=== PATIENT | female | born 2000 | race Caucasian/White ===

== ENCOUNTER 2025-01-04 09:16 | Emergency (ER) | payer OTHER, SELFPAY ==
[2025-01-04 09:16] VITALS: BP 127/82; PULSE 81; RESP 18; TEMP 36.8; O2SAT 100; BMI 16.7
--- NOTE | 2025-01-04 10:25 | EX.ED.DYSGE1 ---
HPI History of Present Illness Chief Complaint: Anxiety Narrative Narrative: Chief complaint and HPI: 24-year-old female with past medical history of depression and anxiety presents for evaluation of anxiety. Patient states since September her psychiatrist has been weaning down her sertraline. States she was on 50 mg daily and is now on 25 mg daily. Since decreasing her sertraline she feels that her anxiety is worsening. She recently lost her health insurance and gained it back and therefore she did not follow-up with her psychiatrist. Patient states earlier today she developed a panic attack and states she is still anxious. Associated symptom is nausea. She denies any visual or auditory hallucinations. Denies any homicidal or suicidal ideation. Review of systems: See HPI Medications: As listed on the chart Allergies: As listed on the chart PFSH: Per chart Vital signs: As listed on the chart. Reviewed. Physical exam: Gen: A&O x3, NAD but mildly anxious Head: Normocephalic, atraumatic Eyes: No sclera icterus, conjunctiva clear ENT: Moist mucous membranes CV: RRR, no murmurs Resp: Lungs CTA BL, no w/r/c Musc: Full ROM, no deformity Skin: Warm, dry Psych: Cooperative, mildly anxious [facility] Medical History (Updated 01/04/25 @ 09:42 by Fartun Martinez) Anxiety Home Medications ?Medication ?Instructions ?Recorded ?Last Taken ?Type sertraline 25 mg tablet 25 mg PO DAILY 01/04/25 Unknown History Allergy/AdvReac Type Severity Reaction Status Date / Time amoxicillin AdvReac Upset Verified 01/04/25 09:17 Stomach Social History Smoking Status: Light Smoker (<10/day) EXAM Physical Exam Const Vital Signs: 01/04/25 09:16 Temperature 98.2 F Temperature Source Oral Pulse Rate 81 Respiratory Rate 18 Blood Pressure 127/82 H Blood Pressure Mean 97 Pulse Ox 100 Oxygen Delivery Method Room Air MDM MDM MDM Narrative Medical decision making narrative: 24-year-old female with past medical history of depression and anxiety presents for evaluation of anxiety. Patient states since September her psychiatrist has been weaning down her sertraline. States she was on 50 mg daily and is now on 25 mg daily. Since decreasing her sertraline she feels that her anxiety is worsening. Patient states earlier today she developed a panic attack and states she is still anxious. Associated symptom is nausea. She denies any visual or auditory hallucinations. Denies any homicidal or suicidal ideation. On presentation, patient no acute distress but mildly anxious. Her vitals are stable. She does have a ride home to the emergency department. P.o. Ativan and Adria ordered. Will monitor. Differential diagnosis includes but is not limited to anxiety, panic attack. On reevaluation, patient states her anxiety has improved. She has remained in no acute distress here in the emergency department. Patient stable to discharge home. Recommend following up with psychiatrist. Return precautions explained. She confirmed understand the plan. Impression: 1. Anxiety reaction 2. History of anxiety Discharge Plan Triage Chief Complaint: Anxiety ED Provider: Manav Mayorga Dx/Rx/DC Orders Prescriptions: No Action sertraline 25 mg tablet 25 mg PO DAILY Primary Care Provider: Care Physician,Bianka Primary Referrals: NOT,DEFINED [Non-Staff, None] Print Language: Lithuanian
--- OUTSIDE RECORDS SUMMARY | 2025-01-04 10:42 | XMS RPT_ITS | CCD ---
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 automated imaging and review system which assists the laboratory in evaluating cells on ThinPrep tests. Following automated imaging selected caal from every slide are reviewed by a clinical rn liaison. Specimen processing and Primary Screening performed at: [facility] - [address] [place] [address] 03/19/23 Yes Normal [facility] Comment on above: Performed By: #### [id number] #### [facility] [address] [place] [address] Rory Rueda M.D. [id number] CULTURE, URINE, ROUTINEon CULTURE, URINE, ROUTINE SEE NOTE Normal [facility] Comment on above: Result Comment: CULTURE, URINE, ROUTINE Micro Number: [id number] Test Status: Final Specimen Source: Urine, clean catch Specimen Quality: Adequate Result: Less than 10,000 CFU/mL of single Gram positive organism isolated. No further testing will be performed. If clinically indicated, recollection using a method to minimize contamination, with prompt transfer to Urine Culture Transport Tube, is recommended. Performed By: #### 3 [id number] #### [facility] [address], [address] [place] [address] Powerhouse Electrician: Ernie Solis MD Laboratory - Chemistry and C hemistry - challengeOrdered By: Mabel Valdivia on 02-26-2024 Bilirubin Ql (U) Negative Negative [facility] Glucose Ql (U) Negative Normal, Negative mg/dL [facility] Ketones Ql (U) Negative Negative mg/dL [facility] pH (U) 5.5 [pH] 5.0 - 7.0 [facility] Specific gravity (U) [Rel density] 1.025 1.005 - 1.025 [facility] Urobilinogen Qn (U) 0.2 mg/dL <2.0, 0. 2, Normal, Negative, 1.0, 2.0, <1.0 [facility] Laboratory - Hematology and Cell countsOrdered By: Mabel Valdivia on 02-26-2024 Hemoglobin Ql (U) Negative Negative [facility] Laboratory - Specimen inform ationOrdered By: Mabel Valdivia on 02-26-2024 Color (U) Yellow Yellow, Light Yellow, Dark Yellow [facility] Laboratory - UrinalysisOrder ed By: Mabel Valdivia on 02-26-2024 Leukocyte esterase Test strip Ql (U) Negative Negative [facility] Nitrite Ql (U) Negative Negative [facility] Protein Ql (U) 100 mg/dL Abnormal Negative [facility] No Panel InformationOrdered By: Mabel Valdivia on 02-26-2024 Clarity, UA Clear Clear [facility] Interpretation and review of laboratory results Abnormal [facility] URINE AEROBIC CULTUREon 02-16 URINE AEROBIC CULTURE EXT JANI - CULTURE, URINE, ROUTINE SEE NOTE CULTURE, URINE, ROUTINE Micro Number: [id number] Test Status: Final Specimen Source: Urine, clean catch Specimen Quality: Adequate Result: Less than 10,000 CFU/mL of single Gram positive organism isolated. No further testing will be performed. If clinically indicated, recollection using a method to minimize contamination, with prompt transfer to Urine Culture Transport Tube, is recommended. Normal [facility] T-SPOT TB SCREENon [place] - T-SPOT TB Negative Normal [facility] Comment on above: Order Comment: Darcie leong see scanned result for additional information Performed By: #### [id number] #### [facility] [address] [address] TSPOT URINALYSIS, CULTURE IFon BACTERIA FEW Normal Few [facility] Comment on above: Performed By: #### Soy Burgess UCNT1 #### [facility] [address] [place] [address] #### UC-R #### Main Laboratory [address] [place], [place] EPITHELIAL 0 -2 Normal 0 -2 [facility] Comment on above: Performed By: #### Soy Burgess UCNT1 #### [facility] [address] [place] [address] #### UC-R #### Main Laboratory [facility] [address] [place], [place] RBC 0 -2 Normal 0 -2 [facility] Comment on above: Performed By: #### Soy Burgess UCNT1 #### [facility] [address] [place] [address] #### UC-R #### Main Laboratory [address] [place], [place] WBC 11 -20 Abnormal 0 -2 [facility] Comment on above: Performed By: #### Soy Burgess UCNT1 #### [facility] [address] [place] [address] #### UC-R #### Main Laboratory [address] [place], [place] Appearance (U) SLCLOUDY Abnormal Clear [facility] Comment on above: Performed By: #### Soy Burgess UCNT1 #### [facility] [address] [place] [address] #### UC-R #### Main Laboratory [facility] [place], [place] Bilirubin Ql (U) Negative Normal NEGATIVE [facility] Comment on above: Performed By: #### U A, UCNT1 #### [facility] [address] [place] [address] #### UC-R #### Main Laboratory [address] [place] [address] [address] [place], [place] Color (U) Yellow Normal YELLOW [facility] Comment on above: Performed By: #### U A, UCNT1 #### [facility] [address] [place] [address] #### UC-R #### Main Laboratory [address] [place] [address] [address] [place], [place] Glucose Ql (U) Negative Normal NEGATIVE [facility] Comment on above: Performed By: #### U A, UCNT1 #### [facility] [address] [place] [address] #### UC-R #### Main Laboratory [address] [place] [address] [address] [place], [place] Hemoglobin Ql (U) Trace-intact Abnormal NEGATIVE [facility] Comment on above: Performed By: #### U A UCNT1 #### [facility] [address] [place] [address] #### UC-R #### Main Laboratory [address] [place] [address], [place] Ketones Ql (U) Negative Normal NEGATIVE [facility] Comment on above: Performed By: #### U A, UCNT1 #### [facility] [address] [place] [address] 68[address] #### UC-R #### Main Laboratory [address] [place] [address] [address] [place], [place] LEUK. ESTERASE Small Abnormal NEGATIVE [facility] Comment on above: Performed By: #### U A, UCNT1 #### [facility] [address] [place] [address] #### UC-R #### Main Laboratory [facility] [address] Nitrite Ql (U) Negative Normal NEGATIVE [facility] Comment on above: Performed By: #### Soy Burgess UCNT1 #### [facility] [address] [place] [address] 9[address] #### UC-R #### Main Laboratory [address] [place] [address] pH (U) 7.0 [pH] Normal 5.0-7.0 [facility] Comment on above: Performed By: #### Soy Burgess UCNT1 #### [facility] [address] [place] [address] #### UC-R #### Main Laboratory [address] [place] [address] Protein Ql (U) Negative Normal NE[facility]IVE [facility] Comment on above: Performed By: #### Soy Burgess UCNT1 #### [facility] [address] [place] [address] 186[address] #### UC-R #### Main Laboratory [address] [place] [address] SP. GRAV. 1.015 Normal 1.002-1.030 [facility] Comment on above: Performed By: #### Soy Burgess UCNT1 #### [facility] [address] [place] [address] #### UC-R #### Main Laboratory [address] [place] [address] Urobilinogen (U) [Mass/Vol] 0.2 mg/dL Normal <1.0 [facility] Comment on above: Performed By: #### Soy Burgess UCNT1 #### [facility] [address] [place] [address] 74555 #### UC-R #### Main Laboratory [address] [place] [address] URINE CULTURE - REFLEXEDon 0 09-15-2023 URINE CULTURE - REFLEXED [facility] Department of Laboratory Medicine PATIENT: WILLOW VALDEZ LOCATION: [facility] IKala#: : [id number] AGE: 22 SEX: F DISCHARGED: // M I C R O B I O L O G Y ORDER #: [id number] ORDERED BY: ALEIDA RAMIREZ SOURCE: Urine COLLECTED: 09/15/2023 13:55 URINE CULTURE - REFLEXED - F 09/18/2023 09:31 No Growth. S = Sensitive R = Resisitant I = Intermediate LAB: [facility] [address] ATT.PHYS.: ALEIDA RAMIREZ LOCATION: [facility] Comment on above: Performed By: #### Soy Burgess UCNT1 #### [facility] [address] [place] [address] #### UC-R #### Main Laboratory [address] [place], [place] URINE CULTURE NOTEon 024 URINE CULTURE NOTE see below Abnormal [facility] Comment on above: Result Comment: Urin alysis results meet accepted criteria for reflexed urine culture to be performed. Urine culture results to follow. Performed By: #### U A, UCNT1 #### [facility] [address] [place] [address] #### UC-R #### Main Laboratory [address] [place] [address] Laboratory - Microbiology an d Antimicrobial susceptibilityOrdered By: Roxanne Bourne on 07-03-2023 S. pyogenes Ag Ql (Throat) Negative Negative [facility] No Panel InformationOrdered By: Roxanne Bourne on 07-03-2023 [facility] URINALYSIS, CULTURE IFon BACTERIA FEW Normal Few [facility] Comment on above: Performed By: #### U C-R #### Main Laboratory [address] [place] [address] #### UCNT1, UA #### [facility] [address] [place] [address] RBC 0 -2 Normal 0 -2 [facility] Comment on above: Performed By: #### U C-R #### Main Laboratory [address] [place] [address] #### UCNT1, UA #### [facility] [address] [place] [address] WBC 10 -20 Abnormal 0 -2 [facility] Comment on above: Performed By: #### U C-R #### Main Laboratory [address] [place] [address] #### UCNT1, UA #### [facility] [address] [place] [address] Appearance (U) Clear Normal Clear [facility] Comment on above: Performed By: #### U C-R #### Main Laboratory [address] [place] [address] #### UCNT1, UA #### [facility] [address] [place] [address] Bilirubin Ql (U) Negative Normal NEGATIVE [facility] Comment on above: Performed By: #### U C-R #### Main Laboratory [address] [place] [address] #### UCNT1, UA #### [facility] [address] [place] [address] Color (U) Yellow Normal YELLOW [facility] Comment on above: Performed By: #### U C-R #### Main Laboratory [address] [place] [address] #### UCNT1, UA #### [facility] [address] [place] [address] Glucose Ql (U) Negative Normal NEGATIVE [facility] Comment on above: Performed By: #### U C-R #### Main Laboratory [address] [place] [address] #### UCNT1, UA #### [facility] [address] [place] [address] Hemoglobin Ql (U) Trace-intact Abnormal NEGATIVE [facility] Comment on above: Performed By: #### U C-R #### Main Laboratory [address] [place] [address] #### UCNT1, UA #### [facility] [address] [place] [address] Ketones Ql (U) Negative Normal NEGATIVE [facility] Comment on above: Performed By: #### U C-R #### Main Laboratory [address] [place] [address] #### UCNT1, UA #### [facility] [address] [place] [address] LEUK. ESTERASE Trace Abnormal NEGATIVE [facility] Comment on above: Performed By: #### U C-R #### Main Laboratory [address] [place] [address] #### UCNT1, UA #### [facility] [address] [place] [address] Nitrite Ql (U) Negative Normal NEGATIVE [facility] Comment on above: Performed By: #### U C-R #### Main Laboratory [address] [place] [address] #### UCNT1, UA #### [facility] [address] [place] [address] pH (U) 6.5 [pH] Normal 5.0-7.0 [facility] Comment on above: Performed By: #### U C-R #### Main Laboratory [address] [place] [address] #### UCNT1, UA #### [facility] [address] [place] [address] Protein Ql (U) 100 mg/dL Abnormal NEGATIVE [facility] Comment on above: Performed By: #### U C-R #### Main Laboratory [address] [place] [address] #### UCNT1, UA #### [facility] [address] [place] [address] SP. GRAV. >=1.030 Abnormal 1.002-1.030 [facility] Comment on above: Performed By: #### U C-R #### Main Laboratory [address] [place] [address] #### UCNT1, UA #### [facility] [address] [place] [address] Urobilinogen (U) [Mass/Vol] 0.2 mg/dL Normal <1.0 [facility] Comment on above: Performed By: #### U C-R #### Main Laboratory [address] [place], [place] #### UCNT1, #### [facility] [place] [address] URINE CULTURE - REFLEXEDon 0 12-16-2022 URINE CULTURE - REFLEXED [facility] Department of Laboratory Medicine PATIENT: WILLOW VALDEZ LOCATION: [facility]#: : [id number] AGE: 22 SEX: F DISCHARGED: // M I C R O B I O L O G Y ORDER #: [id number] ORDERED BY: LINO BLANCHARD SOURCE: Urine COLLECTED: 12/16/2022 15:44 URINE CULTURE - REFLEXED - F 12/20/2022 08:43 Organism #1 - Staphylococcus saprophyticus >100,000cfu/mL Rifampin should not be used alone for antimicrobial therapy. Inducible Clindamycin Resistance Negative. ISOLATE !ORG# 01! ANTIBIOTIC ! Ciprofloxacin ! S ! Clindamycin ! R ! Erythromycin ! R ! Gentamicin ! S ! Levofloxacin ! S ! Linezolid ! S ! Moxifloxacin ! S ! Nitrofurantoin ! S ! Oxacillin THU ! R ! Penicillin-G ! R ! Quinupristin/Dalfo prist ! S ! Rifampin ! S ! Tetracycline ! S ! Trimethoprim/Sulfa ! S ! Vancomycin ! S ! S = Sensitive R = Resisitant I = Intermediate LAB: [facility] [address] ATT.PHYS.: LINO BLANCHARD LOCATION: [facility] Comment on above: Performed By: #### U C-R #### Main Laboratory [address] [place], [place] #### UCNT1, UA #### [facility] [phone] [address] [place] [address] URINE CULTURE NOTEon 023 URINE CULTURE NOTE see below Abnormal [facility] Comment on above: Result Comment: Urin alysis results meet accepted criteria for reflexed urine culture to be performed. Urine culture results to follow. Performed By: #### U C-R #### Main Laboratory [address] [place], [place] #### UCNT1, UA #### [facility] [address] [place] [address] Basic metabolic 2000 panelon 09-21-2022 Anion gap [Moles/Vol] 14 mmol/L 10 - 2 0 mmol/L [facility] Calcium [Mass/Vol] 9.6 mg/dL 8.4 - 10. 2 mg/dL [facility] Chloride [Moles/Vol] 104 mmol/L 98 - 10 8 mmol/L [facility] Creatinine [Mass/Vol] 0.82 mg/dL 0.40 - 1.10 mg/dL [facility] GFR/1.73 sq M.predicted CKD-EPI (S/P/Bld) [Vol rate/Area] 105 - PINF [facility] Comment on above: Estimated GFR was ca lculated using the 2020 CKD-EPI creatinine equation. Glucose [Mass/Vol] 97 mg/dL 65 - 99 mg/dL [facility] HCO3 [Moles/Vol] 26 mmol/L 21 - 32 mmol/L [facility] Potassium [Moles/Vol] 4.5 mmol/L 3.5 - 5.1 mmol/L [facility] Sodium [Moles/Vol] 139 mmol/L 135 - 145 mmol/L [facility] Urea nitrogen [Mass/Vol] 8 mg/dL 8 - 25 mg/d L [facility] Urea nitrogen/Creatinine [Mass ratio] 9.8 mg/mg Low 10.0 - 20.0 [facility] has implemented the eGFR calculation approach that does not have a coefficient for race that conforms to the NKF-ASN Task Force Recommendations. [facility] CBC Auto Differentialon 07-0 Basophils (Bld) [#/Vol] 0.03 10*3/uL [facility] Basophils/100 WBC (Bld) 0.5 % [facility] Eosinophils (Bld) [#/Vol] 0.05 10*3/uL [facility] Eosinophils/100 WBC (Bld) 0.9 % [facility] Erythrocyte distribution width (RBC) [Entitic vol] 11.8 % 11.6 - 14.8 % [facility] Hematocrit (Bld) [Volume fraction] 39.9 % 36.0 - 46.0 % [facility] Hemoglobin (Bld) [Mass/Vol] 12.9 g/dL 12.0 - 16.0 g/dL [facility] Immature granulocytes (Bld) [#/Vol] 0.01 10*3/uL [facility] Immature granulocytes/100 WBC (Bld) 0.20 % [facility] Comment on above: The IG parameter is the percentage of metamyelocytes, myelocytes and promyelocytes. An immature granulocyte count (IG) of 1% or more suggests the possibility of infection, an IG count of 3% is very likely related to an infection. Lymphocytes (Bld) [#/Vol] 1.58 10*3/uL [facility] Lymphocytes/100 WBC (Bld) 28.9 % [facility] MCH (RBC) [Entitic mass] 30.0 pg 26. 0 - 34.0 pg [facility] MCHC (RBC) [Mass/Vol] 32.3 g/dL 31.0 - 37.0 g/dL [facility] MCV (RBC) [Entitic vol] 92.8 fL 80.0 - 100.0 fL [facility] Monocytes (Bld) [#/Vol] 0.43 10*3/uL [facility] Monocytes/100 WBC (Bld) 7.9 % [facility] Neutrophils (Bld) [#/Vol] 3.37 10*3/uL [facility] Neutrophils/100 WBC (Bld) 61.6 % [facility] Nucleated RBC (Bld) [#/Vol] 0.00 10*3/uL [facility] Nucleated RBC/100 WBC (Bld) [Ratio] 0.0 % [facility] Platelet mean volume (Bld) [Entitic vol] 11.8 fL 9.4 - 12.4 fL [facility] Platelets (Bld) [#/Vol] 256 10*3/uL [facility] RBC (Bld) [#/Vol] 4.30 10*6/uL [facility] ealth WBC (Bld) [#/Vol] 5.47 10*3/uL [facility] Ferritin [Mass/Vol]on 2022 Interpretation and review of laboratory results Normal [facility] Laboratory - Chemistry and C hemistry - challengeon 09-21-2022 Ferritin [Mass/Vol] 25 ng/mL 13 - 150 ng/mL [facility] No Panel Informationon 09-21 Interpretation and review of laboratory results Abnormal [facility] TSH DL <= 0.005 mIU/L Qnon 0 09-21-2022 TSH Qn 5.19 m[IU]/L [facility] No Panel Informationon 09-15 Interpretation and review of laboratory results Normal [facility] TB Skin Test Negative Negative [facility] Urinalysis macro (dipstick) panel (U)on 06-22-2022 Appearance (U) [facility] bilirubin dept urine Negative [facility] blood dept urine SMALL [facility] Color (U) YELLOW [facility] glucose dept urine Negative [facility] ketones dept urine Negative [facility] leukocyte dept urine SMALL [facility] nitrites dept urine Positive [facility] pH urine dept 7.0 [facility] protein dept urine Negative [facility] specific gravity dept urine 1.020 [facility] urobiliinogen dept urine 0.2 [facility] COVID-19, Molecularon 2021 SARS-CoV-2 (COVID-19) RdRp gene MACKENZIE+probe Ql (Resp) Not detected Not Detected [facility] Comment on above: This test was perfor med under the FDA's Emergency Use Authorization (EUA). Testing was performed using the Patel ID NOW COVID-19 assay on the ID NOW platform. This test has not been approved for use in asymptomatic patients and its performance in this patient population has not been evaluated. Negative results do not rule out the presence of SARS-CoV-2/COVID-19. Fact sheets for the EUA can be found at the following links: For Healthcare Providers: https://www.fda.gov/media/456667/download For Patients: https://www.fda.gov/media/527168/download SARS-CoV-2 (COVID-19) RdRp g johana MACKENZIE+probe Ql (Resp)on 06-29-2021 Interpretation and review of laboratory results Normal [facility] FLUAV+FLUBV Ag Ql (Nose)on 0 06-28-2021 influenza A Negative [facility] influenza B Negative [facility] CT ABDOMEN PELVIS WITH IV CO NTRAST ONLYon 07-31-2018 CT ABDOMEN PELVIS WITH IV CONTRAST ONLY EXAMINATION: CT ABDOMEN PELVIS WITH IV CONTRAST ONLY HISTORY: ORDERING SYSTEM PROVIDED HISTORY: rlq pain ro appy, TECHNOLOGIST PROVIDED HISTORY: Reason for exam: Patient has had LRQ pain for about 1 week, has had a UTI and mono recently. Illness/Other Encounter Type: Initial Additional signs and symptoms: None ORDERING SYSTEM PROVIDED DIAGNOSIS CODES: COMPARISON: None TECHNIQUE: CT examination of the abdomen and pelvis following the administration of intravenous contrast. Coronal and sagittal reformations were performed. Dose reduction techniques were achieved by using automated exposure control and/or adjustment of mA and/or kV according to patient size and/or use of iterative reconstruction technique. CONTRAST: IOPAMIDOL 76 % INTRAVENOUS SOLUTION - 75 mL, FINDINGS: CT SCAN OF THE ABDOMEN: The lung bases are clear. There is elongation of the left lobe of the liver. No hepatic masses or biliary ductal dilatation is seen. Spleen, pancreas, adrenal glands, and kidneys are normal. Proximal bowel is normal. No free fluid or inflammatory changes are seen. CT SCAN OF THE PELVIS: The distal ureters and bladder are normal. Uterus is normal with a small fibroid posteriorly in the fundus measuring 9 mm. Small cyst in the right ovary. Distal bowel and appendix are normal. No evidence for free fluid or inflammatory changes. IMPRESSION: 1. No acute process identified. No evidence for appendicitis. 2. Small physiologic cyst, right ovary. Small uterine fibroid suspected, measuring 8 mm. MA/ads Workstation ID: [id number] Dictated by: IVONNE RILEY on SunJuly 31, 2018 1:43:18 PM EDT Transcribed by: AFRICA BERNARD IN [employer] on SunJuly 31, 2018 1:48:19 PM EDT Finalized by: IVONNE RILEY on SunJuly 31, 2018 2:16:23 PM EDT Dictated by: IVONNE RILEY on SunJuly 31, 2018 1:43:18 PM EDT Transcribed by: AFRICA BERNARD IN [employer] on SunJuly 31, 2018 1:48:19 PM EDT Finalized by: IVONNE RILEY on SunJuly 31, 2018 2:16:[address] [facility] Comment on above: Order Comment: Reaso n for exam?:Patient has had LRQ pain for about 1 week, has had a UTI and mono recently. Injury/Trauma or Illness?:Illness/Other How long have you had these symptoms (acute/chronic)?:Acute Type of Exam?:Initial Additional signs and symptoms?:None CT Abdomen Pelvis With IV Co ntrast Onlyon 07-31-2018 EXAMINATION: CT ABDOMEN PELVIS WITH IV CONTRAST ONLY HISTORY: ORDERING SYSTEM PROVIDED HISTORY: rlq pain ro appy, TECHNOLOGIST PROVIDED HISTORY: Reason for exam: Patient has had LRQ pain for about 1 week, has had a UTI and mono recently. Illness/Other Encounter Type: Initial Additional signs and symptoms: None ORDERING SYSTEM PROVIDED DIAGNOSIS CODES: COMPARISON: None TECHNIQUE: CT examination of the abdomen and pelvis following the administration of intravenous contrast. Coronal and sagittal reformations were performed. Dose reduction techniques were achieved by using automated exposure control and/or adjustment of mA and/or kV according to patient size and/or use of iterative reconstruction technique. CONTRAST: IOPAMIDOL 76 % INTRAVENOUS SOLUTION - 75 mL, FINDINGS: CT SCAN OF THE ABDOMEN: The lung bases are clear. There is elongation of the left lobe of the liver. No hepatic masses or biliary ductal dilatation is seen. Spleen, pancreas, adrenal glands, and kidneys are normal. Proximal bowel is normal. No free fluid or inflammatory changes are seen. CT SCAN OF THE PELVIS: The distal ureters and bladder are normal. Uterus is normal with a small fibroid posteriorly in the fundus measuring 9 mm. Small cyst in the right ovary. Distal bowel and appendix are normal. No evidence for free fluid or inflammatory changes. [facility] 1. No acute process identified. No evidence for appendicitis. 2. Small physiologic cyst, right ovary. Small uterine fibroid suspected, measuring 8 mm. MA/ads Workstation ID: [id number] [employer] - 07/31/2018 2:18 PM EDT EXAMINATION: CT ABDOMEN PELVIS WITH IV CONTRAST ONLY HISTORY: ORDERING SYSTEM PROVIDED HISTORY: rlq pain ro appy, TECHNOLOGIST PROVIDED HISTORY: Reason for exam: Patient has had LRQ pain for about 1 week, has had a UTI and mono recently. Illness/Other Encounter Type: Initial Additional signs and symptoms: None ORDERING SYSTEM PROVIDED DIAGNOSIS CODES: COMPARISON: None TECHNIQUE: CT examination of the abdomen and pelvis following the administration of intravenous contrast. Coronal and sagittal reformations were performed. Dose reduction techniques were achieved by using automated exposure control and/or adjustment of mA and/or kV according to patient size and/or use of iterative reconstruction technique. CONTRAST: IOPAMIDOL 76 % INTRAVENOUS SOLUTION - 75 mL, FINDINGS: CT SCAN OF THE ABDOMEN: The lung bases are clear. There is elongation of the left lobe of the liver. No hepatic masses or biliary ductal dilatation is seen. Spleen, pancreas, adrenal glands, and kidneys are normal. Proximal bowel is normal. No free fluid or inflammatory changes are seen. CT SCAN OF THE PELVIS: The distal ureters and bladder are normal. Uterus is normal with a small fibroid posteriorly in the fundus measuring 9 mm. Small cyst in the right ovary. Distal bowel and appendix are normal. No evidence for free fluid or inflammatory changes. IMPRESSION: 1. No acute process identified. No evidence for appendicitis. 2. Small physiologic cyst, right ovary. Small uterine fibroid suspected, measuring 8 mm. MA/ads Workstation ID: [id number] [facility] POC CBC and Differentialon 0 - Basophils (Bld) [#/Vol] 0.02 10*3/uL [facility] Basophils/100 WBC (Bld) 0.2 % [facility] Eosinophils (Bld) [#/Vol] 0.03 10*3/uL [facility] Eosinophils/100 WBC (Bld) 0.3 % [facility] Erythrocyte distribution width (RBC) [Entitic vol] 11.5 % Low 11.6 - 14.8 % [facility] Hematocrit (Bld) [Volume fraction] 43.0 % 36 - 46 % [facility] Hemoglobin (Bld) [Mass/Vol] 14.1 g/dL 12 - 16 g/dL [facility] Immature granulocytes (Bld) [#/Vol] 0.01 10*3/uL [facility] Immature granulocytes/100 WBC (Bld) 0.10 % [facility] Comment on above: The IG parameter is the percentage of metamyelocytes, myelocytes, and promyelocytes. Interpretation and review of laboratory results Abnormal [facility] Lymphocytes (Bld) [#/Vol] 1.06 10*3/uL Low [facility] Lymphocytes/100 WBC (Bld) 10.5 % [facility] MCH (RBC) [Entitic mass] 30.2 pg 25 - 35 pg [facility] MCHC (RBC) [Mass/Vol] 32.8 g/dL 31 - 37 g/dL [facility] MCV (RBC) [Entitic vol] 92.1 fL 78 - 102 fL [facility] Monocytes (Bld) [#/Vol] 1.12 10*3/uL [facility] Monocytes/100 WBC (Bld) 11.1 % [facility] Neutrophils (Bld) [#/Vol] 7.88 10*3/uL [facility] Neutrophils/100 WBC (Bld) 77.8 % [facility] Platelet mean volume (Bld) [Entitic vol] 10.7 fL 9 - 15.5 fL [facility] Platelets (Bld) [#/Vol] 272 10*3/uL [facility] RBC (Bld) [#/Vol] 4.67 10*6/uL [facility] WBC (Bld) [#/Vol] 10.12 10*3/uL [facility] POC Liver Panel Pluson 07-31 Albumin [Mass/Vol] 3.9 g/dL 3.2 - 4.5 g/dL [facility] ALP [Catalytic activity/Vol] 81 U/L Low 110 - 630 U/L [facility] ALT [Catalytic activity/Vol] 11 U/L 0 - 40 U/L [facility] Amylase [Catalytic activity/Vol] 58 U/L 25 - 115 U/L [facility] AST [Catalytic activity/Vol] 18 U/L 0 - 45 U/L [facility] Bilirubin [Mass/Vol] 0.7 mg/dL 0 - 1.3 mg/dL [facility] Gamma glutamyl transferase [Catalytic activity/Vol] 9 U/L 7 - 33 U/L [facility] Interpretation and review of laboratory results Abnormal [facility] Protein [Mass/Vol] 7.5 g/dL 6 - 8 g/dL [facility] POC , Urineon 07-31 Beta HCG ( test) Ql (U) Dilute urine specimens, as indicated by a low specific gravity (<1.010) may not contain traffic workforce representative levels of hCG. If is still suspected, a serum test or repeat urine test using a first morning urine specimen should be considered. [facility] HCG ( test) Ql (U) Negative Negative [facility] Interpretation and review of laboratory results Normal [facility] POC Urinalysis Dipstick, Aut oon 07-31-2018 Bilirubin Ql (U) Negative Negative [facility] Glucose Ql (U) 100 Abnormal Negative mg/dL [facility] Hemoglobin Ql (U) Large Abnormal Negative [facility] Interpretation and review of laboratory results Abnormal [facility] Ketones Ql (U) 40 Abnormal Negative mg/dL [facility] Leukocyte esterase Test strip Ql (U) Small Abnormal Negative [facility] Nitrite Ql (U) Negative Negative [facility] pH (U) 6.5 [pH] [facility] Protein Ql (U) >=300 Abnormal Negative mg/dL [facility] Specific gravity (U) [Rel density] 1.020 [facility] Urobilinogen Qn (U) 0.2 mg/dL <2.0 [facility] POC Venous Blood Gases with Full Panelon 07-31-2018 Base excess Calc (BldV) [Moles/Vol] 2.6 mmol/L [facility] Calcium.ionized [Mass/Vol] 5.1 mg/dL 4.5 - 5.3 mg/dL [facility] Chloride [Moles/Vol] 105 mmol/L 98 - 10 8 mmol/L [facility] CO2 (BldV) [Partial pressure] 49.4 mm[Hg] [facility] Creatinine [Mass/Vol] 0.98 mg/dL 0.5 - 1 mg/dL [facility] GFR/1.73 sq M predicted among non-blacks MDRD (S/P/Bld) [Vol rate/Area] The eGFR should be used for monitoring renal function only and not for medication dosing. Specimens collected in a lithium heparin tube may show erroneous pO2, pCO2 and related calculations due to aerobic handling. If the most accurate venous blood gas results are needed, use a heparinized blood gas syringe. [facility] Glucose [Mass/Vol] 107 mg/dL High 65 - 99 mg/dL [facility] HCO3 (Bld) [Moles/Vol] 29.0 mmol/L High 24 - 28 mmol/L [facility] Hematocrit (Bld) [Volume fraction] 49 % High 36 - 46 % [facility] Hemoglobin (Bld) [Mass/Vol] 16.8 g/dL High 12 - 16 g/dL [facility] Interpretation and review of laboratory results Abnormal [facility] Lactate [Moles/Vol] 0.8 mmol/L 0.6 - 2 mmol/L [facility] Oxygen (BldV) [Partial pressure] 19 mm[Hg] Low [facility] Oxygen saturation in Venous blood 26.3 % [facility] pH (BldV) 7.38 [pH] [facility] Potassium [Moles/Vol] 3.7 mmol/L 3.5 - 5.1 mmol/L [facility] Sodium [Moles/Vol] 140 mmol/L 135 - 145 mmol/L [facility] POC Urinalysis Dipstickon Bilirubin Ql (U) Negative Negative [facility] Glucose Ql (U) Negative Normal, Negative mg/dL [facility] Hemoglobin Ql (U) Moderate Abnormal Negative [facility] Interpretation and review of laboratory results Abnormal [facility] Ketones Ql (U) Negative Negative mg/dL [facility] Leukocyte esterase Test strip Ql (U) Small Abnormal Negative [facility] Nitrite Ql (U) Positive Abnormal Negative [facility] pH (U) 6.5 [pH] [facility] Protein Ql (U) 300 Abnormal Negative mg/dL [facility] Specific gravity (U) [Rel density] 1.025 [facility] Urobilinogen Qn (U) 0.2 mg/dL <2.0, 0. 2, Normal, Negative, 1.0, 2.0, <1.0 [facility] POC RAPID STREP Aon 07-26-19 19 S. pyogenes Ag Ql (Throat) Negative Negative [facility] POC CBC and Differentialon 0 06-01-2018 Basophils #/vol (Bld) 0.03 10*3/uL [facility] Basophils/100 WBC (Bld) 0.5 % [facility] Eosinophils #/vol (Bld) 0.02 10*3/uL [facility] Eosinophils/100 WBC (Bld) 0.3 % [facility] Erythrocyte distribution width Entitic volume (RBC) 11.6 % 11.6 - 14.8 % [facility] Hematocrit Volume Fraction (Bld) 42.5 % 36 - 46 % [facility] Hemoglobin mass conc (Bld) 13.9 g/dL 12 - 16 g/dL [facility] Immature granulocytes #/vol (Bld) 0.00 10*3/uL [facility] Immature granulocytes/100 WBC (Bld) 0.00 % [facility] Comment on above: The IG parameter is the percentage of metamyelocytes, myelocytes, and promyelocytes. Interpretation and review of laboratory results Abnormal [facility] Lymphocytes #/vol (Bld) 0.38 10*3/uL [facility] Lymphocytes/100 WBC (Bld) 6.0 % [facility] MCH Entitic mass (RBC) 30.1 pg 25 - 35 pg [facility] MCHC mass conc (RBC) 32.7 g/dL 31 - 37 g/dL [facility] MCV Entitic volume (RBC) 92.0 fL 78 - 102 fL [facility] Monocytes #/vol (Bld) 0.59 10*3/uL [facility] Monocytes/100 WBC (Bld) 9.3 % [facility] Neutrophils #/vol (Bld) 5.34 10*3/uL [facility] Neutrophils/100 WBC (Bld) 83.9 % [facility] Platelet mean volume Entitic volume (Bld) 10.9 fL 9 - 15.5 fL [facility] Platelets #/vol (Bld) 272 10*3/uL [facility] RBC #/vol (Bld) 4.62 10*6[facility]L [facility] #/vol (Bld) 6.36 10*3/uL [facility] POC Influenza A/Bon 06-02-19 19 Interpretation and review of laboratory results Abnormal [facility] POC Influenza B Ag Not Detected Not Detected [facility] POC Rapid Influenza A Ag Detected Abnormal Not Detecte d [facility] POC Mononucleosis Antibodyon 06-01-2018 Infectious [place] Positive Abnormal Negative [facility] h Internal Control Pass [facility] Interpretation and review of laboratory results Abnormal [facility] POC , Urineon 06-01 HCG ( test) Ql (U) Negative Negative [facility] HCG.beta subunit ( test) Ql (U) Dilute urine specimens, as indicated by a low specific gravity (<1.010) may not contain traffic workforce representative levels of hCG. If is still suspected, a serum test or repeat urine test using a first morning urine specimen should be considered. [facility] Interpretation and review of laboratory results Normal [facility] Urinalysis Dipstick, Aut oon 06-01-2018 Bilirubin Ql (U) Negative Negative [facility] Glucose Ql (U) Negative Negative mg/dL [facility] Hemoglobin Ql (U) Negative Negative [facility] Interpretation and review of laboratory results Abnormal [facility] Ketones Ql (U) Trace Abnormal Negative mg/dL [facility] Leukocyte esterase Test strip Ql (U) Small Abnormal Negative [facility] Nitrite Ql (U) Negative Negative [facility] pH (U) 7.0 [pH] [facility] Protein Ql (U) 100 Abnormal Negative mg/dL [facility] Specific gravity Relative Density (U) 1.030 [facility] Urobilinogen Qn (U) 0.2 mg/dL <2.0 [facility] POC RAPID STREP Aon 01-16-20 Interpretation and review of laboratory results Abnormal Invalid Interpretation Code [facility] S. pyogenes Ag Ql (Throat) Positive Abnormal Negative [facility] POC , Urineon 12-05 HCG ( test) Ql (U) Negative Invalid Interpretation Code Negative [facility] Internal Control Pass Invalid Interpretation Code [facility] Interpretation and review of laboratory results Normal Invalid Interpretation Code [facility] Specific gravity Relative Density (U) Invalid Interpretation Code [facility] XR CHEST - PA AND LATERALon 02-17-2017 XR CHEST - PA AND LATERAL REASON FOR EXAM: chest painPROCEDURE: XR CHEST - PA AND LATERALTECHNIQUE: Frontal and lateral chest radiographsCOMPARI SON: None.FINDINGS:TUBE S/LINES: None.LUNGS: The lung volumes are normal. No alveolar or interstitial opacities.PLEURA: No pneumothorax or pleural effusion.HEART AND MEDIASTINUM: The heart and mediastinal contours are normal. Theaortic arch and cardiac apex are left-sided.BONES AND SOFT TISSUES: Normal.UPPER ABDOMEN: No pneumoperitoneum. No gross abnormality.IMPRES SAMARA:Normal chest radiographs.Interp reted by:Melody Sharpe MDSigned by: Melody Sharpe MD on 02/17/2017 6:08 PM Normal [facility] XR Thoracic Spine 3 Views (S tandard)on 12-09-2016 LDL Cholesterol Mild levoconvex curvature but otherwise unremarkable. This may reflect muscle spasm. Workstation ID: [id number] Invalid Interpretation Code [employer] [facility] XR Thoracic Spine 3 Views (Standard) EXAMINATION: XR THORACIC SPINE 3 VIEWS (STANDARD) HISTORY: ORDERING SYSTEM PROVIDED HISTORY: mid thoracic pain after back handspring, TECHNOLOGIST PROVIDED HISTORY: Reason for exam: pain in mid back Injury/Trauma Cancer History: no Surgery, RadiationHistory: no Encounter Type: Initial Mechanism of injury: Hurt mid back while tumbling today. ORDERING SYSTEM PROVIDED DIAGNOSIS CODES: M62.830 Back spasm COMPARISON: None FINDINGS: Mild levoconvex curvature. No compression fracture. No subluxation. Disc spaces are maintained. Invalid Interpretation Code [employer] [facility] XR Thoracic Spine 3 Views (Standard) Interface, [facility]/2016 1:15 PM EDT EXAMINATION: XR THORACIC SPINE 3 VIEWS (STANDARD) HISTORY: ORDERING SYSTEM PROVIDED HISTORY: mid thoracic pain after back handspring, TECHNOLOGIST PROVIDED HISTORY: Reason for exam: pain in mid back Injury/Trauma Cancer History: no Surgery, RadiationHistory: no Encounter Type: Initial Mechanism of injury: Hurt mid back while tumbling today. ORDERING SYSTEM PROVIDED DIAGNOSIS CODES: M62.830 Back spasm COMPARISON: None FINDINGS: Mild levoconvex curvature. No compression fracture. No subluxation. Disc spaces are maintained. IMPRESSION: Mild levoconvex curvature but otherwise unremarkable. This may reflect muscle spasm. Workstation ID: [id number] Invalid Interpretation Code MICHELLE CRUZ [facility] XR ANKLE 3 VIEWS - RIGHTon 0 11-29-2016 XR ANKLE 3 VIEWS - RIGHT REASON FOR EXAM : lateral ankle pain. landed on foot when doing back flipTECHNIQUE: XR ANKLE 3 VIEWS - RIGHTCOMPARISON: None.FINDINGS:DIST AL TIBIA and FIBULA: No acute abnormality.TALAR DOME and 5th METATARSAL: Normal.SOFT TISSUES: Normal. No radio-opaque foreign body.ANKLE JOINT EFFUSION: None.IMPRESSION:No rmal right ankle radiographs.Interp reted by:Melody Sharpe MDSigned by: Melody Sharpe MD on 11/29/2016 4:32 PM Normal [facility] Vital Signs Date Time Vital Sign Value Performing Clinician Faci lity 06-23-2024 10:59-0400 Body height 171.5 cm Irene George DO Work Phone: [facility] 06-23-2024 10:59-0400 Body mass index (BMI) [Ratio] 17.81 kg/m2 Irene George DO Work Phone: [facility] 06-23-2024 10:59-0400 Body temperature 98.4 [degF] Irene George DO Work Phone: [facility] 06-23-2024 10:59-0400 Body weight 52.34 kg Irene George DO Work Phone: [facility] 06-23-2024 10:59-0400 Diastolic blood pressure 71 mm[Hg] Irene George DO Work Phone: [facility] 06-23-2024 10:59-0400 Heart rate 79 /min Irene George DO Work Phone: [facility] 06-23-2024 10:59-0400 Respiratory rate 16 /min Irene George DO Work Phone: [facility] 06-23-2024 10:59-0400 SaO2% (BldA) [Mass fraction] 98 % Irene Wake DO Work Phone: [facility] 06-23-2024 10:59-0400 Systolic blood pressure 119 mm[Hg] Irene George DO Work Phone: [facility] 02-26-2024 16:20-0500 Body temperature 98.6 [degF] Livia Ashart LINE LE[employer] Work Phone: [facility] 02-26-2024 16:20-0500 Diastolic blood pressure 73 mm[Hg] Livia Lydia [employer] LE[employer] Work Phone: [facility] 02-26-2024 16:20-0500 Heart rate 94 /min Livia Ashart [employer] Work Phone: [facility] 02-26-2024 16:20-0500 SaO2% (BldA) [Mass fraction] 99 % Livia Ashart [employer] Work Phone: [facility] 02-26-2024 16:20-0500 Systolic blood pressure 110 mm[Hg] Livia Sachse LINE LE[employer] Work Phone: [facility] 02-13-2024 12:49-0500 Body height 171.5 cm Irene Wake DO Work Phone: [facility] 02-13-2024 12:49-0500 Body mass index (BMI) [Ratio] 18.15 kg/m2 Irene George DO Work Phone: [facility] 02-13-2024 12:49-0500 Body temperature 99.81 [degF] Irene Wake DO Work Phone: [facility] 02-13-2024 12:49-0500 Body weight 53.34 kg Irene Wake DO Work Phone: [facility] 02-13-2024 12:49-0500 Diastolic blood pressure 77 mm[Hg] Irene Wake DO Work Phone: [facility] 02-13-2024 12:49-0500 Heart rate 90 /min Irene George DO Work Phone: [facility] 02-13-2024 12:49-0500 Respiratory rate 16 /min Irene Wake DO Work Phone: [facility] 02-13-2024 12:49-0500 SaO2% (BldA) [Mass fraction] 97 % Irene George DO Work Phone: [facility] 02-13-2024 12:49-0500 Systolic blood pressure 120 mm[Hg] Irene George DO Work Phone: [facility] 11-22-2023 10:55-0400 Body temperature 98.01 [degF] Cassandra Ley LINE LEAD Work Phone: [facility] 11-22-2023 10:55-0400 Diastolic blood pressure 86 mm[Hg] Cassandra Ley LINE LEAD Work Phone: [facility] 11-22-2023 10:55-0400 Heart rate 100 /min Cassandra Ley LINE LE[employer] Work Phone: [facility] 11-22-2023 10:55-0400 SaO2% (BldA) [Mass fraction] 96 % Cassandra Ley LINE LE[employer] Work Phone: [facility] 11-22-2023 10:55-0400 Systolic blood pressure 126 mm[Hg] Cassandra Ley LINE LE[employer] Work Phone: [facility] 11-05-2023 12:30-0400 Diastolic blood pressure 73 mm[Hg] Cassandra Ley LINE LEAD Work Phone: [facility] 11-05-2023 12:30-0400 Systolic blood pressure 121 mm[Hg] Cassandra Ley LINE LEAD Work Phone: [facility] 11-05-2023 12:28-0400 Body temperature 98.01 [degF] Cassandra Ley LINE LEAD Work Phone: [facility] 11-05-2023 12:28-0400 Heart rate 84 /min Cassandra Ley LINE LEAD Work Phone: [facility] 11-05-2023 12:28-0400 SaO2% (BldA) [Mass fraction] 100 % Cassandra Ley CNP Work Phone: [facility] 09-15-2023 01:00-0400 Body height 175.26 cm Aleida Azar [employer] 09-15-2023 01:00-0400 Body temperature 98.3 [degF] Stream Mediarman [facility] 09-15-2023 01:00-0400 Diastolic blood pressure 80 mm[Hg] Stream Mediarman [facility] 09-15-2023 01:00-0400 Heart rate 82 /min Stream [employer] [facility] 09-15-2023 01:00-0400 Respiratory rate 16 /min Stream [employer] [facility] 09-15-2023 01:00-0400 Systolic blood pressure 118 mm[Hg] Stream Mediar[employer] [facility] 07-24-2023 10:52-0400 Body height 171.5 cm Irene Wake DO Work Phone: [facility] 07-24-2023 10:52-0400 Body mass index (BMI) [Ratio] 18.61 kg/m2 Irene Wake DO Work Phone: [facility] 07-24-2023 10:52-0400 Body temperature 98.6 [degF] Irene George DO Work Phone: [facility] 07-24-2023 10:52-0400 Body weight 54.7 kg Irene Wake DO Work Phone: [facility] 07-24-2023 10:52-0400 Diastolic blood pressure 75 mm[Hg] Irene Wake DO Work Phone: [facility] 07-24-2023 10:52-0400 Heart rate 73 /min Irene Wake DO Work Phone: [facility] 07-24-2023 10:52-0400 SaO2% (BldA) [Mass fraction] 98 % Irene George DO Work Phone: [facility] 07-24-2023 10:52-0400 Systolic blood pressure 121 mm[Hg] Irene Wake DO Work Phone: [facility] 07-03-2023 08:39-0400 Body temperature 98.1 [degF] Livia Freeman LINE LEAD Work Phone: [facility] 07-03-2023 08:39-0400 Diastolic blood pressure 83 mm[Hg] Livia Freeman LINE LEAD Work Phone: [facility] 07-03-2023 08:39-0400 Heart rate 73 /min Livia Freeman LINE LEAD Work Phone: [facility] 07-03-2023 08:39-0400 SaO2% (BldA) [Mass fraction] 98 % Livia Freeman LINE LE[employer] Work Phone: [facility] 07-03-2023 08:39-0400 Systolic blood pressure 129 mm[Hg] Livia Freeman LINE LEAD Work Phone: [facility] 04-21-2023 00:00-0500 Body height 175.26 cm [employer] 04-21-2023 00:00-0500 Body mass index (BMI) [Ratio] 17.4 kg/m2 [employer] [facility] 04-21-2023 00:00-0500 Body surface area Derived from formula 1.61 m2 [employer] [facility] 04-21-2023 00:00-0500 Body temperature 98 [degF] [employer] 04-21-2023 00:00-0500 Body weight 53.43 kg [employer] [facility] 04-21-2023 00:00-0500 Diastolic blood pressure 85 mm[Hg] [employer] 04-21-2023 00:00-0500 Heart rate 79 /min [employer] [facility] 04-21-2023 00:00-0500 Respiratory rate 18 /min [employer] [facility] 04-21-2023 00:00-0500 Systolic blood pressure 123 mm[Hg] [employer] 04-11-2023 14:28-0500 Body height 171.5 cm Irene George [employer] Work Phone: [facility] 04-11-2023 14:28-0500 Body mass index (BMI) [Ratio] 18.33 kg/m2 Irene George [employer] Work Phone: [facility] 04-11-2023 14:28-0500 Body temperature 98.29 [degF] Irene Wake [employer] Work Phone: [facility] 04-11-2023 14:28-0500 Body weight 53.89 kg Irene Wake DO Work Phone: [facility] 04-11-2023 14:28-0500 Diastolic blood pressure 77 mm[Hg] Irene Wake DO Work Phone: [facility] 04-11-2023 14:28-0500 Heart rate 70 /min Irene Wake DO Work Phone: [facility] 04-11-2023 14:28-0500 Respiratory rate 16 /min Irene Wake DO Work Phone: [facility] 04-11-2023 14:28-0500 SaO2% (BldA) [Mass fraction] 100 % Irene George DO Work Phone: [facility] 04-11-2023 14:28-0500 Systolic blood pressure 107 mm[Hg] Irene George DO Work Phone: [facility] 12-16-2022 01:00-0400 Body height 175.26 cm [employer] [facility] 12-16-2022 01:00-0400 Body mass index (BMI) [Ratio] 17.9 kg/m2 [employer] [facility] 12-16-2022 01:00-0400 Body surface area Derived from formula 1.63 m2 [employer] 12-16-2022 01:00-0400 Body temperature 97.1 [degF] [employer] [facility] 12-16-2022 01:00-0400 Body weight 54.88 kg Lino ROBAUTO [facility] 12-16-2022 01:00-0400 Diastolic blood pressure 64 mm[Hg] Lino Blanchard [employer] 12-16-2022 01:00-0400 Heart rate 81 /min Linowilliam Mittaly [employer] 12-16-2022 01:00-0400 Respiratory rate 16 /min Lino Blanchard [employer] 12-16-2022 01:00-0400 Systolic blood pressure 103 mm[Hg] Lino Blanchard [employer] 12-06-2022 12:21-0400 Body height 171.5 cm Irene Wake DO Work Phone: [facility] 12-06-2022 12:21-0400 Body mass index (BMI) [Ratio] 18.21 kg/m2 Irene Wake DO Work Phone: [facility] 12-06-2022 12:21-0400 Body temperature 98.4 [degF] Irene Wake DO Work Phone: [facility] 12-06-2022 12:21-0400 Body weight 53.52 kg Irene George DO Work Phone: [facility] 12-06-2022 12:21-0400 Diastolic blood pressure 79 mm[Hg] Irene George DO Work Phone: [facility] 12-06-2022 12:21-0400 Heart rate 79 /min Irene George DO Work Phone: [facility] 12-06-2022 12:21-0400 Respiratory rate 14 /min Irene Wake DO Work Phone: [facility] 12-06-2022 12:21-0400 SaO2% (BldA) [Mass fraction] 99 % Irene George DO Work Phone: [facility] 12-06-2022 12:21-0400 Systolic blood pressure 125 mm[Hg] Irene Wake DO Work Phone: [facility] 11-29-2022 01:00-0400 Body temperature 97.4 [degF] Lino ROBAUTO [employer] 11-29-2022 01:00-0400 Body weight 54.88 kg Lino ROBAUTO [facility] 11-29-2022 01:00-0400 Diastolic blood pressure 82 mm[Hg] Lino ROBAUTO [employer] 11-29-2022 01:00-0400 Heart rate 76 /min [employer] [facility] 11-29-2022 01:00-0400 Respiratory rate 16 /min Lino ROBAUTO [facility] 11-29-2022 01:00-0400 Systolic blood pressure 142 mm[Hg] Linowilliam Mittaly [employer] 09-21-2022 14:34-0400 Body height 171.5 cm Irene Wake DO Work Phone: [facility] 09-21-2022 14:34-0400 Body mass index (BMI) [Ratio] 18.64 kg/m2 Irene Wake DO Work Phone: [facility] 09-21-2022 14:34-0400 Body temperature 98.6 [degF] Irene George DO Work Phone: [facility] 09-21-2022 14:34-0400 Body weight 54.8 kg Irene Wake DO Work Phone: [facility] 09-21-2022 14:34-0400 Diastolic blood pressure 71 mm[Hg] Irene Wake DO Work Phone: [facility] 09-21-2022 14:34-0400 Heart rate 90 /min Irene George DO Work Phone: [facility] 09-21-2022 14:34-0400 Respiratory rate 16 /min Irene George DO Work Phone: [facility] 09-21-2022 14:34-0400 SaO2% (BldA) [Mass fraction] 100 % Irene Wake DO Work Phone: [facility] 09-21-2022 14:34-0400 Systolic blood pressure 107 mm[Hg] Irene George DO Work Phone: [facility] 06-22-2022 01:00-0400 Body temperature 98.4 [degF] Aishwarya Cecille [employer] 06-22-2022 01:00-0400 Body weight 54.43 kg Aishwarya Cecille [employer] 06-22-2022 01:00-0400 Diastolic blood pressure 76 mm[Hg] Aishwarya Cecille [employer] 06-22-2022 01:00-0400 Heart rate 96 /min Aishwarya Cecille [employer] 06-22-2022 01:00-0400 Respiratory rate 20 /min Aishwarya Cecille [employer] 06-22-2022 01:00-0400 SaO2% (BldA) [Mass fraction] 99 % Aishwarya Oden [employer] 06-22-2022 01:00-0400 Systolic blood pressure 128 mm[Hg] Aishwarya Oden [employer] 12-22-2021 14:31-0400 Body temperature 98.49 [degF] Jennifer Bernens PA-C Work Phone: [facility] 12-22-2021 14:31-0400 Diastolic blood pressure 85 mm[Hg] Jennifer Bernens PA-C Work Phone: [facility] 12-22-2021 14:31-0400 Heart rate 53 /min Jennifer Bernens PA-C Work Phone: [facility] 12-22-2021 14:31-0400 SaO2% (BldA) [Mass fraction] 99 % Jennifer Bernens PA-C Work Phone: [facility] 12-22-2021 14:31-0400 Systolic blood pressure 124 mm[Hg] Jennifer Bernens PA-C Work Phone: [facility] 06-29-2021 16:29-0400 Body temperature 99 [degF] Jennifer Bernens PA-C Work Phone: [facility] 06-29-2021 16:29-0400 Diastolic blood pressure 83 mm[Hg] Jennifer Bernens PA-C Work Phone: [facility] 06-29-2021 16:29-0400 Heart rate 65 /min Jennifer Bernens PA-C Work Phone: [facility] 06-29-2021 16:29-0400 SaO2% (BldA) [Mass fraction] 98 % Jennifer Thompson PA-C Work Phone: [facility] 06-29-2021 16:29-0400 Systolic blood pressure 118 mm[Hg] Jennifer Thompson PA-C Work Phone: [facility] 06-28-2021 01:00-0400 Body mass index (BMI) [Ratio] Not Performed BMI Sirintra Parnichyakorn amSTATZ 06-28-2021 01:00-0400 Body temperature 98.6 [degF] Sirintra Parnichyakorn amSTATZ 06-28-2021 01:00-0400 Body weight Not Performed Sirintra Parnichyakorn amSTATZ 06-28-2021 01:00-0400 Diastolic blood pressure 78 mm[Hg] Sirintra Parnichyakorn amSTATZ 06-28-2021 01:00-0400 Heart rate 100 /min Sirintra Parnichyakorn amSTATZ 06-28-2021 01:00-0400 Respiratory rate 18 /min Sirintra Parnichyakorn amSTATZ 06-28-2021 01:00-0400 SaO2% (BldA) [Mass fraction] 98 % Sirintra Parnichyakorn amSTATZ 06-28-2021 01:00-0400 Systolic blood pressure 122 mm[Hg] Ahsan Hernandezjulia [facility] 04-15-2020 11:01-0500 Body weight 47.63 kg [facility] Comment on above: patient reported 09-17-2019 08:55-0400 BMI (Body Mass Index) 17.88 kg/m2 [facility] 09-17-2019 08:55-0400 Body Temperature 96.91 [degF] [facility] 09-17-2019 08:55-0400 Body weight 53.34 kg [facility]aura [facility] 09-17-2019 08:55-0400 BP Diastolic 77 mm[Hg] [facility] 09-17-2019 08:55-0400 BP Systolic 115 mm[Hg] [facility] 09-17-2019 08:55-0400 Height 172.7 cm [facility] 09-17-2019 08:55-0400 Pulse (Heart Rate) 56 /min [facility] 09-17-2019 08:55-0400 Pulse Oximetry 98 % [facility] 01-15-2019 14:09-0400 BMI (Body Mass Index) 17.7 kg/m2 [facility] 01-15-2019 14:09-0400 Body Temperature 98.29 [degF] [facility] 01-15-2019 14:09-0400 Body weight 52.98 kg [facility]idalaura [facility] 01-15-2019 14:09-0400 BP Diastolic 71 mm[Hg] [facility] 01-15-2019 14:09-0400 BP Systolic 107 mm[Hg] [facility] 01-15-2019 14:09-0400 Height 173 cm [facility] 01-15-2019 14:09-0400 [facility] ([facility] Rate) 79 /[facility] 01-15-2019 14:09-0400 Pulse Oximetry 99 % Aleidavance [facility] 01-15-2019 14:09-0400 Respiratory Rate 18 /min Aleidavance Saenz [facility] 07-31-2018 12:47-0400 BMI (Body Mass Index) 17.28 kg/m2 Sofi [facility] 07-31-2018 12:47-0400 Body Temperature 99.19 [degF] Sofi [facility] 07-31-2018 12:47-0400 [facility].07 [facility] 07-31-2018 12:47-0400 BP Diastolic 77 mm[Hg] [facility] 07-31-2018 12:47-0400 BP Systolic 107 mm[Hg] Sofi [facility] 07-31-2018 12:47-0400 Height 175.3 cm [facility] 07-31-2018 12:47-0400 Pulse (Heart Rate) 87 /min [facility] 07-31-2018 12:47-0400 Pulse Oximetry 98 % [facility] 07-31-2018 12:47-0400 Respiratory Rate 16 /min [facility] 07-31-2018 12:13-0400 BMI (Body Mass Index) 17.4 kg/m2 [facility] 07-31-2018 12:13-0400 Body Temperature 97.9 [degF] Aleida [facility] 07-31-2018 12:13-0400 BP Diastolic 76 mm[Hg] [facility] 07-31-2018 12:13-0400 BP Systolic 107 mm[Hg] [facility] 07-31-2018 12:13-0400 Height 175.3 cm [facility] 07-31-2018 12:13-0400 Pulse (Heart Rate) 89 /min [facility] 07-31-2018 12:13-0400 Pulse Oximetry 96 % [facility] 07-31-2018 12:13-0400 Weight 53.43 kg [facility] 07-30-2018 13:26-0400 BMI (Body Mass Index) 17.72 kg/m2 [facility] 07-30-2018 13:26-0400 Body Temperature 98.8 [degF] [facility] 07-30-2018 13:26-0400 Body weight 54.43 kg [facility]aura [facility] 07-30-2018 13:26-0400 BP Diastolic 65 mm[Hg] [facility]ida [facility] 07-30-2018 13:26-0400 BP Systolic 93 mm[Hg] [facility]ida [facility] 07-30-2018 13:26-0400 Height 175.3 cm [facility] 07-30-2018 13:26-0400 Pulse (Heart Rate) 84 /min [facility] 07-30-2018 13:26-0400 Pulse Oximetry 97 % [facility] 07-30-2018 13:26-0400 Respiratory Rate 14 /min [facility] 07-25-2018 11:39-0400 BMI (Body Mass Index) 17.63 kg/m2 [facility] 07-25-2018 11:39-0400 Body Temperature 98.29 [degF] [facility] 07-25-2018 11:39-0400 Body weight 54.16 kg [facility] 07-25-2018 11:39-0400 BP Diastolic 78 mm[Hg] [facility]ida [facility] 07-25-2018 11:39-0400 BP Systolic 113 mm[Hg] [facility] 07-25-2018 11:39-0400 Height 175.3 cm [facility] 07-25-2018 11:39-0400 Pulse (Heart Rate) 73 /min [facility] 07-25-2018 11:39-0400 Pulse Oximetry 97 % [facility] 06-01-2018 13:17-0400 Body Temperature 99 [degF] Gino [facility] 06-01-2018 13:17-0400 BP Diastolic 73 mm[Hg] [facility] 06-01-2018 13:17-0400 BP Systolic 113 mm[Hg] [facility]ino [facility] 06-01-2018 13:17-0400 Pulse (Heart Rate) 63 /min Gino [facility] 06-01-2018 13:17-0400 Pulse Oximetry 100 % Gino [facility] 06-01-2018 13:17-0400 Respiratory Rate 18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 Routine Fatigue, unspecified type Missed menses 1 Occurrences starting 01/15/2019 until 01/16/2020 [facility] Comment on above: 1 Occurrences starti ng 01/15/2019 until 01/16/2020 End: 07-26-2019 Heterophile Ab Ql (S) Mononucleosis Screen Routine Sore throat Fatigue, unspecified type 1 Occurrences starting 07/25/2018 until 07/26/2019 [facility] Comment on above: 1 Occurrences starti ng 07/25/2018 until 07/26/2019 Heterophile Ab Ql (S) Mononucleo sis Screen Routine Sore throat Fatigue, unspecified type 07/25/2018 12:16 PM EDT [facility] End: 12-07-2023 Iron and Iron binding capacity panel - Serum or Plasma Iron and TIBC Lab Routine Low iron 1 Occurrences starting 12/06/2022 until 12/07/2023 [facility] Comment on above: 1 Occurrences starti ng 12/06/2022 until 12/07/2023 Iron and Iron bindin g capacity panel - Serum or Plasma Iron and TIBC Lab Routine Low iron 12/06/2022 1:19 PM EDT [facility] End: 01-23-2019 Measurement of thyroperoxidase antibody Thyroid peroxidase antibody (TPO) Routine Fatigue, unspecified type Abnormal menses Family history of thyroid disease 1 Occurrences starting 01/23/2018 until 01/23/2019 [facility] Comment on above: 1 Occurrences starti ng 01/23/2018 until 01/23/2019 Measurement of thyroperoxidase antibody Thyroid peroxidase antibody (TPO) Routine Fatigue, unspecified type Abnormal menses Family history of thyroid disease 01/23/2018 9:52 AM EST [facility] Microscopic examinat ion of vaginal Papanicolaou smear Thinprep Pap Smear Pathology and Cytology Routine Screening for malignant neoplasm of cervix Ordered: 04/11/2023 [facility] Work Phone: Comment on above: Ordered: 04/11/2023 Microscopic examinat ion of vaginal Papanicolaou smear Thinprep Pap Smear Pathology and Cytology Routine Screening for malignant neoplasm of cervix Ordered: 06/23/2024 [facility] Work Phone: Comment on above: Ordered: 06/23/2024 Neisseria gonorrhoea e nucleic acid detection Chlamydia/Gonorrhoeae Amplified RNA Microbiology Routine Screening for STD (sexually transmitted disease) Ordered: 04/11/2023 [facility] Comment on above: Ordered: 04/11/2023 Neisseria gonorrhoea e nucleic acid detection Chlamydia/Gonorrhoeae Amplified RNA Microbiology Routine Screening for STD (sexually transmitted disease) Ordered: 06/23/2024 [facility] Comment on above: Ordered: 06/23/2024 Patient Education [facility] End: 07-02-2024 Streptococcus pyogenes [Presence] in Throat by Organism specific culture Strep A Culture, Throat Microbiology Routine Sore throat 1 Occurrences starting 07/03/2023 until 07/02/2024 [facility] Work Phone: Comment on above: 1 Occurrences starti ng 07/03/2023 until 07/02/2024 Streptococcus pyogen es [Presence] in Throat by Organism specific culture Strep A Culture, Throat Microbiology Routine Sore throat 07/03/2023 9:11 AM EDT [facility] End: 11-04-2024 T-Spot TB Screen T-Spot TB Screen Lab Routine Immunity status testing 1 Occurrences starting 11/05/2023 until 11/04/2024 [facility] Work Phone: Comment on above: 1 Occurrences starti ng 11/05/2023 until 11/04/2024 T-Spot TB Screen T-Spot TB Scree n Lab Routine Immunity status testing 11/05/2023 12:54 PM EDT [facility] End: 01-23-2019 Thyroid Stimulating Immunoglobulin Thyroid Stimulating Immunoglobulin Routine Fatigue, unspecified type Abnormal menses Family history of thyroid disease 1 Occurrences starting 01/23/2018 until 01/23/2019 [facility] Comment on above: 1 Occurrences starti ng 01/23/2018 until 01/23/2019 Thyroid Stimulating Immunoglobulin Thyroid Stimulating Immunoglobulin Routine Fatigue, unspecified type Abnormal menses Family history of thyroid disease 01/23/2018 9:52 AM EST [facility] End: 01-23-2019 Thyrotropin Qn TSH with Reflex Free T4 Routine Fatigue, unspecified type Abnormal menses 1 Occurrences starting 01/23/2018 until 01/23/2019 [facility] Comment on above: 1 Occurrences starti ng 01/23/2018 until 01/23/2019 Thyrotropin Qn [facility] End: 01-16-2020 TSH Qn TSH with Reflex Free T4 Lab Routine Fatigue, unspecified type Missed menses 1 Occurrences starting 01/15/2019 until 01/16/2020 [facility] Comment on above: 1 Occurrences starti ng 01/15/2019 until 01/16/2020 End: 04-15-2021 TSH Qn TSH with Reflex Free T4 Lab Routine Fatigue, unspecified type 1 Occurrences starting 04/15/2020 until 04/15/2021 [facility] Comment on above: 1 Occurrences starti ng 04/15/2020 until 04/15/2021 End: 07-25-2019 TSH Qn TSH with Reflex Free T4 Routine Sore throat Fatigue, unspecified type 1 Occurrences starting 07/25/2018 until 07/25/2019 [facility] Comment on above: 1 Occurrences starti ng 07/25/2018 until 07/25/2019 End: 07-31-2019 US scan of upper abdomen US Abdomen Limited Study Routine Infectious mononucleosis without complication, infectious mononucleosis due to unspecified organism 1 Occurrences starting 07/30/2018 until 07/31/2019 [facility] Comment on above: 1 Occurrences starti ng 07/30/2018 until 07/31/2019 End: 04-15-2021 Vitamin D, 25-hydroxy measurement Vitamin D, Total, 25-OH Lab Routine Fatigue, unspecified type 1 Occurrences starting 04/15/2020 until 04/15/2021 [facility] Comment on above: 1 Occurrences starti ng 04/15/2020 until 04/15/2021 End: 07-25-2019 Vitamin D, 25-hydroxy measurement Vitamin D, Total, 25-OH Routine Sore throat Fatigue, unspecified type 1 Occurrences starting 07/25/2018 until 07/25/2019 [facility] Comment on above: 1 Occurrences starti ng 07/25/2018 until 07/25/2019 Vitamin D, 25-hydrox y measurement Vitamin D, Total, 25-OH Routine Sore throat Fatigue, unspecified type 07/25/2018 12:16 PM EDT [facility] Immunizations Immunization Date Immunization Notes Care Provider Fa reba 01-08-2023 tetanus and diphther ia toxoids, adsorbed, preservative free, for adult use (2 Lf of tetanus toxoid and 2 Lf of diphtheria toxoid) Irene George DO Work Phone: [facility] 01-08-2023 tetanus toxoid, redu bia diphtheria toxoid, and acellular pertussis vaccine, adsorbed Irene George DO Work Phone: [facility] 12-27-2022 influenza virus vacc ine, unspecified formulation Irene George DO Work Phone: [facility] 09-12-2022 Acousticeye-BIONTAlfred COVI D-19 VACCINE BIVALENT BOOSTER (12+) Anabel Zuspan [employer] [facility] 09-12-2022 tuberculin skin test ; purified protein derivative solution, intradermal Anabel Zuspan [facility] 09-12-2022 COVID-19 vac, bv, Pfizer,,PF, (PFIZER COVID-10 BIVALENT VACCINE) injection Anabel Zuspan [employer] [facility] 12-29-2020 influenza, injectabl e, madin francia canine kidney, preservative free Irene Wake DO Work Phone: [facility] 12-29-2020 Influenza, injectabl e, Madin [place] Canine Kidney, preservative free, quadrivalent Irene Wake DO Work Phone: [facility] 10-18-2020 tuberculin skin test ; purified protein derivative solution, intradermal Irene George DO Work Phone: [facility] 10-11-2020 tuberculin skin test ; purified protein derivative solution, intradermal Irene George DO Work Phone: [facility] 03-15-2020 influenza virus vacc ine, unspecified formulation Aleida Dany [facility] 02-04-2020 influenza virus vacc ine, unspecified formulation Irene George DO Work Phone: [facility] 02-04-2020 influenza, injectabl e, quadrivalent, preservative free Irene Wake DO Work Phone: [facility] 12-31-2018 influenza virus vacc ine, unspecified formulation Irene George DO Work Phone: [facility] 12-31-2018 influenza, injectabl e, quadrivalent, preservative free Aleida Dany [facility] 01-23-2018 meningococcal polysa ccharide (groups A, C, Y and W-135) diphtheria toxoid conjugate vaccine (MCV4P); Translations: [MENINGOCOCCAL CONJUGATE (MENACTRA)] [facility] 01-23-2018 meningococcal vaccin e of unknown formulation and unknown serogroups; Translations: [Meningoc Vac A,C,Y,W-135 Dip (Pf) 4 McG/0.5 Ml Intramuscular Solution] [facility] 12-[facility]2017 influenza, injectabl e, madin francia canine kidney, preservative free Irene Wake DO Work Phone: [facility] 12-11-2017 Influenza, injectabl e, Madin Francia Canine Kidney, preservative free, quadrivalent Aleida Dany [facility] 05-02-2017 influenza, injectabl e, quadrivalent, preservative free Aleida Dany [facility] 01-16-2016 influenza virus vacc ine, unspecified formulation Irene George DO Work Phone: [facility] 01-16-2016 influenza, seasonal, injectable Aleida Dany [facility] 12-28-2014 influenza, live, int ranasal, quadrivalent [facility] 11-18-2014 human papilloma viru s vaccine, quadrivalent [facility] 02-23-2014 [facility] papill[facility] vir[facility] s [facility] influenza virus vacc ine, unspecified formulation Irene George DO Work Phone: [facility] 12-30-2013 influenza, seasonal, injectable, preservative free Aleida Dany [facility] 12-12-2013 human papilloma viru s vaccine, quadrivalent [facility] 12-12-2013 influenza virus vacc ine, unspecified formulation Irene George DO Work Phone: [facility] 12-12-2013 influenza, seasonal, injectable [facility] 12-25-2012 influenza, live, int ranasal, quadrivalent [facility] 12-25-2012 meningococcal polysa ccharide (groups A, C, Y and W-135) diphtheria toxoid conjugate vaccine (MCV4P) [facility] 12-25-2012 tetanus toxoid, redu bia diphtheria toxoid, and acellular pertussis vaccine, adsorbed [facility] 12-25-2012 meningococcal vaccin e of unknown formulation and unknown serogroups [facility] 01-28-2012 influenza, live, int ranasal, [facility]riv[facility] 02-23-2011 influenza, live, int ranasal, quadrivalent [facility] 12-07-2009 hepatitis A vaccine, pediatric/adolescent dosage, 2 dose schedule [facility] 12-17-2008 influenza, live, int ranasal, quadrivalent [facility] 01-25-2008 influenza, live, int ranasal, quadrivalent [facility] 04-09-2007 hepatitis A vaccine, pediatric/adolescent dosage, 2 dose schedule [facility] 10-12-2006 diphtheria, tetanus toxoids and acellular pertussis vaccine [facility] 10-12-2006 measles, mumps and r ubella virus vaccine [facility] 10-12-2006 poliovirus vaccine, inactivated [facility] 10-12-2006 poliovirus vaccine, unspecified formulation [facility] 10-12-2006 varicella virus vaccine [facility]ar [facility] 12-22-2003 influenza, live, int ranasal, quadrivalent [facility] 05-05-2003 diphtheria, tetanus toxoids and acellular pertussis vaccine [facility] 02-26-2003 influenza, live, int ranasal, quadrivalent [facility] 02-04-2003 haemophilus influenz ae type b vaccine, conjugate unspecified formulation [facility] 02-04-2003 haemophilus influenz ae type b vaccine, HbOC conjugate [facility] 02-04-2003 measles, mumps and r ubella virus vaccine [facility] 11-19-2002 poliovirus vaccine, inactivated [facility] 11-19-2002 varicella virus vaccine Ammy [facility] 11-05-2002 haemophilus influenz ae type b vaccine, conjugate unspecified formulation [facility] 08-01-2002 haemophilus influenz ae type b vaccine, conjugate unspecified formulation [facility] 08-01-2002 hepatitis B vaccine, pediatric or pediatric/adolescent dosage [facility] 06-05-2002 diphtheria, tetanus toxoids and acellular pertussis vaccine [facility] 06-05-2002 pneumococcal conjuga te vaccine, 13 valent [facility] 05-08-2002 diphtheria, tetanus toxoids and acellular pertussis vaccine, unspecified formulation [facility] 05-08-2002 haemophilus influenz ae type b vaccine, conjugate unspecified formulation [facility] 05-08-2002 pneumococcal conjuga te vaccine, 7 valent [facility] 05-08-2002 pneumococcal Conjuga te, unspecified formulation [facility] 03-03-2002 diphtheria, tetanus toxoids and acellular pertussis vaccine [facility] 03-03-2002 diphtheria, tetanus toxoids and acellular pertussis vaccine, 5 pertussis antigens [facility] 03-03-2002 haemophilus influenz ae type b conjugate and Hepatitis B vaccine [facility] 03-03-2002 haemophilus influenz ae type b vaccine, conjugate unspecified formulation [facility] 03-03-2002 hepatitis B vaccine, pediatric or pediatric/adolescent dosage [facility] 03-03-2002 pneumococcal conjuga te vaccine, 13 valent [facility] 03-03-2002 pneumococcal conjuga te vaccine, 7 valent Aleida Saenz [facility] 03-03-2002 pneumococcal Conjuga te, unspecified formulation Aleida Saenz [facility] 03-03-2002 poliovirus vaccine, inactivated [facility] 01-01-2002 diphtheria, tetanus toxoids and acellular pertussis vaccine [facility] 01-01-2002 haemophilus influenz ae type b vaccine, conjugate unspecified formulation [facility] 01-01-2002 hepatitis B vaccine, pediatric or pediatric/adolescent dosage [facility]ar [facility] 01-01-2002 pneumococcal conjuga te vaccine, 13 valent [facility] 01-01-2002 poliovirus vaccine, inactivated [facility] Payers Date Payer Category Payer Managed Care (unspecified) [id number] 2015 [facility] BRODERICK OlivierE/PREF/HMO/PPO [id number] 2015 Unknown BRODERICK GUERRIER/PREF/HMO/PPO xxxxxxxxxxxx 2015-Present [id number] 2015 Unknown [id number] 2015 Unknown [id number] 2015 Unknown [id number] 2001 Unknown [id number] 2.16.840.1.342406.3.579.2. 516 2001 Unknown [id number] 2.16.840.1.072107.3.579.2. 903 2001 Unknown [id number] 2.16.840.1.133362.3.579.2. 903 2001 Unknown [id number] 2.16.840.1.153146.3.579.2. 903 2001 Unknown [id number] 2.16.840.1.078742.3.579.2. 903 2001 Unknown [id number] 2.16.840.1.136092.3.579.2. 903 2001 Unknown [id number] 2.16.840.1.958904.3.579.2. 903 2001 Unknown [id number] 2.16.840.1.324032.3.579.2. 903 1958 Unknown [id number] 2.16.840.1.387517.3.579.2. 902 1958 Unknown [id number] 2.16.840.1.668088.3.579.2. 902 1958 Unknown [id number] 2.16.840.1.055346.3.579.2. 900 Self-pay [id number] Social History Date Type Detail Facility Start: 12-09-2016 Tobacco smoking status [facility] Unknown if ever smoked [facility] Work Phone: Start: 2000 Sex Assigned At Not on file [facility] Work Phone: Start: 12-05-2017 End: 12-06-2022 Tobacco smoking status NHIS Never smoker [facility] Start: 01-15-2019 End: 03-10-2022 Alcohol intake Current non-drinker of alcohol (finding) [facility] Exposure to SARS-CoV -2 (event) Not sure [facility] Start: 04-15-2020 End: 12-06-2022 Tobacco use and exposure Never used [facility] Start: 04-15-2020 History SDOH Social Connections Get Together 2 [facility] Start: 04-15-2020 History SDOH Financial 5 [facility] Start: 04-15-2020 History SDOH Food Worry 1 [facility] Tobacco Smoking Stat NHIS Current Some Day Smoker [facility] Start: 04-15-2020 End: 02-13-2024 History of Social function [facility] Start: 04-15-2020 End: 02-13-2024 Social connection and isolation panel [facility] Frequency of Communication with Friends and Family Not on file [facility] (I/We) worried wheth er (my/our) food would run out before (I/we) got money to buy more. Never true [facility] Start: 12-05-2017 Gender identity Identifies as female gender (finding) [facility] Start: 12-05-2017 Sexual orientation Heterosexual (finding) [facility] Start: 11-16-2017 Tobacco smoking status NHIS Smokes tobacco daily [facility] Start: 11-16-2017 History of tobacco use Cigarette Smoker [facility] Start: 09-21-2022 End: 06-23-2024 Alcohol intake Current drinker of alcohol (finding) [facility] Start: 09-21-2022 Alcohol Comment weekly [facility] Medical Equipment Procedure Code Equipment Code Equipment Original Text Equi pment Identifier Dates Procedure Implant ([id number]) Clinical Notes 11-18-2020 to 06-23-2024 Irene Vazquez DO - 06/23/2024 10:33 AM Livia Noble CNP - 02/26/2024 4:22 PM Irene Pierre - 02/13/2024 12:55 PM Katia HollinsskALEC burgess - 12/06/2022 1:19 PM EDT Note Date & Type Note Facility 06-23-2024 Note [facility] [address] [place] [address] [id number] Date: 06/23/24 Legal Name: Willow Valdez : 2000 Chief Complaint: The patient presents for Annual Exam (Here for annual well visit. Last Pap performed 04/11/23. Results were abnormal. Reports history of abnormal Pap. Would like to continue current control method. Intake form is in the chart. Denies concerns. // // ) LMP Dates from Last 1 Encounters: LMP: 03/19/2023 HPI: Here for annual exam and to discuss contraception. Likes current form of contraception. Using OCPs without irregular bleeding, worsening of depression or headaches. Takes pill consistently. No periods. No history of migraine with aura. No personal history of HTN, liver problems, blood clots. No vaginal discharge, itching, odor, pain with urination. No breast changes including changes in skin, nipple discharge or breast lumps. Recently found out that maternal aunt had terminal colon cancer. spring 2023. Doesn't know if anyone else in family has had colon cancer. at age ~75. Had hysterectomy in 40s due to uterine cancer. Had breast cancer that was surgically removed and had not spread anywhere else. No one in family has had genetic testing that she is aware of. Mom has undiagnosed schizoaffective disorder, so doesn't tend to routine medical care. Willow tries to avoid talking about these things with her. 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 No rashes, new moles or changes in skin. Has been taking sertraline consistently. Finds it helpful and would like to continue. Notices some emotional blunting but feels like it's a trade off to not be staying in bed all day. Eventually would like to decrease dose but not know when about to graduate. Higher anxiety right now due to that but otherwise has been doing pretty well. Not sure what is next. Boyfriend in [place]. May go there or [place]. Not sure. No suicidal ideation. [facility] Pattern Grader Supervisor Medical History Questionnaire 06/23/2024 9:58 AM EDT - Filed by Patient PATIENT PERSONAL INFORMATION Preferred name Is this your first gynecological examination? No Date of Last Pap Test Do you have abnormal Pap test? Yes Do you have recurrent vaginal infections? No Do you have unusual discharge/odor? No Do you have bleeding after intercourse? No Do you have pain with intercourse? No When was the first day of your most recent period? Over a year ago What form(s) of contraception do you use? mini pill and male condoms Over the past 2 weeks, how often have you been bothered by the following problems? Little interest or pleasure in doing things Not at all Feeling down, depressed or hopeless Several Days Feeling nervous, anxious or an edge Several Days Not able to stop or control worrying Not at All Is there anything specific would like to discuss with your provider today? Nope! MENSTRUAL AND CONTRACEPTION HISTORY QUESTIONS Age at onset of periods 15 How often do you get your period? Variable How many days does your period last? 2-5 How often do you need to change your pad/tampon/cup on heavy days? 2x Do you spot or bleed between periods? No Do you have pain with periods? No Do you miss school or work due to your period? No Have you had any skipped or missed periods? No Have your periods changed in the last year? No If you currently use contraception, why? Regulate Periods What forms of contraception have you used in the past? combo pill Have you used emergency contraception (Plan B, the morning after pill) in the past year? No SEXUALLY TRANSMITTED INFECTION HISTORY QUESTIONS Have you ever had herpes? No Have you ever had genital warts? No Have you ever had chlamydia/gonorrhea? No Have you ever had syphilis/hepatitis? No Have you ever had HIV (AIDS Virus)? No Have you ever had a partner who has/had an STD? No SEXUAL HISTORY QUESTIONS Have you ever been sexually involved with another person? Yes If yes, age at first encounter? 17 Who are you interested in? Both Have you ever been ? No Do you have questions or wish to discuss issues related to sexual orientation or gender identity? No Do you have questions or wish to discuss issues related to orgasm, masturbation, or how things work? No SOCIAL HISTORY QUESTIONS Have you ever been sexually abused or raped? No Have you ever felt afraid of your partner? No Has anyone ever hit, injured, threatened or tried to control you? No Do you wish to discuss issues related to rape, incest, sexual abuse, or coercion? No PAST MEDICAL HISTORY QUESTIONS Migraine Headaches No High Blood Pressure No Epilepsy/Seizures No Blood Clots No Hepatitis or Liver Problems No Diabetes No Breast Lumps/Nipple Discharge No Eating Disorder No Depression/Mood Swings Yes Asthma No Thyroid Disorder No Weight change of 10 lb. in las (more content not included)... [facility] 06-23-2024 History of Presen t illness Narrative [address] CARE AT [address] [address] Date: 06/23/24 Legal Name: Willow Valdez : 2000 Chief Complaint: The patient presents for Annual Exam (Here for annual well visit. Last Pap performed 04/11/23. Results were abnormal. Reports history of abnormal Pap. Would like to continue current control method. Intake form is in the chart. Denies concerns. // // ) LMP Dates from Last 1 Encounters: LMP: 03/19/2023 HPI: Here for annual exam and to discuss contraception. Likes current form of contraception. Using OCPs without irregular bleeding, worsening of depression or headaches. Takes pill consistently. No periods. No history of migraine with aura. No personal history of HTN, liver problems, blood clots. No vaginal discharge, itching, odor, pain with urination. No breast changes including changes in skin, nipple discharge or breast lumps. Recently found out that maternal aunt had terminal colon cancer. spring 2023. Doesn't know if anyone else in family has had colon cancer. at age ~75. Had hysterectomy in 40s due to uterine cancer. Had breast cancer that was surgically removed and had not spread anywhere else. No one in family has had genetic testing that she is aware of. Mom has undiagnosed schizoaffective disorder, so doesn't tend to routine medical care. Willow tries to avoid talking about these things with her. 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 No rashes, new moles or changes in skin. Has been taking sertraline consistently. Finds it helpful and would like to continue. Notices some emotional blunting but feels like it's a trade off to not be staying in bed all day. Eventually would like to decrease dose but not know when about to graduate. Higher anxiety right now due to that but otherwise has been doing pretty well. Not sure what is next. Boyfriend in [place]. May go there or [place]. Not sure. No suicidal ideation. [facility] Pattern Grader Supervisor Medical History Questionnaire 06/23/2024 9:58 AM EDT - Filed by Patient PATIENT PERSONAL INFORMATION Preferred name Is this your first gynecological examination? No Date of Last Pap Test Do you have abnormal Pap test? Yes Do you have recurrent vaginal infections? No Do you have unusual discharge/odor? No Do you have bleeding after intercourse? No Do you have pain with intercourse? No When was the first day of your most recent period? Over a year ago What form(s) of contraception do you use? mini pill and male condoms Over the past 2 weeks, how often have you been bothered by the following problems? Little interest or pleasure in doing things Not at all Feeling down, depressed or hopeless Several Days Feeling nervous, anxious or an edge Several Days Not able to stop or control worrying Not at All Is there anything specific would like to discuss with your provider today? Nope! MENSTRUAL AND CONTRACEPTION HISTORY QUESTIONS Age at onset of periods 15 How often do you get your period? Variable How many days does your period last? 2-5 How often do you need to change your pad/tampon/cup on heavy days? 2x Do you spot or bleed between periods? No Do you have pain with periods? No Do you miss school or work due to your period? No Have you had any skipped or missed periods? No Have your periods changed in the last year? No If you currently use contraception, why? Regulate Periods What forms of contraception have you used in the past? combo pill Have you used emergency contraception (Plan B, the morning after pill) in the past year? No SEXUALLY TRANSMITTED INFECTION HISTORY QUESTIONS Have you ever had herpes? No Have you ever had genital warts? No Have you ever had chlamydia/gonorrhea? No Have you ever had syphilis/hepatitis? No Have you ever had HIV (AIDS Virus)? No Have you ever had a partner who has/had an STD? No SEXUAL HISTORY QUESTIONS Have you ever been sexually involved with another person? Yes If yes, age at first encounter? 17 Who are you interested in? Both Have you ever been ? No Do you have questions or wish to discuss issues related to sexual orientation or gender identity? No Do you have questions or wish to discuss issues related to orgasm, masturbation, or how things work? No SOCIAL HISTORY QUESTIONS Have you ever been sexually abused or raped? No Have you ever felt afraid of your partner? No Has anyone ever hit, injured, threatened or tried to control you? No Do you wish to discuss issues related to rape, incest, sexual abuse, or coercion? No PAST MEDICAL HISTORY QUESTIONS Migraine Headaches No High Blood Pressure No Epilepsy/Seizures No Blood Clots No Hepatitis or Liver Problems No Diabetes No Breast Lumps/Nipple Discharge No Eating Disorder No Depression/Mood Swings Yes Asthma No Thyroid Disorder No Weight change of 10 lb. in last year No Painful Urination/Urinary Tract Infection (UTI) Recently Do you have any medical problems not listed above? No Has any close relative (parent, sibling, grandparent) had Blood Clots No Stroke Yes Please specify relation to you grandmother; not confirmed Autoimmune disease (Crohn's, Lupus, Rheumatoid Arthritis) No Breast, Colon, Uterine, or Ovarian Cancer Yes Please specify which type and who in your family breast, colon, uterine - maternal aunt; cervical - mom Sexual and social history updated. Medical intake form reviewed with patient. The following portions of the patient's history were reviewed and updated as appropriate: allergies, current medications, past family history, past medical history, past social history, past surgical history and problem list. Outpatient Medications as of 06/23/2024 Medication Sig cetirizine (ZYRTEC) 10 MG tablet Take 1 (one) tablet (10 mg total) by mouth daily . clindamycin (CLEOCIN T) 1 % lotion APPLY TO AFFECTED AREA ON THE BACK ONCE DAILY multivitamin capsule Take 1 (one) capsule by mouth . norethindrone (MICRONOR) 0.35 mg tablet Take 1 (one) tablet (0.35 mg total) by mouth daily . sertraline (ZOLOFT) 50 MG tablet Take 1 (one) tablet (50 mg total) by mouth daily ; Diagnosis code f41.9 . [DISCONTINUED] fluconazole (DIFLUCAN) 150 MG tablet Take 1 tab po x 1, may repeat in 3 days if needed . Objective: BP 119/71 (BP Location: Left arm, Patient Position: Sitting, BP Cuff Size: Youth) Pulse 79 Temp 98.4 F (36.9 C) (Infrared) Resp 16 Ht 5' 7.5 Wt 52.3 kg (115 lb 6.4 oz) LMP (LMP Unknown) Comment: takes ocp continuously SpO2 98% BMI 17.81 kg/m Physical Exam Vitals reviewed. Exam conducted with a tire design engineer present. Constitutional: General: She is awake. Appearance: Normal appearance. She is well-developed. HENT: Head: Normocephalic and atraumatic. Eyes: General: No scleral icterus. Right eye: No discharge. Left eye: No discharge. Conjunctiva/sclera: Conjunctivae normal. Right eye: Right conjunctiva is not injected. Left eye: Left conjunctiva is not injected. Pulmonary: Effort: Pulmonary effort is normal. Abdominal: Palpations: Abdomen is soft. There is no hepatomegaly, splenomegaly or mass. Tenderness: There is no abdominal tenderness. Genitourinary: General: Normal vulva. Exam position: Lithotomy position. Pubic Area: No rash. Labia: Right: No rash or lesion. Left: No rash or lesion. Vagina: No vaginal discharge, erythema or lesions. Cervix: No cervical motion tenderness, discharge, friability or lesion. Uterus: Not tender. Adnexa: Right: No mass or tenderness. Left: No mass or tenderness. Musculoskeletal: Right lower leg: No edema. Left lower leg: No edema. Skin: General: Skin is warm and dry. Neurological: General: No focal deficit present. Mental Status: She is alert and oriented to person, place, and time. Psychiatric: Mood and Affect: Mood normal. Behavior: Behavior normal. Behavior is cooperative. Assessment/Plan: 1. Annual physical exam (Primary) 2. Screening for malignant neoplasm of cervix - Thinprep Pap Smear 3. Screening for STD (sexually transmitted disease) - Chlamydia/Gonorrhoeae Amplified RNA 4. Contraceptive education - norethindrone (MICRONOR) 0.35 mg tablet; Take 1 (one) tablet (0.35 mg total) by mouth daily . Dispense: 84 tablet; Refill: 4 5. Family history of colon cancer - Ambulatory referral to Genetics-Adult; Future 6. Family history of breast cancer - Ambulatory referral to Genetics-Adult; Future 7. Family history of uterine cancer - Ambulatory referral to Genetics-Adult; Future 8. Anxiety - sertraline (ZOLOFT) 50 MG tablet; Take 1 (one) tablet (50 mg total) by mouth daily ; Diagnosis code F41.9 . Dispense: 90 tablet; Refill: 1 9. LGSIL on Pap smear of cervix Patient Instructions: Continue current control pills. Refilled sertraline to last for 6 months while she is figuring out where she will be living next and getting established with a new provider. She is aware that if she is interested in decreasing the dose in the future she could cut the pill in half. Discussed STI testing recommendations based on age and practices. Discussed option for consultation with genetic counselor based on aunts history of uterine, breast, and colon cancer over the span of approximately 30 years. Will establish with new provider for annual exam in 1 year. Irene Vazquez DO documented in this encounter [facility] 02-26-2024 Note PATIENT NAME: Macrina Valdez [facility] [address] [place] [id number] : 2000 DATE OF VISIT: 02/26/2024 #: [id number] PROVIDER: Livia Freeman CNP Chief Complaint Patient presents with Dysuria Pt c/o discomfort with urination, bladder pressure, and cloudy urine x 2 days. No meds taken. SUBJECTIVE 23 y.o. female presents Dysuria (Pt c/o discomfort with urination, bladder pressure, and cloudy urine x 2 days. No meds taken.) discomfort with urination, bladder pressure, and cloudy urine x 2 days. No meds taken Dysuria This is a recurrent problem. The problem occurs every urination. The quality of the pain is described as burning. The pain is at a severity of 0/10. The pain is moderate. There has been no fever. There is A history of pyelonephritis. Associated symptoms include frequency. Pertinent negatives include no chills, discharge, flank pain, hematuria, hesitancy, nausea, possible , sweats, urgency or vomiting. She has tried nothing for the symptoms. Her past medical history is significant for recurrent UTIs. MEDICAL ISSUES Past Medical History: Diagnosis Date Allergic Anxiety Concussion Depression Fibroids History of MRSA infection 04/2023 UTI (urinary tract infection) Patient Active Problem List Diagnosis Family history of thyroid disease Anxiety Depression Uterine leiomyoma SOCIAL HISTORY Social History Socioeconomic History Marital status: Single Tobacco Use Smoking status: Never Smokeless tobacco: Never Vaping Use Vaping status: Some Days Substances: Nicotine, Flavoring Devices: Disposable Substance and Sexual Activity Alcohol use: Yes Alcohol/week: 4.0 standard drinks of alcohol Types: 4 Shots of liquor per week Comment: weekly Drug use: Yes Types: Marijuana Comment: occassionally Sexual activity: Not Currently Partners: Male control/protection: Condom, OCP Social Drivers of Health Financial Resource Strain: Low Risk (04/15/2020) Overall Financial Resource Strain (CARDIA) Difficulty of Paying Living Expenses: Not hard at all Food Insecurity: No Food Insecurity (04/15/2020) Hunger Vital Sign Worried About Running Out of Food in the Last Year: Never true Ran Out of Food in the Last Year: Never true Transportation Needs: No Transportation Needs (04/15/2020) PRAPARE - Transportation Lack of Transportation (Medical): No Lack of Transportation (Non-Medical): No Social Connections: Unknown (04/15/2020) Social Connection and Isolation Panel [NHANES] Frequency of Social Gatherings with Friends and Family: Once a week FAMILY HISTORY Family History Problem Relation Age of Onset Cancer Mother cervical Fibroids Mother Depression Mother Heart attack Father 57 Thyroid disease Father hypothyroidism Arrhythmia Father bundle branch block Depression Father Fibroids Maternal Grandmother Alzheimer's disease Maternal Grandmother Atrial fibrillation Maternal Grandmother Cancer Maternal Grandfather pancreatic Heart disease Maternal Grandfather Prostate cancer Maternal Grandfather Heart failure Paternal Grandmother Cancer Paternal Grandfather Prostate cancer Paternal Grandfather Thyroid disease Brother hyperthryoidism Asthma Brother (adolescent) in remission Breast cancer Other Colon cancer Other REVIEW OF SYSTEMS Review of Systems Constitutional: Negative for activity change, appetite change, chills, diaphoresis, fatigue, fever and unexpected weight change. HENT: Negative for sore throat. Respiratory: Negative for cough. Cardiovascular: Negative for chest pain. Gastrointestinal: Negative for abdominal pain, diarrhea, nausea and vomiting. Genitourinary: Positive for dysuria and frequency. Negative for enuresis, flank pain, genital sores, hematuria, hesitancy, menstrual problem, pelvic pain, urgency, vaginal bleeding, vaginal discharge and vaginal pain. Musculoskeletal: Negative for back pain, myalgias, neck pain and neck stiffness. Skin: Negative for rash. Neurological: Negative for headaches. All other systems reviewed and are negative. MEDICATIONS PRIOR TO VISIT Current Outpatient Medications on File Prior to Visit Medication Sig Dispense Refill cetirizine (ZYRTEC) 10 MG tablet Take 1 (one) tablet (10 mg total) by mouth daily . 30 tablet 2 clindamycin (CLEOCIN T) 1 % lotion APPLY TO AFFECTED AREA ON THE BACK ONCE DAILY multivitamin capsule Take 1 (one) capsule by mouth . norethindrone (MICRONOR) 0.35 mg tablet Take 1 (one) tablet (0.35 mg total) by mouth daily . 84 tablet 4 sertraline (ZOLOFT) 50 MG tablet Take 1 (one) tablet (50 mg total) by mouth daily . 90 tablet 1 No current facility-administered medications on file prior to visit. ALLERGIES/INTOLERANCES Allergies Allergen Reactions Amoxicillin Diarrhea Augmentin [Amoxicillin-Pot Clavulanate] GI Intolerance OBJECTIVE BP 110/73 (BP (more content not included)... [facility] 02-26-2024 History of Presen t illness Narrative PATIENT NAME: Willow Valdez [facility] [address] [id number] : 2000 DATE OF VISIT: 02/26/2024 #: [id number] PROVIDER: Livia Freeman CNP Chief Complaint Patient presents with Dysuria Pt c/o discomfort with urination, bladder pressure, and cloudy urine x 2 days. No meds taken. SUBJECTIVE 23 y.o. female presents Dysuria (Pt c/o discomfort with urination, bladder pressure, and cloudy urine x 2 days. No meds taken.) discomfort with urination, bladder pressure, and cloudy urine x 2 days. No meds taken Dysuria This is a recurrent problem. The problem occurs every urination. The quality of the pain is described as burning. The pain is at a severity of 0/10. The pain is moderate. There has been no fever. There is A history of pyelonephritis. Associated symptoms include frequency. Pertinent negatives include no chills, discharge, flank pain, hematuria, hesitancy, nausea, possible , sweats, urgency or vomiting. She has tried nothing for the symptoms. Her past medical history is significant for recurrent UTIs. MEDICAL ISSUES Past Medical History: Diagnosis Date Allergic Anxiety Concussion Depression Fibroids History of MRSA infection 04/2023 UTI (urinary tract infection) Patient Active Problem List Diagnosis Family history of thyroid disease Anxiety Depression Uterine leiomyoma SOCIAL HISTORY Social History Socioeconomic History Marital status: Single Tobacco Use Smoking status: Never Smokeless tobacco: Never Vaping Use Vaping status: Some Days Substances: Nicotine, Flavoring Devices: Disposable Substance and Sexual Activity Alcohol use: Yes Alcohol/week: 4.0 standard drinks of alcohol Types: 4 Shots of liquor per week Comment: weekly Drug use: Yes Types: Marijuana Comment: occassionally Sexual activity: Not Currently Partners: Male control/protection: Condom, OCP Social Drivers of Health Financial Resource Strain: Low Risk (04/15/2020) Overall Financial Resource Strain (CARDIA) Difficulty of Paying Living Expenses: Not hard at all Food Insecurity: No Food Insecurity (04/15/2020) Hunger Vital Sign Worried About Running Out of Food in the Last Year: Never true Ran Out of Food in the Last Year: Never true Transportation Needs: No Transportation Needs (04/15/2020) PRAPARE - Transportation Lack of Transportation (Medical): No Lack of Transportation (Non-Medical): No Social Connections: Unknown (04/15/2020) Social Connection and Isolation Panel [NHANES] Frequency of Social Gatherings with Friends and Family: Once a week FAMILY HISTORY Family History Problem Relation Age of Onset Cancer Mother cervical Fibroids Mother Depression Mother Heart attack Father 57 Thyroid disease Father hypothyroidism Arrhythmia Father bundle branch block Depression Father Fibroids Maternal Grandmother Alzheimer's disease Maternal Grandmother Atrial fibrillation Maternal Grandmother Cancer Maternal Grandfather pancreatic Heart disease Maternal Grandfather Prostate cancer Maternal Grandfather Heart failure Paternal Grandmother Cancer Paternal Grandfather Prostate cancer Paternal Grandfather Thyroid disease Brother hyperthryoidism Asthma Brother (adolescent) in remission Breast cancer Other Colon cancer Other REVIEW OF SYSTEMS Review of Systems Constitutional: Negative for activity change, appetite change, chills, diaphoresis, fatigue, fever and unexpected weight change. HENT: Negative for sore throat. Respiratory: Negative for cough. Cardiovascular: Negative for chest pain. Gastrointestinal: Negative for abdominal pain, diarrhea, nausea and vomiting. Genitourinary: Positive for dysuria and frequency. Negative for enuresis, flank pain, genital sores, hematuria, hesitancy, menstrual problem, pelvic pain, urgency, vaginal bleeding, vaginal discharge and vaginal pain. Musculoskeletal: Negative for back pain, myalgias, neck pain and neck stiffness. Skin: Negative for rash. Neurological: Negative for headaches. All other systems reviewed and are negative. MEDICATIONS PRIOR TO VISIT Current Outpatient Medications on File Prior to Visit Medication Sig Dispense Refill cetirizine (ZYRTEC) 10 MG tablet Take 1 (one) tablet (10 mg total) by mouth daily . 30 tablet 2 clindamycin (CLEOCIN T) 1 % lotion APPLY TO AFFECTED AREA ON THE BACK ONCE DAILY multivitamin capsule Take 1 (one) capsule by mouth . norethindrone (MICRONOR) 0.35 mg tablet Take 1 (one) tablet (0.35 mg total) by mouth daily . 84 tablet 4 sertraline (ZOLOFT) 50 MG tablet Take 1 (one) tablet (50 mg total) by mouth daily . 90 tablet 1 No current facility-administered medications on file prior to visit. ALLERGIES/INTOLERANCES Allergies Allergen Reactions Amoxicillin Diarrhea Augmentin [Amoxicillin-Pot Clavulanate] GI Intolerance OBJECTIVE BP 110/73 (BP Location: Right arm, Patient Position: Sitting, BP Cuff Size: Adult) Pulse 94 Temp 98.6 F (37 C) (Oral) LMP (LMP Unknown) Comment: takes ocp continuously SpO2 99% Physical Exam Vitals and nursing note reviewed. Constitutional: General: She is not in acute distress. Appearance: Normal appearance. She is normal weight. She is not ill-appearing, toxic-appearing or diaphoretic. HENT: Head: Normocephalic and atraumatic. Pulmonary: Effort: Pulmonary effort is normal. Abdominal: General: Abdomen is flat. Bowel sounds are normal. There is no distension. Palpations: Abdomen is soft. Tenderness: There is no abdominal tenderness. There is no right CVA tenderness, left CVA tenderness, guarding or rebound. Musculoskeletal: Cervical back: Normal range of motion and neck supple. Skin: General: Skin is warm and dry. Neurological: General: No focal deficit present. Mental Status: She is alert and oriented to person, place, and time. Cranial Nerves: No cranial nerve deficit. Motor: No weakness. Gait: Gait normal. Psychiatric: Mood and Affect: Mood normal. Behavior: Behavior normal. PROCEDURE Procedures Results Recent Results (from the past week) POC Urinalysis Dipstick,Auto UC Collection Time: 02/26/24 4:32 PM Result Value Ref Range POC Color, Urine Yellow Yellow, Light Yellow, Dark Yellow Clarity, UA Clear Clear Glucose, UA Negative Normal, Negative mg/dL Bilirubin, UA Negative Negative Ketones, UA Negative Negative mg/dL Spec Grav, UA 1.025 1.005 - 1.025 Blood, UA Negative Negative pH, UA 5.5 5.0 - 7.0 Protein, UA 100 (A) Negative mg/dL Urobilinogen, UA 0.2 <2.0, 0.2, Normal, Negative, 1.0, 2.0, <1.0 mg/dL Nitrite, UA Negative Negative Leukocyte Esterase, UA Negative Negative ASSESSMENT/PLAN (expressed as patient instructions): 1. Dysuria-frequency syndrome nitrofurantoin, macrocrystal-monohydrate, (Macrobid) 100 MG capsule fluconazole (DIFLUCAN) 150 MG tablet 2. Dysuria POC Urinalysis Dipstick,Auto UC Urine culture No follow-ups on file. MDM Section ORDERS PLACED THIS VISIT Orders Placed This Encounter Procedures Urine culture POC Urinalysis Dipstick,Auto UC MEDICATION LIST AT END OF VISIT Current Outpatient Medications Medication Sig Dispense Refill cetirizine (ZYRTEC) 10 MG tablet Take 1 (one) tablet (10 mg total) by mouth daily . 30 tablet 2 clindamycin (CLEOCIN T) 1 % lotion APPLY TO AFFECTED AREA ON THE BACK ONCE DAILY multivitamin capsule Take 1 (one) capsule by mouth . norethindrone (MICRONOR) 0.35 mg tablet Take 1 (one) tablet (0.35 mg total) by mouth daily . 84 tablet 4 sertraline (ZOLOFT) 50 MG tablet Take 1 (one) tablet (50 mg total) by mouth daily . 90 tablet 1 fluconazole (DIFLUCAN) 150 MG tablet Take 1 tab po x 1, may repeat in 3 days if needed . 2 tablet 1 nitrofurantoin, macrocrystal-monohydrate, (Macrobid) 100 MG capsule Take 1 (one) capsule (100 mg total) by mouth 2 (two) times a day for 7 days . 14 capsule 0 No current facility-administered medications for this visit. documented in this encounter [facility] 02-13-2024 Note [facility] [address] [place] [address] [id number] DATE OF ENCOUNTER: 02/13/24 Legal Name: Willow Valdez Date of : 2000 (23 y.o. female) Chief Complaint: The patient presents for Follow-up (Here to follow-up on anxiety. Last seen regarding this problem on 07/24/23. Medication(s) continued at that time. Currently taking sertraline 50 mg daily. Denies concerns. ) HPI: Things have been going pretty well. Finally done with clinicals forever. Just has preceptorship. Has not been stressed. Not much to report. Anxiety is pretty manageable. Still feels it in social situations mostly. Going to the grocery for example. Just gets a little nervous but can still go. Same with depressive symptoms. Fine for a month and then symptoms only for a few days. Usually clearly related to something such as doing poorly on a test, for example. Sleep is fine. Not napping as much. On consistent schedule this year because she's had to be for clinicals. Appetite is pretty good. Eating 3 meals a day. Snacks between. Sometimes forgets if studying a bunch but then feels hungry and goes to eat. The following portions of the patient's history were reviewed and updated as appropriate: allergies, current medications, past family history, past medical history, past social history, past surgical history and problem list. Outpatient Medications as of 02/13/2024 Medication Sig cetirizine (ZYRTEC) 10 MG tablet Take 1 (one) tablet (10 mg total) by mouth daily . clindamycin (CLEOCIN T) 1 % lotion APPLY TO AFFECTED AREA ON THE BACK ONCE DAILY multivitamin capsule Take 1 (one) capsule by mouth . norethindrone (MICRONOR) 0.35 mg tablet Take 1 (one) tablet (0.35 mg total) by mouth daily . sertraline (ZOLOFT) 50 MG tablet Take 1 (one) tablet (50 mg total) by mouth daily . Objective: BP 120/77 (BP Location: Right arm, Patient Position: Sitting, BP Cuff Size: Youth) Pulse 90 Temp 99.8 degrees F (37.7 degrees C) (Infrared) Resp 16 Ht 5' 7.5 Wt 53.3 kg (117 lb 9.6 oz) LMP (LMP Unknown) Comment: takes ocp continuously SpO2 97% BMI 18.15 kg/m Physical Exam Constitutional: Oriented to person, place, and time and well-developed, well-nourished, and in no distress. Head: Normocephalic and atraumatic. Eyes: No scleral icterus. No periorbital edema. No discharge. Respiratory: No respiratory distress. No use of accessory muscles. Neurological: Cranial nerves 2-12 grossly intact. Normal gross movement of extremities. Normal gait. Psychiatric: Mood and affect normal. Assessment/Plan: 1. Anxiety - sertraline (ZOLOFT) 50 MG tablet; Take 1 (one) tablet (50 mg total) by mouth daily . Dispense: 90 tablet; Refill: 1 Patient Instructions: Graduating in July. Follow up prior to leaving [place] so she has refills to last while she is establishing with new provider. Due for annual exam Mar 2024. My ongoing relationship with this patient requires continued responsibility and cognitive effort of being the focal point for all services related to chronic condition(s). Irene Vazquez DO AUTHENTICATED BY IRENE VAZQUEZ, ON 02/13/2024 13:03:06 [facility] 02-13-2024 History of Presen t illness Narrative [address] CARE AT [address] [id number] DATE OF ENCOUNTER: 02/13/24 Legal Name: Willow Valdez Date of : 2000 (23 y.o. female) Chief Complaint: The patient presents for Follow-up (Here to follow-up on anxiety. Last seen regarding this problem on 07/24/23. Medication(s) continued at that time. Currently taking sertraline 50 mg daily. Denies concerns. ) HPI: Things have been going pretty well. Finally done with clinicals forever. Just has preceptorship. Has not been stressed. Not much to report. Anxiety is pretty manageable. Still feels it in social situations mostly. Going to the grocery for example. Just gets a little nervous but can still go. Same with depressive symptoms. Fine for a month and then symptoms only for a few days. Usually clearly related to something such as doing poorly on a test, for example. Sleep is fine. Not napping as much. On consistent schedule this year because she's had to be for clinicals. Appetite is pretty good. Eating 3 meals a day. Snacks between. Sometimes forgets if studying a bunch but then feels hungry and goes to eat. The following portions of the patient's history were reviewed and updated as appropriate: allergies, current medications, past family history, past medical history, past social history, past surgical history and problem list. Outpatient Medications as of 02/13/2024 Medication Sig cetirizine (ZYRTEC) 10 MG tablet Take 1 (one) tablet (10 mg total) by mouth daily . clindamycin (CLEOCIN T) 1 % lotion APPLY TO AFFECTED AREA ON THE BACK ONCE DAILY multivitamin capsule Take 1 (one) capsule by mouth . norethindrone (MICRONOR) 0.35 mg tablet Take 1 (one) tablet (0.35 mg total) by mouth daily . sertraline (ZOLOFT) 50 MG tablet Take 1 (one) tablet (50 mg total) by mouth daily . Objective: BP 120/77 (BP Location: Right arm, Patient Position: Sitting, BP Cuff Size: Youth) Pulse 90 Temp 99.8 F (37.7 C) (Infrared) Resp 16 Ht 5' 7.5 Wt 53.3 kg (117 lb 9.6 oz) LMP (LMP Unknown) Comment: takes ocp continuously SpO2 97% BMI 18.15 kg/m Physical Exam Constitutional: Oriented to person, place, and time and well-developed, well-nourished, and in no distress. Head: Normocephalic and atraumatic. Eyes: No scleral icterus. No periorbital edema. No discharge. Respiratory: No respiratory distress. No use of accessory muscles. Neurological: Cranial nerves 2-12 grossly intact. Normal gross movement of extremities. Normal gait. Psychiatric: Mood and affect normal. Assessment/Plan: 1. Anxiety - sertraline (ZOLOFT) 50 MG tablet; Take 1 (one) tablet (50 mg total) by mouth daily . Dispense: 90 tablet; Refill: 1 Patient Instructions: Graduating in July. Follow up prior to leaving [place] so she has refills to last while she is establishing with new provider. Due for annual exam Mar 2024. My ongoing relationship with this patient requires continued responsibility and cognitive effort of being the focal point for all services related to chronic condition(s). Irene Vazquez DO documented in this encounter [facility] 11-22-2023 Note PATIENT NAME: Macrina Valdez [facility] Care [address] [place] [address] [facility] [id number] : 2000 DATE OF VISIT: 11/22/2023 #: [id number] PROVIDER: Cassandra Ley CNP Chief Complaint Patient presents with Nasal Congestion Pt c/o nasal congestion x 2 days, chills. She took a pos covid test last night. 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 She took a mucinex DM last night. SUBJECTIVE 23 y.o. female presents Nasal Congestion (Pt c/o nasal congestion x 2 days, chills. She took a pos covid test last night. 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 She took a mucinex DM last night. 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 The current episode started in the past 7 days. The problem has been waxing and waning. Maximum temperature: unmeasured. Associated symptoms include congestion, headaches, nausea, a plugged ear sensation, sinus pain and a sore throat. Pertinent negatives include no abdominal pain, chest pain, coughing, diarrhea, dysuria, ear pain, joint pain, joint swelling, neck pain, rash, rhinorrhea, sneezing, swollen glands, vomiting or wheezing. She has tried decongestant for the symptoms. The treatment provided mild relief. MEDICAL ISSUES Past Medical History: Diagnosis Date Allergic Anxiety Concussion Depression Fibroids History of MRSA infection 04/2023 UTI (urinary tract infection) Patient Active Problem List Diagnosis Family history of thyroid disease Anxiety Depression Uterine leiomyoma SOCIAL HISTORY Social History Socioeconomic History Marital status: Single Tobacco Use Smoking status: Never Smokeless tobacco: Never Vaping Use Vaping status: Some Days Substances: Nicotine, Flavoring Devices: Disposable Substance and Sexual Activity Alcohol use: Yes Alcohol/week: 4.0 standard drinks of alcohol Types: 4 Shots of liquor per week Comment: weekly Drug use: Yes Types: Marijuana Comment: occassionally Sexual activity: Not Currently Partners: Male control/protection: Condom, OCP Social Determinants of Health Financial Resource Strain: Low Risk (04/15/2020) Overall Financial Resource Strain (CARDIA) Difficulty of Paying Living Expenses: Not hard at all Food Insecurity: No Food Insecurity (04/15/2020) Hunger Vital Sign Worried About Running Out of Food in the Last Year: Never true Ran Out of Food in the Last Year: Never true Transportation Needs: No Transportation Needs (04/15/2020) PRAPARE - Transportation Lack of Transportation (Medical): No Lack of Transportation (Non-Medical): No Social Connections: Unknown (04/15/2020) Social Connection and Isolation Panel [NHANES] Frequency of Social Gatherings with Friends and Family: Once a week FAMILY HISTORY Family History Problem Relation Age of Onset Cancer Mother cervical Fibroids Mother Depression Mother Heart attack Father 57 Thyroid disease Father hypothyroidism Arrhythmia Father bundle branch block Depression Father Fibroids Maternal Grandmother Alzheimer's disease Maternal Grandmother Atrial fibrillation Maternal Grandmother Cancer Maternal Grandfather pancreatic Heart disease Maternal Grandfather Prostate cancer Maternal Grandfather Heart failure Paternal Grandmother Cancer Paternal Grandfather Prostate cancer Paternal Grandfather Thyroid disease Brother hyperthryoidism Asthma Brother (adolescent) in remission Breast cancer Other Colon cancer Other REVIEW OF SYSTEMS Review of Systems Constitutional: Negative for chills, fatigue and fever. HENT: Positive for congestion, sinus pain and sore throat. Negative for ear pain, rhinorrhea and sneezing. Respiratory: Negative for cough, shortness of breath and wheezing. Cardiovascular: Negative for chest pain and palpitations. Gastrointestinal: Positive for nausea. Negative for abdominal pain, constipation, diarrhea and vomiting. Genitourinary: Negative for dysuria. Musculoskeletal: Negative for arthralgias, joint pain, myalgias and neck pain. Skin: Negative for rash. Neurological: Positive for headaches. Negative for dizziness. Psychiatric/Behavioral: Negative for confusion. MEDICATIONS PRIOR TO VISIT Current Outpatient Medications on File Prior to Visit Medication Sig Dispense Refill cetirizine (ZYRTEC) 10 MG tablet Take 1 (one) tablet (10 mg total) by mouth daily . 30 tablet 2 multivitamin capsule Take 1 (one) capsule by mouth . norethindrone (MICRONOR) 0.35 mg tablet Take 1 (one) tablet (0.35 mg total) by mouth daily . 84 tablet 4 sertraline (ZOLOFT) 50 MG tablet Take 1 (one) tablet (50 mg total) by mouth daily . 90 tablet 1 clindamycin (CLEOCIN T) 1 % lotion APPLY TO AFFECTED AREA ON THE BACK ONCE DAILY [DISCONTINUED] albuterol 90 mcg/actuat (more content not included)... [facility] 11-22-2023 History of Presen t illness Narrative PATIENT NAME: Willow Valdez [facility] [address] [address] : 2000 DATE OF VISIT: 11/22/2023 #: [id number] PROVIDER: Cassandra Ley CNP Chief Complaint Patient presents with Nasal Congestion Pt c/o nasal congestion x 2 days, chills. She took a pos covid test last night. 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 She took a mucinex DM last night. SUBJECTIVE 23 y.o. female presents Nasal Congestion (Pt c/o nasal congestion x 2 days, chills. She took a pos covid test last night. 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 She took a mucinex DM last night. 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 The current episode started in the past 7 days. The problem has been waxing and waning. Maximum temperature: unmeasured. Associated symptoms include congestion, headaches, nausea, a plugged ear sensation, sinus pain and a sore throat. Pertinent negatives include no abdominal pain, chest pain, coughing, diarrhea, dysuria, ear pain, joint pain, joint swelling, neck pain, rash, rhinorrhea, sneezing, swollen glands, vomiting or wheezing. She has tried decongestant for the symptoms. The treatment provided mild relief. MEDICAL ISSUES Past Medical History: Diagnosis Date Allergic Anxiety Concussion Depression Fibroids History of MRSA infection 04/2023 UTI (urinary tract infection) Patient Active Problem List Diagnosis Family history of thyroid disease Anxiety Depression Uterine leiomyoma SOCIAL HISTORY Social History Socioeconomic History Marital status: Single Tobacco Use Smoking status: Never Smokeless tobacco: Never Vaping Use Vaping status: Some Days Substances: Nicotine, Flavoring Devices: Disposable Substance and Sexual Activity Alcohol use: Yes Alcohol/week: 4.0 standard drinks of alcohol Types: 4 Shots of liquor per week Comment: weekly Drug use: Yes Types: Marijuana Comment: occassionally Sexual activity: Not Currently Partners: Male control/protection: Condom, OCP Social Determinants of Health Financial Resource Strain: Low Risk (04/15/2020) Overall Financial Resource Strain (CARDIA) Difficulty of Paying Living Expenses: Not hard at all Food Insecurity: No Food Insecurity (04/15/2020) Hunger Vital Sign Worried About Running Out of Food in the Last Year: Never true Ran Out of Food in the Last Year: Never true Transportation Needs: No Transportation Needs (04/15/2020) PRAPARE - Transportation Lack of Transportation (Medical): No Lack of Transportation (Non-Medical): No Social Connections: Unknown (04/15/2020) Social Connection and Isolation Panel [NHANES] Frequency of Social Gatherings with Friends and Family: Once a week FAMILY HISTORY Family History Problem Relation Age of Onset Cancer Mother cervical Fibroids Mother Depression Mother Heart attack Father 57 Thyroid disease Father hypothyroidism Arrhythmia Father bundle branch block Depression Father Fibroids Maternal Grandmother Alzheimer's disease Maternal Grandmother Atrial fibrillation Maternal Grandmother Cancer Maternal Grandfather pancreatic Heart disease Maternal Grandfather Prostate cancer Maternal Grandfather Heart failure Paternal Grandmother Cancer Paternal Grandfather Prostate cancer Paternal Grandfather Thyroid disease Brother hyperthryoidism Asthma Brother (adolescent) in remission Breast cancer Other Colon cancer Other REVIEW OF SYSTEMS Review of Systems Constitutional: Negative for chills, fatigue and fever. HENT: Positive for congestion, sinus pain and sore throat. Negative for ear pain, rhinorrhea and sneezing. Respiratory: Negative for cough, shortness of breath and wheezing. Cardiovascular: Negative for chest pain and palpitations. Gastrointestinal: Positive for nausea. Negative for abdominal pain, constipation, diarrhea and vomiting. Genitourinary: Negative for dysuria. Musculoskeletal: Negative for arthralgias, joint pain, myalgias and neck pain. Skin: Negative for rash. Neurological: Positive for headaches. Negative for dizziness. Psychiatric/Behavioral: Negative for confusion. MEDICATIONS PRIOR TO VISIT Current Outpatient Medications on File Prior to Visit Medication Sig Dispense Refill cetirizine (ZYRTEC) 10 MG tablet Take 1 (one) tablet (10 mg total) by mouth daily . 30 tablet 2 multivitamin capsule Take 1 (one) capsule by mouth . norethindrone (MICRONOR) 0.35 mg tablet Take 1 (one) tablet (0.35 mg total) by mouth daily . 84 tablet 4 sertraline (ZOLOFT) 50 MG tablet Take 1 (one) tablet (50 mg total) by mouth daily . 90 tablet 1 clindamycin (CLEOCIN T) 1 % lotion APPLY TO AFFECTED AREA ON THE BACK ONCE DAILY [DISCONTINUED] albuterol 90 mcg/actuation inhaler Inhale 2 (two) puffs every 4 to 6 hours as needed for cough . 8 g 0 No current facility-administered medications on file prior to visit. ALLERGIES/INTOLERANCES Allergies Allergen Reactions Amoxicillin Diarrhea Augmentin [Amoxicillin-Pot Clavulanate] GI Intolerance OBJECTIVE BP 126/86 (BP Location: Left arm, Patient Position: Sitting, BP Cuff Size: Adult) Pulse (!) 100 Temp 98 F (36.7 C) (Oral) SpO2 96% Physical Exam Vitals and nursing note reviewed. Constitutional: Appearance: She is well-developed. HENT: Head: Normocephalic and atraumatic. Right Ear: Tympanic membrane normal. Left Ear: Tympanic membrane normal. Nose: Congestion present. Mouth/Throat: Mouth: Mucous membranes are moist. Pharynx: Oropharynx is clear. Posterior oropharyngeal erythema present. No pharyngeal swelling, oropharyngeal exudate or uvula swelling. Tonsils: No tonsillar exudate or tonsillar abscesses. 1+ on the right. 1+ on the left. Eyes: Conjunctiva/sclera: Conjunctivae normal. Pupils: Pupils are equal, round, and reactive to light. Cardiovascular: Rate and Rhythm: Normal rate and regular rhythm. Pulses: Normal pulses. Heart sounds: Normal heart sounds. Pulmonary: Effort: Pulmonary effort is normal. Breath sounds: Normal breath sounds. Abdominal: General: Bowel sounds are normal. Palpations: Abdomen is soft. Musculoskeletal: General: Normal range of motion. Cervical back: Normal range of motion. Skin: General: Skin is warm. Capillary Refill: Capillary refill takes less than 2 seconds. Findings: No rash. Neurological: Mental Status: She is alert and oriented to person, place, and time. Psychiatric: Mood and Affect: Mood normal. PROCEDURE Procedures Results No results found for this or any previous visit (from the past 168 hour(s)). ASSESSMENT/PLAN (expressed as patient instructions): 1. Positive self-administered antigen test for COVID-19 Return if symptoms worsen or fail to improve. MDM Section [facility] AT [address] [id number] Today's Date: 11/22/23 Chosen Name: Willow Valdez Legal Name: Willow Valdez : 2000 You tested POSITIVE for COVID. We discussed results these results on the phone. Based on your symptoms and other risk factors, treatment with monoclonal antibodies are not indicated for you. Here is a list of the other things we discussed during our conversation: 1) Regardless of vaccination status, isolate (stay home and away from others in the household) using the the CDC isolation and quarantine calculator- https://www.cdc.gov/coronavirus /2019-ncov/your-health/quaranti ne-isolation.html In summary, isolate until you meet ALL criteria listed below: 5 days have passed since the onset of symptoms (or 5 days from positive test if asymptomatic) AND You have gone 24 without a fever without the use of fever-reducing medication AND Your symptoms have completely resolved or have been consistently improving for several days AND *If your symptoms improve and then return, contact us for more information. If your symptoms worsen or you required steroids, supplemental oxygen or hospitalization due to your illness, contact [facility] for updated guidance on when to end isolation. 2) You must continue to wear a mask around others for a total of 10 days after the start of symptoms. 4) Notify close contacts beginning 48 hours prior to the onset of your symptoms. They should follow the CDC guidelines for quarantine (link above to calculator). 5) Follow up if you have questions or if your symptoms change or worsen at any time. Cassandra Ley CNP ORDERS PLACED THIS VISIT No orders of the defined types were placed in this encounter. MEDICATION LIST AT END OF VISIT Current Outpatient Medications Medication Sig Dispense Refill cetirizine (ZYRTEC) 10 MG tablet Take 1 (one) tablet (10 mg total) by mouth daily . 30 tablet 2 multivitamin capsule Take 1 (one) capsule by mouth . norethindrone (MICRONOR) 0.35 mg tablet Take 1 (one) tablet (0.35 mg total) by mouth daily . 84 tablet 4 sertraline (ZOLOFT) 50 MG tablet Take 1 (one) tablet (50 mg total) by mouth daily . 90 tablet 1 clindamycin (CLEOCIN T) 1 % lotion APPLY TO AFFECTED AREA ON THE BACK ONCE DAILY No current facility-administered medications for this visit. documented in this encounter [facility] 11[facility]05[facility]23 History of Presen t illness Narrative Blood draw to LT AC x1 attempt, successful. 2 green top tubes collected for send out. Patient stated she was feeling nauseous and lightheaded after the blood draw so we laid her down in the chair and provided her ice water, crackers, and a cool towel. Patient was then monitored until she felt better and could ambulate safely. PATIENT NAME: Willow Valdez [facility] [address] [place] [id number] : 2000 DATE OF VISIT: 11/05/2023 #: [id number] PROVIDER: Cassandra Ley CNP Chief Complaint Patient presents with T-spot order Needs T-spot for nursing . SUBJECTIVE 23 y.o. female presents T-spot order (Needs T-spot for nursing .) Arrived to office requesting T-Spot lab testing for nursing program Denies previous positive TB testing Has never lived outside of the [place] MEDICAL ISSUES Past Medical History: Diagnosis Date Allergic Anxiety Concussion Depression Fibroids History of MRSA infection 04/2023 UTI (urinary tract infection) Patient Active Problem List Diagnosis Family history of thyroid disease Anxiety Depression Uterine leiomyoma SOCIAL HISTORY Social History Socioeconomic History Marital status: Single Tobacco Use Smoking status: Never Smokeless tobacco: Never Vaping Use Vaping status: Some Days Substances: Nicotine, Flavoring Devices: Disposable Substance and Sexual Activity Alcohol use: Yes Alcohol/week: 4.0 standard drinks of alcohol Types: 4 Shots of liquor per week Comment: weekly Drug use: Yes Types: Marijuana Comment: occassionally Sexual activity: Not Currently Partners: Male control/protection: Condom, OCP Social Determinants of Health Financial Resource Strain: Low Risk (04/15/2020) Overall Financial Resource Strain (CARDIA) Difficulty of Paying Living Expenses: Not hard at all Food Insecurity: No Food Insecurity (04/15/2020) Hunger Vital Sign Worried About Running Out of Food in the Last Year: Never true Ran Out of Food in the Last Year: Never true Transportation Needs: No Transportation Needs (04/15/2020) PRAPARE - Transportation Lack of Transportation (Medical): No Lack of Transportation (Non-Medical): No Social Connections: Unknown (04/15/2020) Social Connection and Isolation Panel [NHANES] Frequency of Social Gatherings with Friends and Family: Once a week FAMILY HISTORY Family History Problem Relation Age of Onset Cancer Mother cervical Fibroids Mother Depression Mother Heart attack Father 57 Thyroid disease Father hypothyroidism Arrhythmia Father bundle branch block Depression Father Fibroids Maternal Grandmother Alzheimer's disease Maternal Grandmother Atrial fibrillation Maternal Grandmother Cancer Maternal Grandfather pancreatic Heart disease Maternal Grandfather Prostate cancer Maternal Grandfather Heart failure Paternal Grandmother Cancer Paternal Grandfather Prostate cancer Paternal Grandfather Thyroid disease Brother hyperthryoidism Asthma Brother (adolescent) in remission Breast cancer Other Colon cancer Other REVIEW OF SYSTEMS Review of Systems Constitutional: Negative for chills, fatigue and fever. HENT: Negative for congestion and sinus pain. Respiratory: Negative for cough and shortness of breath. Cardiovascular: Negative for chest pain and palpitations. Gastrointestinal: Negative for abdominal pain, constipation, diarrhea, nausea and vomiting. Musculoskeletal: Negative for arthralgias and myalgias. Skin: Negative for rash. Neurological: Negative for dizziness and headaches. Psychiatric/Behavioral: Negative for confusion. MEDICATIONS PRIOR TO VISIT Current Outpatient Medications on File Prior to Visit Medication Sig Dispense Refill albuterol 90 mcg/actuation inhaler Inhale 2 (two) puffs every 4 to 6 hours as needed for cough . 8 g 0 cetirizine (ZYRTEC) 10 MG tablet Take 1 (one) tablet (10 mg total) by mouth daily . 30 tablet 2 clindamycin (CLEOCIN T) 1 % lotion APPLY TO AFFECTED AREA ON THE BACK ONCE DAILY multivitamin capsule Take 1 (one) capsule by mouth . norethindrone (MICRONOR) 0.35 mg tablet Take 1 (one) tablet (0.35 mg total) by mouth daily . 84 tablet 4 sertraline (ZOLOFT) 50 MG tablet Take 1 (one) tablet (50 mg total) by mouth daily . 90 tablet 1 No current facility-administered medications on file prior to visit. ALLERGIES/INTOLERANCES Allergies Allergen Reactions Amoxicillin Diarrhea Augmentin [Amoxicillin-Pot Clavulanate] GI Intolerance OBJECTIVE BP 121/73 (BP Location: Right arm, Patient Position: Sitting, BP Cuff Size: Adult) Pulse 84 Temp 98 F (36.7 C) (Oral) SpO2 100% Physical Exam Vitals and nursing note reviewed. Constitutional: Appearance: She is well-developed. HENT: Head: Normocephalic and atraumatic. Cardiovascular: Rate and Rhythm: Normal rate and regular rhythm. Pulses: Normal pulses. Heart sounds: Normal heart sounds. Pulmonary: Effort: Pulmonary effort is normal. Breath sounds: Normal breath sounds. Musculoskeletal: General: Normal range of motion. Cervical back: Normal range of motion. Skin: General: Skin is warm. Capillary Refill: Capillary refill takes less than 2 seconds. Findings: No rash. Neurological: Mental Status: She is alert and oriented to person, place, and time. Psychiatric: Mood and Affect: Mood normal. PROCEDURE Procedures Results No results found for this or any previous visit (from the past 168 hour(s)). ASSESSMENT/PLAN (expressed as patient instructions): 1. Immunity status testing T-Spot TB Screen T-Spot TB Screen Return if symptoms worsen or fail to improve. MDM [facility] as needed ORDERS PLACED THIS VISIT Orders Placed This Encounter Procedures T-Spot TB Screen MEDICATION LIST AT END OF VISIT Current Outpatient Medications Medication Sig Dispense Refill albuterol 90 mcg/actuation inhaler Inhale 2 (two) puffs every 4 to 6 hours as needed for cough . 8 g 0 cetirizine (ZYRTEC) 10 MG tablet Take 1 (one) tablet (10 mg total) by mouth daily . 30 tablet 2 clindamycin (CLEOCIN T) 1 % lotion APPLY TO AFFECTED AREA ON THE BACK ONCE DAILY multivitamin capsule Take 1 (one) capsule by mouth . norethindrone (MICRONOR) 0.35 mg tablet Take 1 (one) tablet (0.35 mg total) by mouth daily . 84 tablet 4 sertraline (ZOLOFT) 50 MG tablet Take 1 (one) tablet (50 mg total) by mouth daily . 90 tablet 1 No current facility-administered medications for this visit. documented in [facility] 11[facility]05[facility]23 Note PATIENT NAME: Macrina Valdez [facility] [address] [place] [id number] : 2000 DATE OF VISIT: 11/05/2023 SS#: [id number] PROVIDER: Cassandra Ley CNP Chief Complaint Patient presents with T-spot order Needs T-spot for nursing . SUBJECTIVE 23 y.o. female presents T-spot order (Needs T-spot for nursing .) Arrived to office requesting T-Spot lab testing for nursing program Denies previous positive TB testing Has never lived outside of the [place] MEDICAL ISSUES Past Medical History: Diagnosis Date Allergic Anxiety Concussion Depression Fibroids History of MRSA infection 04/2023 UTI (urinary tract infection) Patient Active Problem List Diagnosis Family history of thyroid disease Anxiety Depression Uterine leiomyoma SOCIAL HISTORY Social History Socioeconomic History Marital status: Single Tobacco Use Smoking status: Never Smokeless tobacco: Never Vaping Use Vaping status: Some Days Substances: Nicotine, Flavoring Devices: Disposable Substance and Sexual Activity Alcohol use: Yes Alcohol/week: 4.0 standard drinks of alcohol Types: 4 Shots of liquor per week Comment: weekly Drug use: Yes Types: Marijuana Comment: occassionally Sexual activity: Not Currently Partners: Male control/protection: Condom, OCP Social Determinants of Health Financial Resource Strain: Low Risk (04/15/2020) Overall Financial Resource Strain (CARDIA) Difficulty of Paying Living Expenses: Not hard at all Food Insecurity: No Food Insecurity (04/15/2020) Hunger Vital Sign Worried About Running Out of Food in the Last Year: Never true Ran Out of Food in the Last Year: Never true Transportation Needs: No Transportation Needs (04/15/2020) PRAPARE - Transportation Lack of Transportation (Medical): No Lack of Transportation (Non-Medical): No Social Connections: Unknown (04/15/2020) Social Connection and Isolation Panel [NHANES] Frequency of Social Gatherings with Friends and Family: Once a week FAMILY HISTORY Family History Problem Relation Age of Onset Cancer Mother cervical Fibroids Mother Depression Mother Heart attack Father 57 Thyroid disease Father hypothyroidism Arrhythmia Father bundle branch block Depression Father Fibroids Maternal Grandmother Alzheimer's disease Maternal Grandmother Atrial fibrillation Maternal Grandmother Cancer Maternal Grandfather pancreatic Heart disease Maternal Grandfather Prostate cancer Maternal Grandfather Heart failure Paternal Grandmother Cancer Paternal Grandfather Prostate cancer Paternal Grandfather Thyroid disease Brother hyperthryoidism Asthma Brother (adolescent) in remission Breast cancer Other Colon cancer Other REVIEW OF SYSTEMS Review of Systems Constitutional: Negative for chills, fatigue and fever. HENT: Negative for congestion and sinus pain. Respiratory: Negative for cough and shortness of breath. Cardiovascular: Negative for chest pain and palpitations. Gastrointestinal: Negative for abdominal pain, constipation, diarrhea, nausea and vomiting. Musculoskeletal: Negative for arthralgias and myalgias. Skin: Negative for rash. Neurological: Negative for dizziness and headaches. Psychiatric/Behavioral: Negative for confusion. MEDICATIONS PRIOR TO VISIT Current Outpatient Medications on File Prior to Visit Medication Sig Dispense Refill albuterol 90 mcg/actuation inhaler Inhale 2 (two) puffs every 4 to 6 hours as needed for cough . 8 g 0 cetirizine (ZYRTEC) 10 MG tablet Take 1 (one) tablet (10 mg total) by mouth daily . 30 tablet 2 clindamycin (CLEOCIN T) 1 % lotion APPLY TO AFFECTED AREA ON THE BACK ONCE DAILY multivitamin capsule Take 1 (one) capsule by mouth . norethindrone (MICRONOR) 0.35 mg tablet Take 1 (one) tablet (0.35 mg total) by mouth daily . 84 tablet 4 sertraline (ZOLOFT) 50 MG tablet Take 1 (one) tablet (50 mg total) by mouth daily . 90 tablet 1 No current facility-administered medications on file prior to visit. ALLERGIES/INTOLERANCES Allergies Allergen Reactions Amoxicillin Diarrhea Augmentin [Amoxicillin-Pot Clavulanate] GI Intolerance OBJECTIVE BP 121/73 (BP Location: Right arm, Patient Position: Sitting, BP Cuff Size: Adult) Pulse 84 Temp 98 degrees F (36.7 degrees C) (Oral) SpO2 100% Physical Exam Vitals and nursing note reviewed. Constitutional: Appearance: She is well-developed. HENT: Head: Normocephalic and atraumatic. Cardiovascular: Rate and Rhythm: Normal rate and regular rhythm. Pulses: Normal pulses. Heart sounds: Normal heart sounds. Pulmonary: Effort: Pulmonary effort is normal. Breath sounds: Normal breath sounds. Musculoskeletal: General: Normal range of motion. Cervical back: Normal range of motion. Skin: General: Skin is warm. Capillary Refill: Capillary refill takes less than 2 seconds. Findings: No rash. Neur (more content not included)... [facility] 09-15-2023 History general Narrative - Reported No medical history recorded. Gynecological HistoryNo gynecological history recorded. Obstetrics History GPAL:G 0 P 0 0 0 0 [facility] 07-24-2023 Note [facility] [address] [place] [address] [phone] DATE OF ENCOUNTER: 07/24/23 Legal Name: Willow Valdez Date of : 2000 (22 y.o. female) Chief Complaint: The patient presents for Follow-up (Here to follow-up on anxiety. Last seen regarding this problem on 04/11/23. Medication(s) continued at that time. Currently taking sertraline 50mg daily. Denies concerns. ) HPI: Taking 2 classes this summer. Feeling fine. All good. Anxiety is much lower now that school is done. Things have been pretty manageable in general, made schedule for class work and got it done . No big freak outs which is first time in 5 years. End of semester is usually pretty hard for her. In past would get overwhelmed and cry a lot but that didn't happen this year. Appetite is good. Eating 3 meals and snacks between. Thinks she's gained a couple pounds which is good. Sleep is perfectly fine. The following portions of the patient's history were reviewed and updated as appropriate: allergies, current medications, past family history, past medical history, past social history, past surgical history and problem list. Outpatient Medications as of 07/24/2023 Medication Sig albuterol 90 mcg/actuation inhaler Inhale 2 (two) puffs every 4 to 6 hours as needed for cough . cetirizine (ZYRTEC) 10 MG tablet Take 1 (one) tablet (10 mg total) by mouth daily . clindamycin (CLEOCIN T) 1 % lotion APPLY TO AFFECTED AREA ON THE BACK ONCE DAILY multivitamin capsule Take 1 (one) capsule by mouth . norethindrone (MICRONOR) 0.35 mg tablet Take 1 (one) tablet (0.35 mg total) by mouth daily . sertraline (ZOLOFT) 50 MG tablet Take 1 (one) tablet (50 mg total) by mouth daily . predniSONE (DELTASONE) 10 MG tablet Take 4 tabs po for 3 days then 3 tabs po for 3 days then 2 tabs for 2 days then take 1 tab po and stop . (Patient not taking: Reported on 07/24/2023 .) Objective: BP 121/75 (BP Location: Left arm, Patient Position: Sitting, BP Cuff Size: Adult) Pulse 73 Temp 98.6 degrees F (37 degrees C) (Infrared) Ht 5' 7.5 Wt 54.7 kg (120 lb 9.6 oz) LMP 03/19/2023 (Within Weeks) Comment: LMP d/t takes OCP continuously, skipping placebo pill SpO2 98% BMI 18.61 kg/m Physical Exam Constitutional: Oriented to person, place, and time and well-developed, well-nourished, and in no distress. Head: Normocephalic and atraumatic. Eyes: No scleral icterus. No periorbital edema. No discharge. Respiratory: No respiratory distress. No use of accessory muscles. Neurological: Cranial nerves 2-12 grossly intact. Normal gross movement of extremities. Normal gait. Psychiatric: Mood and affect normal. Assessment/Plan: 1. Anxiety - sertraline (ZOLOFT) 50 MG tablet; Take 1 (one) tablet (50 mg total) by mouth daily . Dispense: 90 tablet; Refill: 1 Patient Instructions: Continue current medication. Follow up in 6 months. Can go back to every 3 months if she'd like after summer. Insurance requires 90 day prescriptions. My ongoing relationship with this patient requires continued responsibility and cognitive effort of being the focal point for all services related to chronic condition(s). Irene Vazquez DO AUTHENTICATED BY IRENE VAZQUEZ, ON 07/24/2023 11:09:10 [facility] 07-24-2023 History of Presen t illness Narrative [address] CARE AT [address] [phone] DATE OF ENCOUNTER: 07/24/23 Legal Name: iWllow Valdez Date of : 2000 (22 y.o. female) Chief Complaint: The patient presents for Follow-up (Here to follow-up on anxiety. Last seen regarding this problem on 04/11/23. Medication(s) continued at that time. Currently taking sertraline 50mg daily. Denies concerns. ) HPI: Taking 2 classes this summer. Feeling fine. All good. Anxiety is much lower now that school is done. Things have been pretty manageable in general, made schedule for class work and got it done . No big freak outs which is first time in 5 years. End of semester is usually pretty hard for her. In past would get overwhelmed and cry a lot but that didn't happen this year. Appetite is good. Eating 3 meals and snacks between. Thinks she's gained a couple pounds which is good. Sleep is perfectly fine. The following portions of the patient's history were reviewed and updated as appropriate: allergies, current medications, past family history, past medical history, past social history, past surgical history and problem list. Outpatient Medications as of 07/24/2023 Medication Sig albuterol 90 mcg/actuation inhaler Inhale 2 (two) puffs every 4 to 6 hours as needed for cough . cetirizine (ZYRTEC) 10 MG tablet Take 1 (one) tablet (10 mg total) by mouth daily . clindamycin (CLEOCIN T) 1 % lotion APPLY TO AFFECTED AREA ON THE BACK ONCE DAILY multivitamin capsule Take 1 (one) capsule by mouth . norethindrone (MICRONOR) 0.35 mg tablet Take 1 (one) tablet (0.35 mg total) by mouth daily . sertraline (ZOLOFT) 50 MG tablet Take 1 (one) tablet (50 mg total) by mouth daily . predniSONE (DELTASONE) 10 MG tablet Take 4 tabs po for 3 days then 3 tabs po for 3 days then 2 tabs for 2 days then take 1 tab po and stop . (Patient not taking: Reported on 07/24/2023 .) Objective: BP 121/75 (BP Location: Left arm, Patient Position: Sitting, BP Cuff Size: Adult) Pulse 73 Temp 98.6 F (37 C) (Infrared) Ht 5' 7.5 Wt 54.7 kg (120 lb 9.6 oz) LMP 03/19/2023 (Within Weeks) Comment: LMP d/t takes OCP continuously, skipping placebo pill SpO2 98% BMI 18.61 kg/m Physical Exam Constitutional: Oriented to person, place, and time and well-developed, well-nourished, and in no distress. Head: Normocephalic and atraumatic. Eyes: No scleral icterus. No periorbital edema. No discharge. Respiratory: No respiratory distress. No use of accessory muscles. Neurological: Cranial nerves 2-12 grossly intact. Normal gross movement of extremities. Normal gait. Psychiatric: Mood and affect normal. Assessment/Plan: 1. Anxiety - sertraline (ZOLOFT) 50 MG tablet; Take 1 (one) tablet (50 mg total) by mouth daily . Dispense: 90 tablet; Refill: 1 Patient Instructions: Continue current medication. Follow up in 6 months. Can go back to every 3 months if she'd like after summer. Insurance requires 90 day prescriptions. My ongoing relationship with this patient requires continued responsibility and cognitive effort of being the focal point for all services related to chronic condition(s). Irene Vazquez DO documented in this encounter [facility] 07-03-2023 History of Presen t illness Narrative PATIENT NAME: Willow Valdez [facility] [address] [place] [id number] : 2000 DATE OF VISIT: 07/03/2023 #: [id number] PROVIDER: Livia Freeman CNP Chief Complaint Patient presents with Sore Throat Pt c/o ST x 2 days. She took motrin once. SUBJECTIVE 22 y.o. female presents Sore Throat (Pt c/o ST x 2 days. She took motrin once.) Sore throat since Sunday Hard to swallow Still has tonsils No n/v/d Some allergies and sinus congestion Declines covid/flu and mono testing Sore Throat This is a new problem. The current episode started in the past 7 days. The problem has been gradually worsening. Neither side of throat is experiencing more pain than the other. There has been no fever. The pain is at a severity of 4/10. The pain is moderate. Associated symptoms include congestion, a plugged ear sensation, swollen glands and trouble swallowing. Pertinent negatives include no abdominal pain, coughing, diarrhea, drooling, ear discharge, ear pain, headaches, hoarse voice, neck pain, shortness of breath, stridor or vomiting. She has tried NSAIDs and gargles for the symptoms. The treatment provided mild relief. MEDICAL ISSUES Past Medical History: Diagnosis Date Allergic Anxiety Concussion Depression Fibroids UTI (urinary tract infection) Patient Active Problem List Diagnosis Family history of thyroid disease Anxiety Depression Uterine leiomyoma SOCIAL HISTORY Social History Socioeconomic History Marital status: Single Tobacco Use Smoking status: Never Smokeless tobacco: Never Vaping Use Vaping Use: Some days Substances: Nicotine, Flavoring Devices: Disposable Substance and Sexual Activity Alcohol use: Yes Alcohol/week: 4.0 standard drinks of alcohol Types: 4 Shots of liquor per week Comment: weekly Drug use: Yes Types: Marijuana Comment: occassionally Sexual activity: Not Currently Partners: Male control/protection: Condom, OCP Social Determinants of Health Financial Resource Strain: Low Risk (04/15/2020) Overall Financial Resource Strain (CARDIA) Difficulty of Paying Living Expenses: Not hard at all Food Insecurity: No Food Insecurity (04/15/2020) Hunger Vital Sign Worried About Running Out of Food in the Last Year: Never true Ran Out of Food in the Last Year: Never true Transportation Needs: No Transportation Needs (04/15/2020) PRAPARE - Transportation Lack of Transportation (Medical): No Lack of Transportation (Non-Medical): No Social Connections: Unknown (04/15/2020) Social Connection and Isolation Panel [NHANES] Frequency of Social Gatherings with Friends and Family: Once a week FAMILY HISTORY Family History Problem Relation Age of Onset Cancer Mother cervical Fibroids Mother Depression Mother Heart attack Father 57 Thyroid disease Father hypothyroidism Arrhythmia Father bundle branch block Depression Father Fibroids Maternal Grandmother Alzheimer's disease Maternal Grandmother Atrial fibrillation Maternal Grandmother Cancer Maternal Grandfather pancreatic Heart disease Maternal Grandfather Prostate cancer Maternal Grandfather Heart failure Paternal Grandmother Cancer Paternal Grandfather Prostate cancer Paternal Grandfather Thyroid disease Brother hyperthryoidism Asthma Brother (adolescent) in remission Breast cancer Other Colon cancer Other REVIEW OF SYSTEMS Review of Systems Constitutional: Positive for appetite change. Negative for activity change, chills, diaphoresis, fatigue, fever and unexpected weight change. HENT: Positive for congestion, rhinorrhea, sinus pressure, sore throat and trouble swallowing. Negative for drooling, ear discharge, ear pain, hoarse voice, mouth sores and voice change. Eyes: Negative for pain. Respiratory: Negative for cough, chest tightness, shortness of breath and stridor. Cardiovascular: Negative for chest pain. Gastrointestinal: Negative for abdominal pain, diarrhea, nausea and vomiting. Musculoskeletal: Negative for neck pain and neck stiffness. Skin: Negative for rash. Neurological: Negative for headaches. Hematological: Does not bruise/bleed easily. All other systems reviewed and are negative. MEDICATIONS PRIOR TO VISIT Current Outpatient Medications on File Prior to Visit Medication Sig Dispense Refill multivitamin capsule Take 1 (one) capsule by mouth . norethindrone (MICRONOR) 0.35 mg tablet Take 1 (one) tablet (0.35 mg total) by mouth daily . 84 tablet 4 sertraline (ZOLOFT) 50 MG tablet Take 1 (one) tablet (50 mg total) by mouth daily . 90 tablet 0 albuterol 90 mcg/actuation inhaler Inhale 2 (two) puffs every 4 to 6 hours as needed for cough . 8 g 0 No current facility-administered medications on file prior to visit. ALLERGIES/INTOLERANCES Allergies Allergen Reactions Amoxicillin Diarrhea Augmentin [Amoxicillin-Pot Clavulanate] GI Intolerance OBJECTIVE BP 129/83 (BP Location: Right arm, Patient Position: Sitting, BP Cuff Size: Adult) Pulse 73 Temp 98.1 F (36.7 C) (Oral) SpO2 98% Physical Exam Vitals and nursing note reviewed. Constitutional: General: She is not in acute distress. Appearance: Normal appearance. She is not ill-appearing or toxic-appearing. HENT: Head: Normocephalic and atraumatic. Right Ear: Tympanic membrane, ear canal and external ear normal. Left Ear: Tympanic membrane, ear canal and external ear normal. Nose: Congestion present. Mouth/Throat: Mouth: Mucous membranes are moist. Pharynx: Posterior oropharyngeal erythema present. Eyes: General: No scleral icterus. Right eye: No discharge. Left eye: No discharge. Pupils: Pupils are equal, round, and reactive to light. Cardiovascular: Rate and Rhythm: Normal rate and regular rhythm. Heart sounds: Normal heart sounds. Pulmonary: Effort: Pulmonary effort is normal. Breath sounds: Normal breath sounds. Musculoskeletal: Cervical back: Normal range of motion and neck supple. Tenderness present. No rigidity. Lymphadenopathy: Cervical: Cervical adenopathy present. Skin: General: Skin is warm and dry. Neurological: Mental Status: She is alert and oriented to person, place, and time. Psychiatric: Mood and Affect: Mood normal. Behavior: Behavior normal. PROCEDURE Procedures Results Recent Results (from the past 168 hour(s)) POC Rapid Strep A Collection Time: 07/03/23 9:01 AM Result Value Ref Range Strep A Screen Negative Negative ASSESSMENT/PLAN (expressed as patient instructions): 1. Sore throat POC Rapid Strep A cetirizine (ZYRTEC) 10 MG tablet predniSONE (DELTASONE) 10 MG tablet Strep A Culture, Throat Strep A Culture, Throat 2. Upper respiratory tract infection, unspecified type cetirizine (ZYRTEC) 10 MG tablet predniSONE (DELTASONE) 10 MG tablet Return if symptoms worsen or fail to improve. MDM Section ORDERS PLACED THIS VISIT Orders Placed This Encounter Procedures Strep A Culture, Throat POC Rapid Strep A MEDICATION LIST AT END OF VISIT Current Outpatient Medications Medication Sig Dispense Refill multivitamin capsule Take 1 (one) capsule by mouth . norethindrone (MICRONOR) 0.35 mg tablet Take 1 (one) tablet (0.35 mg total) by mouth daily . 84 tablet 4 sertraline (ZOLOFT) 50 MG tablet Take 1 (one) tablet (50 mg total) by mouth daily . 90 tablet 0 albuterol 90 mcg/actuation inhaler Inhale 2 (two) puffs every 4 to 6 hours as needed for cough . 8 g 0 cetirizine (ZYRTEC) 10 MG tablet Take 1 (one) tablet (10 mg total) by mouth daily . 30 tablet 2 predniSONE (DELTASONE) 10 MG tablet Take 4 tabs po for 3 days then 3 tabs po for 3 days then 2 tabs for 2 days then take 1 tab po and stop . 28 tablet 0 No current facility-administered medications for this visit. documented [facility] 04[facility]11-[facility]23 History of Presen t illness Narrative [address] CARE AT [address] [address] Date: 04/11/23 Legal Name: Willow Valdez : 2000 Chief Complaint: The patient presents for Follow-up (Follow up from 12/06/22 for anxiety, currently taking sertraline 50 mg daily; Also here for 1st pap, decided no longer wants IUD) LMP Dates from Last 1 Encounters: LMP: 03/30/2023 HPI: Here for annual exam and to discuss contraception and anxiety. Doing fine with sertraline. Doing yoga about every other day which helps. Tries to do non-pharmaceutical options to help. On psych rotation and doing mindfulness activities which kind of helps. Likes current dose of medication. No side effects from medication. Currently using progestin-only pills. Would like to continue same. Never forgets pills. Periods are irregular. Last one was a couple weeks ago and lasted about 10 days. Would like to have Pap testing today. The following portions of the patient's history were reviewed and updated as appropriate: allergies, current medications, past family history, past medical history, past social history, past surgical history and problem list. Outpatient Medications as of 04/11/2023 Medication Sig albuterol 90 mcg/actuation inhaler Inhale 2 (two) puffs every 4 to 6 hours as needed for cough . multivitamin capsule Take 1 (one) capsule by mouth . norethindrone (MICRONOR) 0.35 mg tablet Take 1 (one) tablet (0.35 mg total) by mouth daily . sertraline (ZOLOFT) 50 MG tablet Take 1 (one) tablet (50 mg total) by mouth daily . Objective: BP 107/77 (BP Location: Left arm, Patient Position: Sitting, BP Cuff Size: Child) Pulse 70 Temp 98.3 F (36.8 C) (Infrared) Resp 16 Ht 5' 7.5 Wt 53.9 kg (118 lb 12.8 oz) LMP 03/30/2023 (Approximate) SpO2 100% BMI 18.33 kg/m Physical Exam Vitals reviewed. Exam conducted with a tire design engineer present (Anabel Angel LPN). Constitutional: General: She is awake. Appearance: Normal appearance. She is well-developed. HENT: Head: Normocephalic and atraumatic. Eyes: General: No scleral icterus. Right eye: No discharge. Left eye: No discharge. Conjunctiva/sclera: Conjunctivae normal. Right eye: Right conjunctiva is not injected. Left eye: Left conjunctiva is not injected. Pulmonary: Effort: Pulmonary effort is normal. Abdominal: Palpations: Abdomen is soft. There is no hepatomegaly, splenomegaly or mass. Tenderness: There is no abdominal tenderness. Genitourinary: General: Normal vulva. Exam position: Lithotomy position. Pubic Area: No rash. Labia: Right: No rash or lesion. Left: No rash or lesion. Vagina: No vaginal discharge, erythema or lesions. Cervix: No cervical motion tenderness, discharge, friability or lesion. Uterus: Not tender. Adnexa: Right: No mass or tenderness. Left: No mass or tenderness. Musculoskeletal: Right lower leg: No edema. Left lower leg: No edema. Skin: General: Skin is warm and dry. Neurological: General: No focal deficit present. Mental Status: She is alert and oriented to person, place, and time. Psychiatric: Mood and Affect: Mood normal. Behavior: Behavior normal. Behavior is cooperative. Assessment/Plan: 1. Annual physical exam 2. Screening for malignant neoplasm of cervix - Thinprep Pap Smear 3. Screening for STD (sexually transmitted disease) - Chlamydia/Gonorrhoeae Amplified RNA 4. Anxiety - sertraline (ZOLOFT) 50 MG tablet; Take 1 (one) tablet (50 mg total) by mouth daily . Dispense: 90 tablet; Refill: 0 5. Contraceptive education - norethindrone (MICRONOR) 0.35 mg tablet; Take 1 (one) tablet (0.35 mg total) by mouth daily . Dispense: 84 tablet; Refill: 4 Patient Instructions: Discussed reasons for pap testing and current guidelines for routine testing. Discussed STI testing recommendations based on age and practices. Discussed prevalence, risks and modes of transmission for different STIs. Follow up in 1 year for annual exam and in 3 months regarding anxiety. Irene Vazquez DO documented [facility] 12-06-[facility]22 History of Presen t illness Narrative Blood draw to LT AC. Pt tolerated well documented in this encounter [facility] 12-06-2022 History of Presen t illness Narrative [address] CARE AT [address] [id number] Date: 12/06/22 Legal Name: Willow Valdez : 2000 Chief Complaint: The patient presents for Gynecologic Exam (Here for annual well visit. Today will be first Pap test. Would like to discuss control options. Intake form is in the chart. Reports concerns of Zoloft 50 mg daily and needing a refill..// ) LMP Dates from Last 1 Encounters: LMP: 11/13/2022 HPI: Here for annual exam and to discuss contraception. Doesn't like the ideo of being on systemic control. Thinking about IUD but very scared of getting one. Friends have had variety of experiences. Leaning toward Mirean or Kyleena. Would like to do it if she can get anesthetic for insertion. No history of migraine with aura. No personal history of HTN, liver problems, blood clots. No vaginal discharge, itching, odor, pain with urination. No history of STI. No pain with intercourse. No bleeding after intercourse. Due for first pap. No breast changes including changes in skin, nipple discharge or breast lumps. No rashes, new moles or changes in skin. Doing well with zoloft. Feels fine when she takes it. Gets brain zaps if she misses it. No side effects. Feels more unstable when she hasn't taken it. Minor inconveniences will affect her more when she's not taking it. More irritable. When she went up to 75 mg she felt under water and brain foggy. Requesting refill. Previously managed by psychiatrist but was told to follow up here now that she has primary care provider here. Reports history of low iron. Had fatigue with that. Has not been taking iron. Would like to have lab checked. Thinks in the past it was always just borderline low. PHQ-2 Over the last 2 weeks, how often have you been bothered by any of the following problems? Little interest or pleasure in doing things: Several days Feeling down, depressed, or hopeless: Several days PHQ-2 Total Score: 2 SVETLANA-2 Over the last 2 weeks, how often have you been bothered by the following problems? Feeling nervous, anxious or on edge: Several days Not being able to stop or control worrying: Several days Sexual and social history updated. Medical intake form reviewed with patient. The following portions of the patient's history were reviewed and updated as appropriate: allergies, current medications, past family history, past medical history, past social history, past surgical history and problem list. Outpatient Medications as of 12/06/2022 Medication Sig albuterol 90 mcg/actuation inhaler Inhale 2 (two) puffs every 4 to 6 hours as needed for cough . multivitamin capsule Take 1 (one) capsule by mouth . [DISCONTINUED] norethindrone-ethinyl estradiol (MICROGESTIN 04/07) 1-20 mg-mcg per tablet Take 1 (one) tablet by mouth daily . [DISCONTINUED] sertraline (ZOLOFT) 50 MG tablet Take 1.5 (one and a half) tablets (75 mg total) by mouth daily . Objective: BP 125/79 (BP Location: Left arm, Patient Position: Sitting, BP Cuff Size: Adult) Pulse 79 Temp 98.4 F (36.9 C) Resp 14 Ht 5' 7.5 Wt 53.5 kg (118 lb) LMP 11/13/2022 (Approximate) SpO2 99% BMI 18.21 kg/m Physical Exam Vitals reviewed. Constitutional: General: She is awake. She is not in acute distress. Appearance: Normal appearance. She is well-developed and well-groomed. HENT: Head: Normocephalic and atraumatic. Eyes: General: No scleral icterus. Right eye: No discharge. Left eye: No discharge. Conjunctiva/sclera: Conjunctivae normal. Right eye: Right conjunctiva is not injected. No exudate. Left eye: Left conjunctiva is not injected. No exudate. Pulmonary: Effort: Pulmonary effort is normal. No respiratory distress. Neurological: General: No focal deficit present. Mental Status: She is alert and oriented to person, place, and time. Cranial Nerves: Cranial nerves 2-12 are intact. Gait: Gait normal. Comments: CN 2-12 grossly intact Psychiatric: Attention and Perception: Attention and perception normal. Mood and Affect: Mood and affect normal. Speech: Speech normal. Behavior: Behavior is cooperative. Thought Content: Thought content normal. Assessment/Plan: 1. Anxiety - sertraline (ZOLOFT) 50 MG tablet; Take 1 (one) tablet (50 mg total) by mouth daily . Dispense: 30 tablet; Refill: 2 2. Low iron - Ferritin; Future - Iron and TIBC; Future 3. Contraceptive education Patient Instructions: Reviewed contraceptive options with patient and agree that the Kyleena IUD would be a good choice for this patient. Discussed IUD insertion procedure with patient. Answered patient's questions regarding chosen IUD to patient's satisfaction. Discussed RBAT. Advised of possible complications including perforation of uterus, implantation, expulsion, inability to complete placement, contraceptive failure, ectopic or infection. Advised that infection risk is greatest in first 3 weeks after insertion. Counseled on warning symptoms of above. Discussed common side effects including abnormal vaginal bleeding and cramping. Take 600 mg ibuprofen prior to procedure. Product brochure and [facility] pre-procedure handout given to patient for review. Gave information regarding how to verify benefits. Will do this and notify our office of reference number in order to schedule for IUD. ALSO CONFIRM that she wants Kyleena. Had considered Mirena, but now leaning toward Kyleena. Regarding timing for staring this method, advised the patient can insert at anytime as long as continues to abstain until time of insertion. Not sexually active since stopping oral contraceptive pills in late October. WILL INJECT LIDOCAINE at time of insertion. HCG, Pap, chlamydia and gonorrhea at time of insertion. Irene Vazquez DO documented in [facility] 11-29-2022 History general Narrative - Reported No medical history recorded. Gynecological HistoryNo gynecological history recorded. Obstetrics History GPAL:G 0 P 0 0 0 0 [employer] 09-21-2022 History of Presen t illness Narrative Lab draw x 1 successful attempt to left AC. Pt tolerated well. documented in this encounter [facility] 09-21-2022 History of Presen t illness Narrative [address] CARE AT [address] [id number] Date: 09/21/22 Legal Name: Willow Valdez Date of : 2000 (21 y.o. female) Chief Complaint: The patient presents for Establish Care (Establish care; c/o low energy, wants referral to have uterine fibroids, cysts checked, wants thyroid checked due to family history) HPI: Wants to switch primary care provider to [place]. Has been having a lot of fatigue recently. Not sure if physiological or psychological. Would like to have lab and if normal I should probably go back to my psychiatrist. Fatigue and low appetite. Started a couple weeks ago and extra bad the past couple days. Got 9 hours of sleep yesterday but then still slept for 3.5 hours during the day and was still tired. Last week had a couple days where she didn't feel like getting out of bed. Sat around all day when she did get out of bed. That is out of character. Usually runs around quite a bit but now body feels tired. Doesn't always have consistent sleep. Works t [employer] and forces self to get 8 hours before that but weekends sleep routine is abnormal. Might get 6 hours. In bed 11pm to 1am. Usually up between 6:30am if working or 9-11am if not working. I am a sharan. Naps any time she works an opening shift. Will set alarm for an hour but usually won't wake up for 2.5 hours. Struggles to wake up from naps. Now that she's thinking about it, that has been a thing since she was in high school. Loves caffeine but doesn't drink much due to cost. 1 cup a day. EtOH 4-5 drinks two days a week. THC daily. Has done mushrooms several years ago. Food intake- I'm not that good at it. Tries to get high protein yogurt because she is picky eater so way to get protein. Will have yogurt, toast, coffee, chocolate milk for breakfast. Likes breakfast. Sometimes skips lunch if she eats, something like 2 quesadillas. Dinner is my better meal because she will eat vegetables. Will have chicken and pasta a lot. Chickpea pasta due to high protein. Loves brocolli so eats that or prossels pretty much every day. Cheese at least once a day because she loves cheese. Loves snacks. Applesauce pouches, Cheez-Its, grapes, fruit, pretzels. Drinks a lot of water. At least (3) 24 oz water bottles which she always has with her. No changes in weight. Has been between 116-120# for past 3 years. When in phases of going to gym hard to gain weight so doesn't work out as much. Thinks she ends up burning off tihngs she doesn't need to burn off. Not able to put mass on body since high school. Heaviest she was was 135# in high school and attributes to more muscle mass due to lots of sports and gymnastics. Has gone down 2 pants sizes due to less thigh muscle now. Aunt recently . A lot of stress on her mother who has had schizotypical behaviors for the past coupole years but has never been diagnosed because she doesn't think there is anything wrong with herself. Would show up at [employer] in past years and ask if someone was trying to kill her. Aunt dying has made her a little less stable but not everyday problem like it was in the past for her mom. Estate issues with grandparent's as well. A couple weeks ago passed out at a concert. Was out for 5 seconds. Thinks very dehydrated. Never happened before to her. Also hadn't eaten very well that day due to being super behind. 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 Has uterine fibroid and ovarian cyst. Found when she went to ER for kidney infection. Hasn't been evaluated in a long time and would like to have it checked. Mom with history of cervical cancer so wants to just have things checked and try to catch things early. Has had irregular periods entire life. Started at age 15 and has had period every 6 weeks or so. Describes it as irregular because some days bleeding is 2 days, sometimes 7 days. No pain with periods. Also acknowledges she is not that good at seeing oral contraceptive pills consistently due to being in long distance relationship. Even when on pills bleeding is not consistent. Even when taking consistently in high school she would skip pills. If it was easy to get refills from home provider, would take more consistently. Had CT of kidneys and incidentally found uterine fibroids and ovarian cyst. No pain. Only period symptoms she has is a little moodiness and back ache. Novice like previous primary care provider was maybe a little dismissive at times. Difference in personality. Needs someone to ask her questions because she forgets what her problems. Diagnosed with MDD and generalized anxiety disorder, she thinks, in the past. That started around fall 2017. Was worse then which she attributes to being a teenager. Was all the time then. Now can notice some days she has a normal day and some days she has a weird day. Will feel fine for a week and get things done and then the next week will not want to do anything, everything sucks, I miss my boyfriend. Cycle of that. If she works even just 4 hours at [employer] in a week or other things that make her feel like she's accomplishing things she doesn't notice it. But if she's just engaging in down time she feels weird. No suicidal ideation. Worked consistent schedule earlier in summer and energy was better. When she passed out she knew she was overheated. Had had water but had only had applesauce to eat. Had to skip lunch to get to concert and hadn't eaten all day. Novice it coming on that she was going to pass out. Things were starting to get dark and talk boyfriend she needed to get out of there. No binging/purging/calorie restriction. No history of migraine with aura. No personal history of HTN, liver problems, blood clots. Interested in quitting vaping. The following portions of the patient's history were reviewed and updated as appropriate: allergies, current medications, past family history, past medical history, past social history, past surgical history and problem list. Outpatient Medications as of 09/21/2022 Medication Sig albuterol 90 mcg/actuation inhaler Inhale 2 (two) puffs every 4 to 6 hours as needed for cough . multivitamin capsule Take 1 (one) capsule by mouth . sertraline (ZOLOFT) 50 MG tablet Take 1.5 (one and a half) tablets (75 mg total) by mouth daily . [DISCONTINUED] naproxen sodium (ALEVE ORAL) Take by mouth. [DISCONTINUED] norethindrone-ethinyl estradiol (MICROGESTIN 04/07) 1-20 mg-mcg per tablet Take 1 (one) tablet by mouth daily . (Patient not taking: Reported on 09/21/2022 .) Objective: BP 107/71 (BP Location: Right arm, Patient Position: Sitting, BP Cuff Size: Adult) Pulse 90 Temp 98.6 F (37 C) (Infrared) Resp 16 Ht 5' 7.5 Wt 54.8 kg (120 lb 12.8 oz) LMP 09/07/2022 SpO2 100% BMI 18.64 kg/m Physical Exam Vitals reviewed. Constitutional: General: She is awake. She is not in acute distress. Appearance: Normal appearance. She is well-developed and well-groomed. HENT: Head: Normocephalic and atraumatic. Eyes: General: No scleral icterus. Right eye: No discharge. Left eye: No discharge. Conjunctiva/sclera: Conjunctivae normal. Right eye: Right conjunctiva is not injected. Left eye: Left conjunctiva is not injected. Neck: Thyroid: No thyroid mass or thyromegaly. Trachea: Trachea normal. Cardiovascular: Rate and Rhythm: Normal rate and regular rhythm. Heart sounds: Normal heart sounds. No murmur heard. Pulmonary: Effort: Pulmonary effort is normal. No respiratory distress. Breath sounds: Normal breath sounds and air entry. No wheezing, rhonchi or rales. Musculoskeletal: Cervical back: Neck supple. Lymphadenopathy: Cervical: Right cervical: No superficial or deep cervical adenopathy. Left cervical: No superficial or deep cervical adenopathy. Neurological: General: No focal deficit present. Mental Status: She is alert and oriented to person, place, and time. Cranial Nerves: Cranial nerves 2-12 are intact. Psychiatric: Attention and Perception: Attention and perception normal. Mood and Affect: Mood and affect normal. Speech: Speech normal. Behavior: Behavior is cooperative. Thought Content: Thought content normal. . Assessment/Plan: 1. Other fatigue - CBC and Differential; Future - TSH; Future - Basic Metabolic Panel; Future - Ferritin; Future 2. Encounter for surveillance of contraceptive pills - norethindrone-ethinyl estradiol (MICROGESTIN 04/07) 1-20 mg-mcg per tablet; Take 1 (one) tablet by mouth daily . Dispense: 28 tablet; Refill: 2 3. Uterine leiomyoma, unspecified location Patient Instructions: Reviewed CT results from 2019 which showed physiologic ovarian cyst and 8-9mm uterine fibroid. Reassured that no routine follow up is recommended in absence of symptoms. She is comfortable with this and declines further evaluation from a specialist. Advised of recommendation for first pap test after bday in October. Will schedule to do that here. Refill of oral contraceptive pills sent to pharmacy to last until annual and will send 1 year supply after that. Discussed that we can also talk about other options in more detail. She has some concerns about the risk of using oral contraceptive pills since she vapes. Considering quitting vaping when she gets wisdom teeth removed in upcoming weeks. Discussed factors that can influence energy levels such as stress, depression/anxiety, inconsistent sleep schedule, lack of physical activity, and/or poor diet in addition to medical problems. Encouraged routine sleep schedule and talked about the importance of consistent sleep/wake times and sleep hygiene. Encouraged increased caloric intake and increased frequency of mixed nutrient meals. Discussed concern about December 2021 visit heart rate of 53, low BMI and episode of passing out a couple weeks ago. Those can be signs of insufficient caloric intake. Labs as above. Willow declines follow up appointment to review and follow up on fatigue. She feels like if her labs are normal she will follow up with psychiatrist to discuss mental health aspects that may contribute. Agrees to follow up if symptoms worsen, change or fail to improve. A total of 45 minutes were spent in both [id number] and [id number] time by this physician on the day of the encounter. We discussed in depth the topics and documents outlined above. Irene Vazquez DO documented [facility] 09-12-2022 History of Presen t illness Narrative Pt here for bivalent Covid booster. Consent signed and fact sheet/handouts given to patient. Denies questions or concerns. Pt advised to remain in clinic x 20 min following injection. Immunization administered without incident. Anabel Angel LPN S: Pt is here for TB skin test/M[place]oux. Medical history reviewed. TB skin test information discussed O: No exam A: Tuberculosis Screening/M[place]oux P: Pt to RTC in 48-72 hours to have PPD reading Anabel Angel LPN documented in this encounter [facility] 07-17-2022 Telephone encounter Note 30 days sent in then she needs to come in for her routine visit. [facility] 07-17-2022 Miscellaneous Notes 30 days sent in then she needs to come in for her routine visit. Mychart message sent.//dmj ROYA: 03/08/22 (return in 6 week to f/u on anxiety) NOV: none scheduled Rx last sent in on 06/02/21 for # 84 with 3 refills. Pended rx for 30 day supply since pt is overdue for a follow up appointment. I will route rx to [facility] for review and to front line leader staff to assist with scheduling. documented in this encounter [facility] 07-14-2022 Telephone encounter Note [employer] message sent.//dmj [facility] 07-14-2022 Telephone encounter Note ROYA: 03/08/22 (return in 6 week to f/u on anxiety) NOV: none scheduled Rx last sent in on 06/02/21 for # [id number] with 3 refills. Pended rx for 30 day supply since pt is overdue for a follow up appointment. I will route rx to [facility] for review and to front line leader staff to assist with scheduling. [facility] 06-22-2022 Evaluation note Encounter Date 06/22/2022 06/22/2022 Will treat for a UTI. Discussed exam and findings with patient. Will call with urine culture results if abx needs changed d/t resistance; acknowledges understanding. Instructed on supportive care; i.e. rest, increase in fluids, avoidance of caffeine, proper hygiene with cleaning perineum, emptying bladder after intercourse. Use medication as directed. Patient encouraged to follow up within 1 week if not improving. If symptoms worsen, patient to be seen in ER. All questions answered. Patient expresses understanding and agreement with plan. [facility] 04-06-2023 History general Narrative - ReportedNo medical history recorded. Gynecological HistoryNo gynecological history recorded. Obstetrics History GPAL:G 0 P 0 0 0 0 [facility] 12-21-2022 History of Present illness Narrative* Aleida Saenz CNP - 03/08/2022 2:24 PM EST Video Visit [facility] [address] [facility] [id number] Via Real-time Synchronous Audiovisual [facility] 03/08/2022 Aleida Saenz CNP Provider Location: office Patient Location Cement Side Laster: None Patient Location: car Video Visit Consent Statement: I discussed risks, benefits and alternatives of a real-time synchronous audiovisual consultation with the patient (and any accompanying persons) including the risks that the patient s personal health details and medical records will be discussed over real-time, synchronous, interactive video/audio/telecommunication technology, the visit will not be recorded without the express consent of both the provider and the patient, and that there are some limitations compared to blxe-lz-qjrg evaluations. We elected to proceed. Subjective: Willow Valdez is a 21 y.o. female here for Chief Complaint Patient presents with Anxiety HPI needs a refill on her zoloft. Depression symptoms have subsided a little bit but, anxiety has gone up. Is wondering if she needs something else with the zoloft. Was on lamictal previously, and didn't like that. Also, has been on lexapro and prozac in the past, and higher doses she felt like blunted her emotions. She is not currently seeing a counselor but, plans to see one at school next semester. Review of Systems Genitourinary: Negative for dyspareunia, menstrual problem, pelvic pain, vaginal bleeding and vaginal pain. Reviewed by Provider: Allergies Meds Problems Med Hx Fam Hx Objective: Physical Exam Constitutional: Appearance: Normal appearance. HENT: Head: Normocephalic. Pulmonary: Effort: Pulmonary effort is normal. Musculoskeletal: Cervical back: Normal range of motion. Neurological: Mental Status: She is alert and oriented to person, place, and time. Psychiatric: Mood and Affect: Mood normal. Behavior: Behavior normal. Thought Content: Thought content normal. Judgment: Judgment normal. Assessment/Plan: Diagnoses and all orders for this visit: Anxiety Comments: Increase zoloft to 75 mg daily. Orders: - sertraline (ZOLOFT) 50 MG tablet; Take 1.5 (one and a half) tablets (75 mg total) by mouth daily . For any new medications prescribed today, patient was educated about indications for the medication, how to take the medication and potential side effects of the medications. Agreed starting to work with a counselor is a good idea. Return in about 6 weeks (around 04/19/2022) for Follow Up anxiety. documented in this [id number] Instructions* Patient Instructions* Jennifer Thompson PA-C - 12/22/2021 2:46 PM EDT Images from the original note were not included. Bronchitis: Care Instructions Your Care Instructions Bronchitis is inflammation of the bronchial tubes, which carry air to the lungs. The tubes swell and produce mucus, or phlegm. The mucus and inflamed bronchial tubes make you cough. You may have trouble breathing. Most cases of bronchitis are caused by viruses like those that cause colds. Antibiotics usually do not help and they may be harmful. Bronchitis usually develops rapidly and lasts about 2 to 3 weeks in otherwise healthy people. Follow-up care is a fonseca part of your treatment and safety. Be sure to make and go to all appointments, and call your doctor if you are having problems. It's also a good idea to know your test resultsand keep a list of the medicines you take. How can you care for yourself at home? Take all medicines exactly as prescribed. Call your doctor if you think you are having a problem with your medicine. Get some extra rest. Take an aocg-upn-xiewoed pain medicine, such as acetaminophen (Tylenol), ibuprofen (Advil, Motrin),or naproxen (Aleve) to reduce fever and relieve body aches. Read and follow all instructions on thelabel. Do not take two or more pain medicines at the same time unless the doctor told you to. Many pain medicines have acetaminophen, which is Tylenol. Too much acetaminophen (Tylenol) can be harmful. Take an mzem-omn-hinzeds cough medicine to help quiet a dry, hacking cough so that you can sleep. Avoid cough medicines that have more than one active ingredient. Read and follow all instructions on the label. Do not smoke. Smoking can make bronchitis worse. If you need help quitting, talk to your doctor about stop-smoking programs and medicines. These can increase your chances of quitting for good. When should you call for help? Call 911 anytime you think you may need emergency care. For example, call if: You have severe trouble breathing. Call your doctor now or seek immediate medical care if: You have new or worse trouble breathing. You cough up dark brown or bloody mucus (sputum). You have a new or higher fever. You have a new rash. Watch closely for changes in your health, and be sure to contact your doctor if: You cough more deeply or more often, especially if you notice more mucus or a change in the color of your mucus. You are not getting better as expected. Where can you learn more? Log into your personal health record on [email or web address] and enter H333 in the Education box to learn more about Bronchitis: Care Instructions. Current as of: May 25, 2021 Content Version: 13.4 [employer]. Care instructions adapted under license by your healthcare professional. If you have questions about a medical condition or this instruction, always ask your healthcare professional. [employer] disclaims any warranty or liability for your use of this information. documented in this [id number] History of Present illness Narrative* Jennifer Thompson PA-C - 12/22/2021 2:40 PM EDT PATIENT NAME: Willow Valdez [facility] [address] [place] [id number] : 2000 DATE OF VISIT: 12/22/2021 #: [id number] PROVIDER: Jennifer Thompson PA-C Chief Complaint Patient presents with Cough SUBJECTIVE 21 y.o. female presents Cough Cough Associated symptoms include shortness of breath. Pertinent negatives include no chest pain, chills,ear pain, fever, headaches, myalgias, postnasal drip, rash, rhinorrhea, sore throat or wheezing. Productive cough x 2 weeks since covid diagnosis. No fever since initial covid. Denies fever in last few days. Reports chest soreness from coughing and some shortness of breath. Reports nasal congestion. Dayquil helps a little bit. MEDICAL ISSUES Past Medical History: Diagnosis Date Allergic Anxiety Concussion Depression UTI (urinary tract infection) Patient Active Problem List Diagnosis Family history of thyroid disease Anxiety Depression SOCIAL HISTORY Social History Socioeconomic History Marital status: Single Tobacco Use Smoking status: Never Smokeless tobacco: Never Vaping Use Vaping Use: Some days Substances: Nicotine, Flavoring Devices: Disposable Substance and Sexual Activity Alcohol use: No Drug use: No Sexual activity: Not Currently Partners: Male control/protection: Condom, OCP FAMILY HISTORY Family History Problem Relation Age of Onset Heart attack Father 57 Thyroid disease Father hypothyroidism Arrhythmia Father bundle branch block Thyroid disease Brother hyperthryoidism Alzheimer's disease Maternal Grandmother Atrial fibrillation Maternal Grandmother Cancer Maternal Grandfather pancreatic Heart disease Maternal Grandfather Heart failure Paternal Grandmother Cancer Paternal Grandfather REVIEW OF SYSTEMS Review of Systems Constitutional: Negative for appetite change, chills and fever. HENT: Positive for congestion. Negative for ear pain, postnasal drip, rhinorrhea, sinus pain, sneezing, sore throat and trouble swallowing. Respiratory: Positive for cough, chest tightness and shortness of breath. Negative for wheezing. Cardiovascular: Negative for chest pain. Gastrointestinal: Negative for abdominal pain, diarrhea, nausea and vomiting. Musculoskeletal: Negative for arthralgias, myalgias and neck pain. Skin: Negative for rash. Neurological: Negative for headaches. MEDICATIONS PRIOR TO VISIT Current Outpatient Medications on File Prior to Visit Medication Sig Dispense Refill multivitamin capsule Take 1 capsule by mouth. naproxen sodium (ALEVE ORAL) Take by mouth. norethindrone-ethinyl estradiol (MICROGESTIN 1/20) 1-20 mg-mcg per tablet Take 1 (one) tablet by mouth daily . 84 tablet 3 sertraline (ZOLOFT) 50 MG tablet Take 1 (one) tablet (50 mg total) by mouth daily . 90 tablet 1 No current facility-administered medications on file prior to visit. ALLERGIES/INTOLERANCES Allergies Allergen Reactions Augmentin [Amoxicillin-Pot Clavulanate] GI Intolerance OBJECTIVE BP 124/85 Pulse (!) 53 Temp 98.5 F (36.9 C) SpO2 99% Physical Exam Vitals and nursing note reviewed. Constitutional: General: She is not in acute distress. Appearance: She is well-developed. She is not ill-appearing or toxic-appearing. HENT: Head: Normocephalic and atraumatic. Right Ear: External ear normal. Left Ear: External ear normal. Nose: Congestion present. Eyes: Conjunctiva/sclera: Conjunctivae normal. Pupils: Pupils are equal, round, and reactive to light. Pulmonary: Effort: Pulmonary effort is normal. Breath sounds: Normal breath sounds. Musculoskeletal: Cervical back: Normal range of motion. Lymphadenopathy: Cervical: Cervical adenopathy present. Skin: General: Skin is warm and dry. Neurological: Mental Status: She is alert and oriented to person, place, and time. Psychiatric: Mood and Affect: Mood normal. Behavior: Behavior normal. PROCEDURE Procedures Results No results found for this or any previous visit (from the past 168 hour(s)). ASSESSMENT/PLAN (expressed as patient instructions): 1. Bronchitis albuterol 90 mcg/actuation inhaler predniSONE (DELTASONE) 50 MG tablet No follow-ups on file. MDM Section ORDERS PLACED THIS VISIT No orders of the defined types were placed in this encounter. MEDICATION LIST AT END OF VISIT Current Outpatient Medications Medication Sig Dispense Refill albuterol 90 mcg/actuation inhaler Inhale 2 (two) puffs every 4 to 6 hours as needed for cough . 8 g 0 multivitamin capsule Take 1 capsule by mouth. naproxen sodium (ALEVE ORAL) Take by mouth. norethindrone-ethinyl estradiol (MICROGESTIN 1/20) 1-20 mg-mcg per tablet Take 1 (one) tablet by mouth daily . 84 tablet 3 predniSONE (DELTASONE) 50 MG tablet Take 1 (one) tablet (50 mg total) by mouth daily for 5 days . 5tablet 0 sertraline (ZOLOFT) 50 MG tablet Take 1 (one) tablet (50 mg total) by mouth daily . 90 tablet 1 No current facility-administered medications for this visit. documented in this [id number] Instructions* Patient Instructions* Jennifer Thompson PA-C - 06/30/2021 12:[address] [facility] [address] [phone] Legal Name: Willow Valdez Date of : 2000 Today's Date: 06/30/21 You tested NEGATIVE for COVID. You may use this note as documentation for any class or work you mayhave missed while awaiting test results. If you have not had a fever in the past 24 hours, you may return to your usual activities as you feel able. If you have had a fever, wait to return to your usual activities until you have been fever-free for 24 hours without the use of fever-reducing medication. You may use this note as documentation of your negative results and ability to return to school/work. If you have not been vaccinated against COVID-19, I encourage you to get the vaccine. The vaccine is recommended even if you have had COVID in the past since it can offer longer lasting immunity and may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 something else every day, such as brushing your teeth. What if you forget to take a pill? Always read the label for specific instructions, or call your doctor. Here are some basic guidelines: If you miss 1 hormone pill, take it as soon as you remember. Ask your doctor if you may need to usea backup control method, such as a condom, or not have intercourse. If you miss 2 or more hormone pills, take one as soon as you remember you forgot them. Then read the pill label or call your doctor about instructions on how to take your missed pills. Use a backup method of control or don't have intercourse for 7 days. is more likely if you miss more than 1 pill. If you had intercourse, you can use emergency contraception, such as the morning-after pill (Plan B). You can use emergency contraception for up to 5 days after having had intercourse, but it works best if you take it right away. What else do you need to know? The pill has side effects. You may have very light or skipped periods. You may have bleeding between periods (spotting). This usually decreases after 3 to 4 months. You may have mood changes, less interest in sex, or weight gain. The pill may reduce acne, heavy bleeding and cramping, and symptoms of premenstrual syndrome. Check with your doctor before you use any other medicines, including dcbw-fek-kxisbql medicines, vitamins, herbal products, and supplements. control hormones may not work as well to prevent when combined with other medicines. The pill doesn't protect against sexually transmitted infection (STIs), such as herpes or HIV/AIDS.If you're not sure whether your sex partner might have an STI, use a condom to protect against disease. When should you call for help? Call your doctor now or seek immediate medical care if: ? You have severe belly pain. ? You have signs of a blood clot, such as: Pain in your calf, back of the knee, thigh, or groin. Redness and swelling in your leg or groin. ? You have blurred vision or other problems seeing. ? You have a severe headache. ? You have severe trouble breathing. ?Watch closely for changes in your health, and be sure to contact your doctor if: ? You think you might be . ? You think you may be depressed. ? You think you may have been exposed to or have a sexually transmitted infection. Where can you learn more? Log into your personal health record on [email or web address] and enter Z218 in the Education box to learn more about Combination Control Pills: Care Instructions. Current as of: February 06, 2017 Content Version: 11.6 5908-3599 On[employer]. Care instructions adapted under license by your healthcare professional. If you have questions about a medical condition or this instruction, always ask your healthcare professional. [employer] disclaims any warranty or liability for your use of this information. in this encounter* Patient Instructions - Ammy Cavazos MD - 01/15/2018 12:24 PM EDT Formatting of this note may be different from the original. Start augmentin Strep Throat in Teens: Care Instructions Your Care Instructions Strep throat is a bacterial infection that causes a sudden, severe sore throat and fever. Strep throat, which is caused by bacteria called streptococcus, is treated with antibiotics. A strep test is usually necessary to tell if the sore throat is caused by strep bacteria. Treatment can help ease symptoms and may prevent future problems. Strep throat can spread to others until 24 hours after you begin taking antibiotics. Follow-up care is a fonseca part of your treatment and safety. Be sure to make and go to all appointments, and call your doctor if you are having problems. It's also a good idea to know your test resultsand keep a list of the medicines you take. How can you care for yourself at home? Take your antibiotics as directed. Do not stop taking them just because you feel better. You need to take the full course of antibiotics. For 24 hours after you begin taking antibiotics, stay home from school and try to avoid contact with other people, especially infants and children. Do not sneeze or cough on others, and wash your hands often. Keep your drinking glass and eating utensils separate from those of others, and wash theseitems well in hot, soapy water. Gargle with warm salt water at least once each hour to help reduce swelling and make your throat feel better. Use 1 teaspoon of salt mixed in 8 fluid ounces of warm water. Take an gsyk-rpf-gpfvjxe pain medicine, such as acetaminophen (Tylenol), ibuprofen (Advil, Motrin),or naproxen (Aleve). Read and follow all instructions on the label. No one younger than 20 should take aspirin. It has been linked to Lexi syndrome, a serious illness. Try an vxwb-owm-ubhrwqc anesthetic throat spray or throat lozenges, which may help relieve throat pain. Drink plenty of fluids. Fluids may help soothe an irritated throat. Hot fluids, such as tea or soup, may help your throat feel better. Eat soft solids and drink plenty of clear liquids. Flavored ice pops, ice cream, scrambled eggs, gelatin dessert, and sherbet may also soothe the throat. Get lots of rest. Do not smoke, and avoid secondhand smoke. If you need help quitting, talk to your doctor about stop-smoking programs and medicines. These can increase your chances of quitting for good. Use a vaporizer or humidifier to add moisture to the air in your bedroom. Follow the directions forcleaning the machine. When should you call for help? Call your doctor now or seek immediate medical care if: ? You have new or worse symptoms of infection, such as: Increased pain, swelling, warmth, or redness. Red streaks leading from the area. Pus draining from the area. A fever. ? You have new pain, or your pain gets worse. ? You have new or worse trouble swallowing. ? You seem to be getting sicker. ?Watch closely for changes in your health, and be sure to contact your doctor if: ? You do not get better as expected. Where can you learn more? Log into your personal health record on [email or web address]://[email or web address].Rival IQ and enter B914 in the Education box to learn more about Strep Throat in Teens: Care Instructions. Current as of: July 28, 2016 Content Version: 11.6 3476-4604 OnShift. Care instructions adapted under license by your healthcare professional. If you have questions about a medical condition or this instruction, always ask your healthcare professional. [employer] disclaims any warranty or liability for your use of this information. in this encounter* Patient Instructions* Aleida Saenz, LINE LEAD - 01/15/2019 2:52 PM EDT Well Care - Tips for Teens: Care Instructions Your Care Instructions Being a teen can be exciting and tough. You are finding your place in the world. And you may have alot on your mind these days too school, friends, sports, parents, and maybe even how you look. Someteens begin to feel the effects of stress, such as headaches, neck or back pain, or an upset stomach. To feel your best, it is important to start good health habits now. Follow-up care is a fonseca part of your treatment and safety. Be sure to make and go to all appointments, and call your doctor if you are having problems. It's also a good idea to know your test resultsand keep a list of the medicines you take. How can you care for yourself at home? Staying healthy can help you cope with stress or depression. Here are some tips to keep you healthy. Get at least 30 minutes of exercise on most days of the week. Walking is a good choice. You also may want to do other activities, such as running, swimming, cycling, or playing tennis or team sports. Try cutting back on time spent on TV or video games each day. Munch at least 5 helpings of fruits and veggies. A helping is a piece of fruit or cup of vegetables. Cut back to 1 can or small cup of soda or juice drink a day. Try water and milk instead. Cheese, yogurt, milk have at least 3 cups a day to get the calcium you need. The decision to have sex is a serious one that only you can make. Not having sex is the best way toprevent HIV, STIs (sexually transmitted infections), and . If you do choose to have sex, condoms and control can increase your chances of protection against STIs and . Talk to an adult you feel comfortable with. Confide in this person and ask for his or her advice. This can be a parent, a teacher, a football coach, or someone else you trust. Healthy ways to deal with stress Get 9 to 10 hours of sleep every night. Eat healthy meals. Go for a long walk. Dance. Shoot hoops. Go for a bike ride. Get some exercise. Talk with someone you trust. Laugh, cry, sing, or write in a journal. When should you call for help? Call 911 anytime you think you may need emergency care. For example, call if: You feel life is meaningless or think about killing yourself. Talk to a counselor or doctor if any of the following problems lasts for 2 or more weeks. You feel sad a lot or cry all the time. You have trouble sleeping or sleep too much. You find it hard to concentrate, make decisions, or remember things. You change how you normally eat. You feel guilty for no reason. Where can you learn more? Log into your personal health record on https://Hactust.Jetabroad and enter S924 in the Education box to learn more about Well Care - Tips for Teens: Care Instructions. Current as of: February 27, 2018 Content Version: 12.1 4072-1925 OnShift. Care instructions adapted under license by your healthcare professional. If you have questions about a medical condition or this instruction, always ask your healthcare professional. [employer] disclaims any warranty or liability for your use of this information. documented in this encounter* Patient Instructions* Aleida Saenz CNP - 07/30/2018 2:10 PM EDT Urinary Tract Infection in Women: Care Instructions Your Care Instructions A urinary tract infection, or UTI, is a general term for an infection anywhere between the kidneys and the urethra (where urine comes out). Most UTIs are bladder infections. They often cause pain or burning when you urinate. UTIs are caused by bacteria and can be cured with antibiotics. Be sure to complete your treatment so that the infection goes away. Follow-up care is a fonseca part of your treatment and safety. Be sure to make and go to all appointments, and call your doctor if you are having problems. It's also a good idea to know your test resultsand keep a list of the medicines you take. How can you care for yourself at home? Take your antibiotics as directed. Do not stop taking them just because you feel better. You need to take the full course of antibiotics. Drink extra water and other fluids for the next day or two. This may help wash out the bacteria that are causing the infection. (If you have kidney, heart, or liver disease and have to limit fluids, talk with your doctor before you increase your fluid intake.) Avoid drinks that are carbonated or have caffeine. They can irritate the bladder. Urinate often. Try to empty your bladder each time. To relieve pain, take a hot bath or lay a heating pad set on low over your lower belly or genital area. Never go to sleep with a heating pad in place. To prevent UTIs Drink plenty of water each day. This helps you urinate often, which clears bacteria from your system. (If you have kidney, heart, or liver disease and have to limit fluids, talk with your doctor before you increase your fluid intake.) Urinate when you need to. Urinate right after you have sex. Change sanitary pads often. Avoid douches, bubble baths, feminine hygiene sprays, and other feminine hygiene products that havedeodorants. After going to the bathroom, wipe from front to back. When should you call for help? Call your doctor now or seek immediate medical care if: Symptoms such as fever, chills, nausea, or vomiting get worse or appear for the first time. You have new pain in your back just below your rib cage. This is called flank pain. There is new blood or pus in your urine. You have any problems with your antibiotic medicine. Watch closely for changes in your health, and be sure to contact your doctor if: You are not getting better after taking an antibiotic for 2 days. Your symptoms go away but then come back. Where can you learn more? Log into your personal health record on https://Beti.[employer] and enter K848 in the Education box to learn more about Urinary Tract Infection in Women: Care Instructions. Current as of: March 06, 2018 Content Version: 12.0 1745-9641 [employer]. Care instructions adapted under license by your healthcare professional. If you have questions about a medical condition or this instruction, always ask your healthcare professional. [employer] disclaims any warranty or liability for your use of this information. documented in this encounter* Patient Instructions* Aleida Saenz CNP - 07/25/2018 11:59 AM EDT Fatigue: Care Instructions Your Care Instructions Fatigue is a feeling of tiredness, exhaustion, or lack of energy. You may feel fatigue because of too much or not enough activity. It can also come from stress, lack of sleep, boredom, and poor diet.Many medical problems, such as viral infections, can cause fatigue. Emotional problems, especially depression, are often the cause of fatigue. Fatigue is most often a symptom of another problem. Treatment for fatigue depends on the cause. Forexample, if you have fatigue because you have a certain health problem, treating this problem also treats your fatigue. If depression or anxiety is the cause, treatment may help. Follow-up care is a fonseca part of your treatment and safety. Be sure to make and go to all appointments, and call your doctor if you are having problems. It's also a good idea to know your test resultsand keep a list of the medicines you take. How can you care for yourself at home? Get regular exercise. But don't overdo it. Go back and forth between rest and exercise. Get plenty of rest. Eat a healthy diet. Do not skip meals, especially breakfast. Reduce your use of caffeine, tobacco, and alcohol. Caffeine is most often found in coffee, tea, cola drinks, and chocolate. Limit medicines that can cause fatigue. This includes tranquilizers and cold and allergy medicines. When should you call for help? Watch closely for changes in your health, and be sure to contact your doctor if: You have new symptoms such as fever or a rash. Your fatigue gets worse. You have been feeling down, depressed, or hopeless. Or you may have lost interest in things that you usually enjoy. You are not getting better as expected. Where can you learn more? Log into your personal health record on [email or web address] and enter W864 in the Education box to learn more about Fatigue: Care Instructions. Current as of: December 09, 2017 Content Version: 12.0 4845-7254 [employer]. Care instructions adapted under license by your healthcare professional. If you have questions about a medical condition or this instruction, always ask your healthcare professional. [employer] disclaims any warranty or liability for your use of this information. Sore Throat: Care Instructions Your Care Instructions Infection by bacteria or a virus causes most sore throats. Cigarette smoke, dry air, air pollution,allergies, and yelling can also cause a sore throat. Sore throats can be painful and annoying. Fortunately, most sore throats go away on their own. If you have a bacterial infection, your doctor may prescribe antibiotics. Follow-up care is a fonseca part of your treatment and safety. Be sure to make and go to all appointments, and call your doctor if you are having problems. It's also a good idea to know your test resultsand keep a list of the medicines you take. How can you care for yourself at home? If your doctor prescribed antibiotics, take them as directed. Do not stop taking them just because you feel better. You need to take the full course of antibiotics. Gargle with warm salt water once an hour to help reduce swelling and relieve discomfort. Use 1 teaspoon of salt mixed in 1 cup of warm water. Take an wlta-vqx-jnkclco pain medicine, such as acetaminophen (Tylenol), ibuprofen (Advil, Motrin),or naproxen (Aleve). Read and follow all instructions on the label. Be careful when taking zwbj-vnr-udotigg cold or flu medicines and Tylenol at the same time. Many ofthese medicines have acetaminophen, which is Tylenol. Read the labels to make sure that you are nottaking more than the recommended dose. Too much acetaminophen (Tylenol) can be harmful. Drink plenty of fluids. Fluids may help soothe an irritated throat. Hot fluids, such as tea or soup, may help decrease throat pain. Use lvhc-ncp-aaonuto throat lozenges to soothe pain. Regular cough drops or hard candy may also help. These should not be given to young children because of the risk of choking. Do not smoke or allow others to smoke around you. If you need help quitting, talk to your doctor about stop-smoking programs and medicines. These can increase your chances of quitting for good. Use a vaporizer or humidifier to add moisture to your bedroom. Follow the directions for cleaning the machine. When should you call for help? Call your doctor now or seek immediate medical care if: You have new or worse trouble swallowing. Your sore throat gets much worse on one side. Watch closely for changes in your health, and be sure to contact your doctor if you do not get better as expected. Where can you learn more? Log into your personal health record on https://[email or web address] and enter U420 in the Education box to learn more about Sore Throat: Care Instructions. Current as of: January 06, 2018 Content Version: 12.0 4519-7197 [employer]. Care instructions adapted under license by your healthcare professional. If you have questions about a medical condition or this instruction, always ask your healthcare professional. [employer] disclaims any warranty or liability for your use of this information. 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 Subjective: Patient ID: Willow Valdez is a 17 y.o. female here for Chief Complaint Patient presents with Sore Throat patient in the office with a sore throat x 2 days . Sore Throat This is a new problem. The current episode started yesterday. The problem has been gradually worsening. Neither side of throat is experiencing more pain than the other. Maximum temperature: low grade. The pain is moderate. Associated symptoms include headaches, a hoarse voice, a plugged ear sensation, neck pain, swollen glands and trouble swallowing. Pertinent negatives include no abdominal pain,congestion, coughing, diarrhea, ear discharge, ear pain, shortness of breath, stridor or vomiting. She has tried gargles and NSAIDs (chloroseptic) for the symptoms. The treatment provided mild relief. The following portions of the patient's history were reviewed and updated as appropriate: allergies, current medications, past family history, past medical history, past social history, past surgicalhistory and problem list. Review of Systems Constitutional: Negative for chills, fatigue and fever. HENT: Positive for hoarse voice, sore throat and trouble swallowing. Negative for congestion, ear discharge, ear pain, postnasal drip, rhinorrhea, sinus pressure and sneezing. Eyes: Negative for discharge and redness. Respiratory: Negative for cough, chest tightness, shortness of breath, wheezing and stridor. Cardiovascular: Negative for chest pain. Gastrointestinal: Negative for abdominal pain, diarrhea and vomiting. Musculoskeletal: Positive for neck pain. Negative for myalgias. Skin: Negative for rash. Allergic/Immunologic: Negative for environmental allergies. Neurological: Positive for headaches. Objective: BP 103/70 (BP Location: Right arm, Patient Position: Sitting) Pulse (!) 102 Temp 99 ?F (37.2 ?C) Resp 20 Ht 5' 8 Wt 57.2 kg (126 lb 3.2 oz) LMP 11/20/2017 (Approximate) SpO2 94% BMI 19.19 kg/m Physical Exam Constitutional: She is oriented to person, place, and time. She appears well- developed and well-nourished. HENT: Head: Normocephalic and atraumatic. Right Ear: Hearing, tympanic membrane, external ear and ear canal normal. Left Ear: Hearing, tympanic membrane, external ear and ear canal normal. Nose: Mucosal edema and rhinorrhea present. Right sinus exhibits no maxillary sinus tenderness and no frontal sinus tenderness. Left sinus exhibits no maxillary sinus tenderness and no frontal sinus tenderness. Mouth/Throat: Uvula is midline and mucous membranes are normal. Oropharyngeal exudate and posteriororopharyngeal erythema present. No posterior oropharyngeal edema or tonsillar abscesses. Eyes: Conjunctivae and EOM are normal. Neck: Normal range of motion. Neck supple. No thyromegaly present. Cardiovascular: Normal rate, regular rhythm and normal heart sounds. Exam reveals no friction rub. Pulmonary/Chest: Effort normal and breath sounds normal. She has no wheezes. She has no rales. Musculoskeletal: Normal range of motion. She exhibits no edema. Lymphadenopathy: She has cervical adenopathy. Right cervical: Superficial cervical adenopathy present. Left cervical: Superficial cervical adenopathy present. Neurological: She is alert and oriented to person, place, and time. No cranial nerve deficit. She exhibits normal muscle tone. Coordination normal. Skin: Skin is warm and dry. No rash noted. Psychiatric: She has a normal mood and affect. Her behavior is normal. Assessment/Plan: Diagnoses and all orders for this visit: Strep throat - amoxicillin-clavulanate (AUGMENTIN) 875-125 mg per tablet; Take 1 (one) tablet by mouth 2 (two) times a day for 10 days. Sore throat - POC Rapid Strep A Patient Instructions Start augmentin Strep Throat in Teens: Care Instructions Return if symptoms worsen or fail to improve. in this encounter* Aleida Saenz CNP - 01/23/2018 8:58 AM EST Formatting of this note may be different from the original. Subjective History was provided by the patient and mother. Willow Valdez is a 17 y.o. female who is here for this well-child visit. Immunization History Administered Date(s) Administered DTaP 01/01/2002, 03/03/2002, 06/05/2002, 05/05/2003, 10/12/2006 HPV Quadrivalent (Gardasil) 12/12/2013, 02/23/2014, 11/18/2014 Hepatitis A Pediatric 04/09/2007, 12/07/2009 Hepatitis B 01/01/2002, 03/03/2002, 08/01/2002 HiB 01/01/2002, 03/03/2002, 08/01/2002, 11/05/2002, 02/04/2003 INFLUENZA IIV3 3YO OR > FLUZONE 19148 12/12/2013 IPV 01/01/2002, 03/03/2002, 11/19/2002, 10/12/2006 Influenza, Quadrivalent Nasal (FluMist Quad) 02/26/2003, 12/22/2003, 01/25/2008, 12/17/2008, 02/23/2011, 01/28/2012, 12/25/2012, 12/28/2014 MMR 02/04/2003, 10/12/2006 Meningococcal Conjugate (MENACTRA) 12/25/2012 Pneumococcal Conjugate 13-Valent (Prevnar 13) 01/01/2002, 03/03/2002, 06/05/2002 Tdap 12/25/2012 Varicella (Varivax) 11/19/2002, 10/12/2006 The following portions of the patient's history were reviewed and updated as appropriate: allergies, current medications, past family history, past medical history, past social history, past surgicalhistory and problem list. Current Issues: Current concerns include: irregular periods. She hasn't had a period since starting the control. Prior to starting the control her periods were irregular. They wouldn't occur every month,and when she did get them, they would only last like 2 days. She has had her period for 2 year now.Also, she is sick all the time. She has had tonsillitis twice recently, and then had strep throat. Two mono tests have been negative. Currently menstruating? yes; current menstrual pattern: flow is light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 mm. Again, her test was negative. Urine is unremarkable. She is already on Macrobid, however, so we will culture that. Blood work is good. I did have a long discussion with them. We do recommend seeing a executive assistant, maybe having her hormones evaluated. See, at this age, if she is already having a cyst, she needs to be put on some type of control for hormone stabilization. She will continue her Macrobid. We will write her on Zofran, ibuprofen for discomfort, and she will be discharged at this time. I gave the patient my usual discharge instructions . end Sofi Howe, 07/31/18 5033 Sofi Howe, 07/31/18 1627 Pt with right lower abdominal pain starting two days ago, was diagnosed with UTI and started on macrobid yesterday. Pain increasing, nauseated today. documented in this encounter Care Teams (unrecognized sec tion and content) Geophysical Support Specialist Relationship Specialty Start Date End Date Aleida Saenz CNP PCP - General Family Medicine 12/05/17 Aleida Saenz CNP [address] [place] [address] PCP - HOANG Community Health Provider - [place] [employer] 10/17/19 Ammy Diaz CNP Nurse Practitioner 01/15/19 Geophysical Support Specialist Relationship Specialty Start Date End Date Aleida Saenz CNP PCP - General Family Medicine 12/05/17 Aleida Saenz CNP [address] [place] [address] PCP - HOANG Attributed Provider - [place] [employer] 10/17/19 Ammy Diaz CNP Nurse Practitioner 01/15/19 Geophysical Support Specialist Relationship Specialty Start Date End Date Aleida Saenz CNP PCP - General Family Medicine 12/05/17 Aleida Saenz [employer] [address] [place] [address] PCP - HOANG Attributed Provider - [place] [employer] 03/19/19 Ammy Diaz, ANNA Nurse Practitioner 01/15/19 Geophysical Support Specialist Relationship Specialty Start Date End Date Aleida Saenz CNP PCP - General Family Medicine 12/05/17 Aleida Saenz [employer] [address] [place] [address] PCP - HOANG Attributed Provider - [place] [employer] 03/18/21 Ammy Diaz CNP Nurse Practitioner 01/15/19 Geophysical Support Specialist Relationship Specialty Start Date End Date Aleida Saenz CNP PCP - General Family Medicine 12/05/17 Ammy Diaz, ANNA Nurse Practitioner 01/15/19 Geophysical Support Specialist Relationship Specialty Start Date End Date Aleida Saenz CNP PCP - General Family Medicine 12/05/17 Ammy Diaz, ANNA Nurse Practitioner 01/15/19 Geophysical Support Specialist Relationship Specialty Start Date End Date Aleida Saenz CNP PCP - General Family Medicine 12/05/17 Ammy Diaz CNP Nurse Practitioner 01/15/19 Geophysical Support Specialist Relationship Specialty Start Date End Date Aleida Saenz CNP PCP - General Family Medicine 12/05/17 Aleida Saenz, ANNA [address] [place], [place] [id number] PCP - HOANG Attributed Provider - [place] [employer] 05/17/21 03/18/50 Ammy Diaz CNP Nurse Practitioner 01/15/19 Geophysical Support Specialist Relationship Specialty Start Date End Date Aleida Saenz CNP PCP - General Family Medicine 12/05/17 Yady Ramos, [address] [address] PCP - HOANG Attributed Provider - [place] [employer] 05/17/21 03/18/50 Ammy Diaz CNP Nurse Practitioner 01/15/19 Geophysical Support Specialist Relationship Specialty Start Date End Date Aleida Saenz CNP PCP - General Family Medicine 12/05/17 Yady Ramos, [address] [address] PCP - HOANG Attributed Provider - [place] [employer] 05/17/21 03/18/50 Ammy Diaz CNP Nurse Practitioner 01/15/19 Geophysical Support Specialist Relationship Specialty Start Date End Date Aleida Saenz CNP PCP - General Family Medicine 12/05/17 Yady Ramos DO [address] [place] [address] PCP - HOANG Attributed Provider - [place] [employer] 05/17/21 03/18/50 Ammy Diaz CNP Nurse Practitioner 01/15/19 Geophysical Support Specialist Relationship Specialty Start Date End Date Aleida Saenz CNP PCP - General Family Medicine 12/05/17 Yady Ramos DO [address] [place] [address] PCP - HOANG Attributed Provider - [place] [employer] 05/17/21 03/18/50 Ammy Diaz, ANNA Nurse Practitioner 01/15/19 Geophysical Support Specialist Relationship Specialty Start Date End Date Aleida Saenz CNP PCP - General Family Medicine 12/05/17 Yady Ramos DO [address] [place] [address] PCP - HOANG Attributed Provider - [place] [employer] 05/17/21 03/18/50 Ammy Diaz CNP Nurse Practitioner 01/15/19 Geophysical Support Specialist Relationship Specialty Start Date End Date Aleida Saenz CNP PCP - General Family Medicine 12/05/17 Yady Ramos DO [address] [place] [address] PCP - HOANG Attributed Provider - [place] [employer] 05/17/21 03/18/50 Ammy Diaz CNP Nurse Practitioner 01/15/19 Geophysical Support Specialist Relationship Specialty Start Date End Date Aleida Saenz ANNA Mccray PCP - General Family Medicine 12/05/17 Yady Ramos DO [address] [place] [address] PCP - HOANG Attributed Provider - [place] [employer] 05/17/21 03/18/50 Ammy Diaz CNP Nurse Practitioner 01/15/19 Geophysical Support Specialist Relationship Specialty Start Date End Date Yady Ramos DO [address] [place] [address] PCP - HOANG Attributed Provider - [place] [employer] 05/17/21 03/18/50 Irene Vazquez DO [address] [place] [address] [place] [address] PCP - General Family Medicine 09/21/22 Ammy Diaz CNP Nurse Practitioner 01/15/19 Geophysical Support Specialist Relationship Specialty Start Date End Date Irene Vazquez DO [address] [place] [address] [place] [address] PCP - General Family Medicine 09/21/22 Irene Vazquez DO [address] [place] [address] [place] [address] PCP - HOANG Attributed Provider - [place] [employer] 05/17/21 03/18/50 Ammy Diaz, ANNA Nurse Practitioner 01/15/19 Geophysical Support Specialist Relationship Specialty Start Date End Date Irene Vazquez DO [address] [place] [address] PCP - General Family Medicine 09/21/22 Irene Vazquez DO [address] [place] [address] PCP - HOANG Attributed Provider - [place] [employer] 05/17/21 03/18/50 Ammy Diaz, LINE LEAD Nurse Practitioner 01/15/19 Geophysical Support Specialist Relationship Specialty Start Date End Date Irene Vazquez DO [address] [place] [address] PCP - General Family Medicine 09/21/22 Irene Vazquez DO [address] [place] [address] PCP - HOANG Attributed Provider - [place] [employer] 05/17/21 03/18/50 Ammy Diaz, ANNA Nurse Practitioner 01/15/19 Geophysical Support Specialist Relationship Specialty Start Date End Date Irene Vazquez DO [address] [place] [address] PCP - General Family Medicine 09/21/22 Irene Vazquez DO [address] [place] [address] PCP - HOANG Attributed Provider - [place] [employer] 05/17/21 03/18/50 Ammy Diaz, ANNA Nurse Practitioner 01/15/19 Geophysical Support Specialist Relationship Specialty Start Date End Date Irene Vazquez DO [address] [place] [address] PCP - General Family Medicine 09/21/22 Irene Vazquez DO [address] [place] [address] PCP - HOANG Attributed Provider - [place] [employer] 05/17/21 03/18/50 Ammy Diaz, ANNA Nurse Practitioner 01/15/19 Geophysical Support Specialist Relationship Specialty Start Date End Date Irene Vazquez DO [address] [place] [address] PCP - General Family Medicine 09/21/22 Irene Vazquez DO [address] [place] [address] PCP - HOANG Attributed Provider - [place] [employer] 05/17/21 03/18/50 Ammy Diaz, ANNA Nurse Practitioner 01/15/19 Geophysical Support Specialist Relationship Specialty Start Date End Date Irene Vazquez DO [address] [place] [address] PCP - General Family Medicine 09/21/22 Irene Vazquez DO [address] [place] [address] PCP - HOANG Attributed Provider - [place] [employer] 05/17/21 03/18/50 Ammy Diaz, ANNA Nurse Practitioner 01/15/19 Geophysical Support Specialist Relationship Specialty Start Date End Date Irene Vazquez DO [address] [place] [address] PCP - General Family Medicine 09/21/22 Irene Vazquez DO [address] [facility] [address] [place], [facility] PCP - HOANG Attributed Provider - [place] [employer] 05/17/21 03/18/50 Ammy Diaz, ANNA Nurse Practitioner 01/15/19 Geophysical Support Specialist Relationship Specialty Start Date End Date Irene Vazquez DO [address] [place] [address] PCP - General Family Medicine 09/21/22 Irene Vazquez DO [address] [place] [address] PCP - HOANG Attributed Provider - [place] [employer] 05/17/21 03/18/50 Ammy Diaz, ANNA Nurse Practitioner 01/15/19 Geophysical Support Specialist Relationship Specialty Start Date End Date Irene Vazquez DO [address] [place] [address] PCP - General Family Medicine 09/21/22 Irene Vazquez DO [address] [place] [address] PCP - HOANG Attributed Provider - [place] [employer] 05/17/21 03/18/50 Ammy Diaz, ANNA Nurse Practitioner 01/15/19 Geophysical Support Specialist Relationship Specialty Start Date End Date Janes Vazquezbetsy Solis DO [address] [place] [address] [place] [address] PCP - General Family Medicine 09/21/22 Ammy Diaz CNP Nurse Practitioner 01/15/19 Geophysical Support Specialist Relationship Specialty Start Date End Date Janes Vazquezbetsy Solis DO [address] [place] [address] [place] [address] PCP - General Family Medicine 09/21/22 Ammy Diaz CNP Nurse Practitioner 01/15/19 FOR RECORDS PERTAINING TO PATIENTS WHO ARE OR HAVE BEEN ENROLLED IN A CHEMICAL DEPENDENCY/SUBSTANCEABUSE PROGRAM, SOME INFORMATION MAY BE OMITTED. This clinical summary was aggregated from multiple sources. Caution should be exercised in using it in the provision of clinical care. This summary normalizes information from multiple sources, and as a consequence, information in this document may materially change the coding, format and clinical context of patient data. In addition, data may be omitted in some cases. CLINICAL DECISIONS SHOULD BE BASED ON THE PRIMARY CLINICAL RECORDS. [facility] [employer] [facility]. provides no warranty or guarantee of the accuracy or completeness of information in this document.
--- NOTE | 2025-01-04 11:08 | CM.ED ---
Social Work Date of referral: 01/04/25 Reason for referral: Resources Referred by: Social Work identification Patient provided consent for Social Work visit. Gasket Former checked in on patient to see how she is doing which patient stated she is feeling better. Patient stated she has undergone some recent changes in her medications these past few weeks and feels as though there is a correlation. Patient stated her medications are now being managed by her primary care physician whom patient will reach out to for med. adjustment. Patient stated she no longer sees a psychiatrist because their speciality fees are more expensive. Patient is not currently connected with a mental health therapist. Patient stated she has tried talk therapy in the past but has never found a good fit. Gasket Former encouraged patient to consider trying again. Gasket Former reviewed some overall coping skills/strategies and anxiety reduction techniques and provided patient with numerous written resources for coping skills/anxiety management and local mental health services. Patient expressed appreciation and denied the need for any additional support at this time. Sade Juarez, EMAIL MANAGER, GENERAL FARMWORKER
[2025-01-04 11:23] VITALS: BP 127/82; PULSE 81; RESP 18; TEMP 36.8; O2SAT 100
== END 2025-01-04 11:28 | disposition home or self-care (01) ==
PROVIDERS: Emergency Provider Surgery; Visit Provider Surgery
DX: F41.1 Generalized anxiety disorder (principal); F17.200 Nicotine dependence, unspecified, uncomplicated; Z79.899 Other long term (current) drug therapy; F32.A Depression, unspecified
CPT/HCPCS: 99282